=== PATIENT | male | born 1955 | race Caucasian/White ===

== ENCOUNTER → 2020-03-17 16:27 | Outpatient (BNVA) | payer SELFPAY | PROVIDERS: PCP Internal Medicine; Visit Provider Internal Medicine | DX: Z86.73 Personal history of transient ischemic attack (TIA), and cerebral infarction without residual deficits (principal); Z51.81 Encounter for therapeutic drug level monitoring; Z79.01 Long term (current) use of anticoagulants | CPT/HCPCS: 85610; 99211 ==

== ENCOUNTER 2020-03-20 06:11 | Outpatient (REF) | payer BC, SELFPAY | END 2020-03-20 06:12 | disposition home or self-care (01) | LOC: HO.LAB 06:11 | PROVIDERS: PCP Internal Medicine; Visit Provider Internal Medicine | DX: Z20.828 Contact with and (suspected) exposure to other viral communicable diseases (principal) | CPT/HCPCS: 87635 ==

== ENCOUNTER → 2020-03-27 15:52 | Outpatient (BNVA) | payer SELFPAY | PROVIDERS: PCP Internal Medicine; Visit Provider Internal Medicine | DX: Z86.73 Personal history of transient ischemic attack (TIA), and cerebral infarction without residual deficits (principal); Z79.01 Long term (current) use of anticoagulants; Z51.81 Encounter for therapeutic drug level monitoring | CPT/HCPCS: 85610; 99211 ==

== ENCOUNTER → 2020-03-31 15:53 | Outpatient (BNVA) | payer SELFPAY | PROVIDERS: PCP Internal Medicine; Visit Provider Internal Medicine | DX: Z86.73 Personal history of transient ischemic attack (TIA), and cerebral infarction without residual deficits (principal); Z51.81 Encounter for therapeutic drug level monitoring; Z79.01 Long term (current) use of anticoagulants | CPT/HCPCS: 85610; 99211 ==

== ENCOUNTER → 2020-04-06 15:36 | Outpatient (BNVA) | payer BC, SELFPAY | PROVIDERS: PCP Internal Medicine; Visit Provider Urology | DX: C61 Malignant neoplasm of prostate (principal) | CPT/HCPCS: 96372; J9217 ==

== ENCOUNTER → 2020-04-07 16:11 | Outpatient (BNVA) | payer BC, SELFPAY | PROVIDERS: PCP Internal Medicine; Visit Provider Internal Medicine | DX: Z86.73 Personal history of transient ischemic attack (TIA), and cerebral infarction without residual deficits (principal); Z51.81 Encounter for therapeutic drug level monitoring; Z79.01 Long term (current) use of anticoagulants | CPT/HCPCS: 85610; 99211 ==

== ENCOUNTER → 2020-04-25 15:48 | Outpatient (BNVA) | payer BC, SELFPAY | PROVIDERS: PCP Internal Medicine; Visit Provider Internal Medicine | DX: Z86.73 Personal history of transient ischemic attack (TIA), and cerebral infarction without residual deficits (principal); Z51.81 Encounter for therapeutic drug level monitoring; Z79.01 Long term (current) use of anticoagulants | CPT/HCPCS: 85610; 99211 ==

== ENCOUNTER → 2020-05-30 15:59 | Outpatient (BNVA) | payer BC, SELFPAY | PROVIDERS: PCP Internal Medicine; Visit Provider Internal Medicine | DX: Z86.73 Personal history of transient ischemic attack (TIA), and cerebral infarction without residual deficits (principal); Z51.81 Encounter for therapeutic drug level monitoring; Z79.01 Long term (current) use of anticoagulants | CPT/HCPCS: 85610; 99211 ==

== ENCOUNTER → 2020-06-06 16:13 | Outpatient (BNVA) | payer BC, SELFPAY | PROVIDERS: PCP Internal Medicine; Visit Provider Internal Medicine | DX: Z86.73 Personal history of transient ischemic attack (TIA), and cerebral infarction without residual deficits (principal); Z51.81 Encounter for therapeutic drug level monitoring; Z79.01 Long term (current) use of anticoagulants | CPT/HCPCS: 85610; 99211 ==

== ENCOUNTER → 2020-07-26 15:29 | Outpatient (BNVA) | payer BC, SELFPAY | PROVIDERS: PCP Internal Medicine; Visit Provider Internal Medicine | DX: Z86.73 Personal history of transient ischemic attack (TIA), and cerebral infarction without residual deficits (principal); Z51.81 Encounter for therapeutic drug level monitoring; Z79.01 Long term (current) use of anticoagulants | CPT/HCPCS: 99211 ==

== ENCOUNTER → 2020-08-16 16:02 | Outpatient (BNVA) | payer BC, SELFPAY | PROVIDERS: PCP Internal Medicine; Visit Provider Internal Medicine | DX: Z86.73 Personal history of transient ischemic attack (TIA), and cerebral infarction without residual deficits (principal); Z51.81 Encounter for therapeutic drug level monitoring; Z79.01 Long term (current) use of anticoagulants | CPT/HCPCS: 85610; 99211 ==

== ENCOUNTER 2020-09-05 15:34 | Outpatient (REF) | payer BC, SELFPAY ==
[2020-09-05 17:06] LABS: PSA,Total (Free>4and<10) 0.05 ng/mL (0.00-4.00)
== END 2020-09-05 15:35 | disposition home or self-care (01) ==
LOC: HO.LAB 15:34
PROVIDERS: PCP Internal Medicine; Visit Provider Urology
DX: N40.1 Benign prostatic hyperplasia with lower urinary tract symptoms (principal); N13.8 Other obstructive and reflux uropathy; Z12.5 Encounter for screening for malignant neoplasm of prostate
CPT/HCPCS: 36415; 84153

== ENCOUNTER → 2020-09-13 15:32 | Outpatient (BNVA) | payer BC, SELFPAY | PROVIDERS: PCP Internal Medicine; Visit Provider Urology ==

== ENCOUNTER → 2020-09-14 15:44 | Outpatient (BNVA) | payer BC, SELFPAY | PROVIDERS: PCP Internal Medicine; Visit Provider Internal Medicine | DX: Z86.73 Personal history of transient ischemic attack (TIA), and cerebral infarction without residual deficits (principal); Z79.01 Long term (current) use of anticoagulants; Z51.81 Encounter for therapeutic drug level monitoring | CPT/HCPCS: 85610; 99211 ==

== ENCOUNTER → 2020-10-12 15:53 | Outpatient (BNVA) | payer BC, SELFPAY | PROVIDERS: PCP Internal Medicine; Visit Provider Internal Medicine | DX: Z86.73 Personal history of transient ischemic attack (TIA), and cerebral infarction without residual deficits (principal); Z51.81 Encounter for therapeutic drug level monitoring; Z79.01 Long term (current) use of anticoagulants | CPT/HCPCS: 85610; 99211 ==

== ENCOUNTER → 2020-10-19 16:06 | Outpatient (BNVA) | payer BC, SELFPAY | PROVIDERS: PCP Internal Medicine; Visit Provider Urology | DX: C61 Malignant neoplasm of prostate (principal); Z79.818 Long term (current) use of other agents affecting estrogen receptors and estrogen levels | CPT/HCPCS: 96402; J9217 ==

== ENCOUNTER 2020-11-15 15:09 | Outpatient (REF) | payer BC, SELFPAY ==
[2020-11-15 15:29] LABS: MANUAL DIFF FLAG NO
[2020-11-15 15:31] LABS: Eosinophils Absolute Auto 0.1 X10*3/uL (0.0-0.4); Eosinophils Percent Auto 1.3 % (0-4); Hemoglobin 13.5 g/dl (14.0-18.0); Imm Gran Abs Auto 0.01 X10*3/uL (0.00-0.03); Imm Gran Pct Auto 0.2 % (0.0-0.4); Lymphocytes Absolute Auto 0.7 X10*3/uL (1.2-4.9); Lymphocytes Percent Auto 14.9 % (20-40); Mean Corpuscular HGB Conc 33.8 g/dl (31.0-36.0); Mean Corpuscular Hemoglobin 29.2 pg (27.0-33.0); Mean Corpuscular Volume 86.6 fL (80-98); Mean Platelet Volume 8.9 fL (9.4-12.4); Monocytes Absolute Auto 0.5 X10*3/uL (0.1-1.2); Monocytes Percent Auto 10.5 % (2-11); Neutrophils Absolute Auto 3.5 X10*3/uL (2.0-8.3); Neutrophils Percent Auto 73.1 % (45-73); Platelet Count 232 X10*3/uL (160-400); Red Blood Count 4.62 X10*6/uL (4.60-5.80); Red Cell Distribution Width 13.5 % (11.0-16.0); White Blood Count 4.8 X10*3/uL (4.8-10.8)
[2020-11-15 15:39] LABS: INTERNATIONAL NORM RATIO 2.8 (0.9-1.1); Prothrombin Time 33.2 SEC (10.8-13.0)
[2020-11-15 16:24] LABS: Alanine Aminotransferase 18 U/L (0-40); Alkaline Phosphatase 57 U/L (39-117); Anion Gap 12 (12-20); Aspartate Amino Transferase 22 U/L (5-37); Bilirubin Total 0.6 mg/dL (0.0-1.0); Blood Urea Nitrogen 15 mg/dL (9-16); Calcium 9.2 mg/dL (8.4-10.2); Carbon Dioxide 25 mmol/L (22-29); Chloride 107 mmol/L (96-108); Cholesterol 231 mg/dL; Estimated Glomerular Filt Rate > 60; Glucose Random 90 mg/dL (60-115); HDL Cholesterol 54 mg/dL; LDL Cholesterol Calculated 152 mg/dl; Potassium 3.9 mmol/L (3.3-5.1); Sodium 140 mmol/L (135-145); Total Protein 6.6 g/dL (6.5-8.0); Triglycerides 127 mg/dL
[2020-11-15 16:44] LABS: Free T4 (Free Thyroxine) 0.95 ng/dL (0.71-1.85); Thyroid Stimulating Hormone 1.37 uIU/mL (0.32-4.0)
[2020-11-15 16:55] LABS: Folate 12.3 ng/mL (> or = 4.0); Vitamin B12 291 pg/mL (200-900)
== END 2020-11-15 15:10 | disposition home or self-care (01) ==
LOC: HO.LAB 15:09
PROVIDERS: PCP Internal Medicine; Visit Provider Internal Medicine
DX: I82.409 Acute embolism and thrombosis of unspecified deep veins of unspecified lower extremity (principal); E78.00 Pure hypercholesterolemia, unspecified; Z86.73 Personal history of transient ischemic attack (TIA), and cerebral infarction without residual deficits; Z51.81 Encounter for therapeutic drug level monitoring; Z79.01 Long term (current) use of anticoagulants
CPT/HCPCS: 36415; 80053; 80061; 82607; 82746; 84439; 84443; 85025; 85610; 99211

== ENCOUNTER → 2020-12-13 15:56 | Outpatient (BNVA) | payer BC, SELFPAY | PROVIDERS: PCP Internal Medicine; Visit Provider Internal Medicine | DX: Z86.73 Personal history of transient ischemic attack (TIA), and cerebral infarction without residual deficits (principal); Z51.81 Encounter for therapeutic drug level monitoring; Z79.01 Long term (current) use of anticoagulants | CPT/HCPCS: 85610; 99211 ==

== ENCOUNTER → 2020-12-19 13:49 | Outpatient (REF) | payer BC, SELFPAY ==
--- NOTE | 2020-12-19 13:53 | CA_ITS ---
Transthoracic Echocardiogram Patient (Last, First, Middle): Carter Pantoja A Gender: Male Date of : 1955 Age: 65 Procedure Date: 12/19/2020 Procedure Type: Transthoracic Echocardiogram Location: OP Height: 177.8 cm Weight: 106.6 kg BSA: 2.24 m2 Heart Rate: bpm BP: 120 / 80 mmHg Cheese Supervisor: Referring MD: Cecil David MD Symptoms: I34.0 - Nonrheumatic mitral (valve) insufficiency Study Quality: Good ECG Rhythm: Sinus Conclusions: - The left ventricular systolic function is normal. The visually estimated ejection fraction is between 60-65%. - By prior report, h/o mitral valve repair. Posterior leaflet immobile. Trace to mild regurgitation. - There is moderate dilatation of the sinuses of Valsalva measuring 4.60 cm and mild dilatation of the ascending aorta measuring 3.70 cm. Findings Left Ventricle Normal left ventricular cavity size. The left ventricular systolic function is normal. The visually estimated ejection fraction is between 60-65%. There is no evidence of regional wall motion abnormalities. E/E prime ratio is between 8 and 15 consistent with indeterminate filling pressures. Evidence suggests grade I (mild) diastolic dysfunction. Mild focal hypertrophy of the basal septum. Right Ventricle Normal right ventricular cavity size and systolic function. Atria Both atria are normal in size. Aortic Valve There is a normal trileaflet aortic valve. There is no aortic valve stenosis. There is trace (trivial) aortic valve regurgitation. Mitral Valve There is no mitral valve stenosis. By prior report, h/o mitral valve repair. Posterior leaflet immobile. Trace to mild regurgitation. Pulmonic Valve The pulmonic valve was not well visualized. There is trace pulmonic valve regurgitation. Tricuspid Valve Normal tricuspid valve structure. There is trace tricuspid valve regurgitation. The pulmonary artery systolic pressure is normal. Great Vessels There is moderate dilatation of the sinuses of Valsalva measuring 4.60 cm and mild dilatation of the ascending aorta measuring 3.70 cm. Venous The inferior vena cava is normal in size and collapses greater than 50% with inspiration. Pericardium/Pleural There is no evidence of pericardial effusion. Prior Study Comparison No significant change compared to prior study dated: 08/21/2019. Measurements 2D Linear Measurements RVIDd: 3.18 RVIDd Index: 1.42 IVSd: 0.91 0.6-0.9/0.6-1.0 cm LVIDd: 5.42 3.9-5.3/4.2-5.9 cm LVIDd Index: 2.42 2.4-3.2/2.2-3.1 cm/m2 LVIDs: 3.32 2.0-3.6 cm LVPWd: 1.10 0.7-1.1 cm Ao Root: 4.60 2.1-3.5 cm LA Diam: 4.60 2.7-3.8/3.0-4.0 cm LAIDs Index: 2.05 1.5-2.3 cm/m2 LV Mass: 261.33 67-162/88-224 g LV Mass Index: 116.67 43-95/49-115 g/m2 LVOT Diam: 2.40 3.0+(-)1.3 cm 2D Systolic Function EF 4C: 63.80 >55% EF 2C: 43.10 >55% Mitral Valve MV VTI: 0.39 MV Pk [place]: 1.29 MV Mn [place]: 0.83 MV Pk Grad: 7.00 MV Mn Grad: 3.00 MV Pk E: 1.02 MV PK A: 1.23 MV Decel Time: 385.00 E/A: 0.80 E'Lateral: 8.05 E'Medial: 5.98 E/E' Med: 17.10 E/E' Lat: 12.70 PHT: 124.00 MVA PHT: 1.77 MVA Continuity: 1.98 Decel [place]: 2.99 Aortic Valve AoV Pk [place]: 1.08 AoV Mn [place]: 0.79 AoV VTI: 0.25 AoV Pk Grad: 5.00 Aov Mn Grad: 3.00 GWENDOLYN Cont.VTI: 3.15 LVOT LVOT Pk [place]: 0.88 LVOT Mn [place]: 0.52 LVOT VTI: 0.17 LVOT Pk Grad: 3.00 LVOT Mn Grad: 1.00 LVOT Diam: 2.40 LVOT Area: 4.52 Diastolic Function MV Pk E: 1.02 MV Pk A: 1.23 E/A: 0.80 E'Medial: 5.98 E/E' Med: 17.10 E' Laterial: 8.05 E/E' Lat: 12.70 Right Ventricle TAPSE (mm): 2.25 Tricuspid Valve RA Press: 3.00 Great Vessels Aorta Ao Root-2D: 4.60 2.0-3.7 cm Sinus of Valsalva: 4.60 2.0-3.5 cm Ao Asc: 3.70 2.1-3.4 cm Ao Arch: 3.20 Updated in Other Vendor System with Status of Final Zain Fuentes MD electronically signed on 12/22/2020 1:16:51 PM with status of Final
== END ==
LOC: HO.CARD 13:49
PROVIDERS: Visit Provider Internal Medicine Cardiovascular Disease
DX: I34.0 Nonrheumatic mitral (valve) insufficiency (principal)
CPT/HCPCS: 93306

== ENCOUNTER 2021-01-12 15:10 | Outpatient (REF) | payer BC, SELFPAY ==
[2021-01-12 17:25] LABS: Prostate Specific Antigen < 0.05 ng/mL (<0.05-4.0)
[2021-01-17 14:50] LABS: Testosterone, Total 17 ng/dL (250-1100)
== END 2021-01-12 15:11 | disposition home or self-care (01) ==
LOC: HO.LAB 15:10
PROVIDERS: PCP Internal Medicine; Visit Provider Urology
DX: Z12.5 Encounter for screening for malignant neoplasm of prostate (principal); C61 Malignant neoplasm of prostate; Z86.73 Personal history of transient ischemic attack (TIA), and cerebral infarction without residual deficits; Z51.81 Encounter for therapeutic drug level monitoring; Z79.01 Long term (current) use of anticoagulants
CPT/HCPCS: 36415; 84153; 84403; 85610; 99211

== ENCOUNTER → 2021-01-18 15:48 | Outpatient (BNVA) | payer BC, SELFPAY | PROVIDERS: PCP Internal Medicine; Visit Provider Urology ==

== ENCOUNTER → 2021-02-16 15:55 | Outpatient (BNVA) | payer BC, SELFPAY | PROVIDERS: PCP Internal Medicine; Visit Provider Internal Medicine | DX: Z86.73 Personal history of transient ischemic attack (TIA), and cerebral infarction without residual deficits (principal); Z51.81 Encounter for therapeutic drug level monitoring; Z79.01 Long term (current) use of anticoagulants | CPT/HCPCS: 85610; 99211 ==

== ENCOUNTER 2021-02-21 16:42 | Outpatient (REF) | payer BC, SELFPAY ==
[2021-02-21 16:55] LABS: MANUAL DIFF FLAG NO
[2021-02-21 17:52] LABS: Basophils Percent Auto 0.2 % (0-2); Eosinophils Absolute Auto 0.1 X10*3/uL (0.0-0.4); Eosinophils Percent Auto 1.7 % (0-4); Hematocrit 41.4 % (42-52); Hemoglobin 13.8 g/dl (14.0-18.0); Imm Gran Abs Auto 0.02 X10*3/uL (0.00-0.03); Imm Gran Pct Auto 0.4 % (0.0-0.4); Immature Retic Fraction 8.9 % (2.3-13.4); Mean Corpuscular HGB Conc 33.3 g/dl (31.0-36.0); Mean Corpuscular Hemoglobin 28.9 pg (27.0-33.0); Mean Corpuscular Volume 86.6 fL (80-98); Mean Platelet Volume 9.5 fL (9.4-12.4); Monocytes Absolute Auto 0.5 X10*3/uL (0.1-1.2); Neutrophils Absolute Auto 3.5 X10*3/uL (2.0-8.3); Neutrophils Percent Auto 67.7 % (45-73); Platelet Count 246 X10*3/uL (160-400); Red Blood Count 4.78 X10*6/uL (4.60-5.80); Red Cell Distribution Width 13.2 % (11.0-16.0); Retic HGB Equivalent 35.2 pg (30.0-35.0); Reticulocyte Percent 1.6 % (0.5-1.8); Reticulocytes Absolute 0.077 X10*6/uL (0.026-0.095); White Blood Count 5.2 X10*3/uL (4.8-10.8)
[2021-02-21 18:10] LABS: Alanine Aminotransferase 90 U/L (0-40); Albumin Level 4.3 g/dL (3.5-5.0); Alkaline Phosphatase 67 U/L (39-117); Anion Gap 13 (12-20); Aspartate Amino Transferase 44 U/L (5-37); Bilirubin Total 0.6 mg/dL (0.0-1.0); Blood Urea Nitrogen 16 mg/dL (9-16); Calcium 9.3 mg/dL (8.4-10.2); Carbon Dioxide 28 mmol/L (22-29); Chloride 102 mmol/L (96-108); Cholesterol 269 mg/dL; Estimated Glomerular Filt Rate > 60; Glucose Random 84 mg/dL (60-115); HDL Cholesterol 52 mg/dL; Iron 47 mcg/dL (45-160); LDL Cholesterol Calculated 186 mg/dl; Percent Iron Saturation 15 % (15-50); Potassium 4.3 mmol/L (3.3-5.1); Sodium 139 mmol/L (135-145); Total Iron Binding Capacity 318 mcg/dL (228-428); Total Protein 7.4 g/dL (6.5-8.0); Triglycerides 156 mg/dL; Unsaturated Iron Binding 271 ug/dL
[2021-02-21 18:29] LABS: Ferritin 355 ng/mL (20-250)
== END 2021-02-21 16:43 | disposition home or self-care (01) ==
LOC: HO.LAB 16:42
PROVIDERS: PCP Internal Medicine; Visit Provider Internal Medicine
DX: D64.9 Anemia, unspecified (principal); E78.00 Pure hypercholesterolemia, unspecified
CPT/HCPCS: 36415; 80053; 80061; 82728; 83540; 85025; 85045

== ENCOUNTER → 2021-03-06 15:15 | Outpatient (BNVA) | payer BC, SELFPAY | PROVIDERS: PCP Internal Medicine; Visit Provider Internal Medicine | DX: Z86.73 Personal history of transient ischemic attack (TIA), and cerebral infarction without residual deficits (principal); Z51.81 Encounter for therapeutic drug level monitoring; Z79.01 Long term (current) use of anticoagulants | CPT/HCPCS: 85610; 99211 ==

== ENCOUNTER 2021-03-15 09:50 | Outpatient (REF) | payer BC, SELFPAY ==
--- NOTE | ~2021-03-15 | US_ITS ---
EXAMINATION: US ABDOMEN COMPLETE CLINICAL INFORMATION: Elevated LFTs. COMPARISON: CTA chest 08/15/2017 and 08/09/2015 TECHNIQUE: Real-time imaging of the abdominal viscera. FINDINGS: PANCREAS: Not well visualized due to bowel gas ABDOMINAL AORTA: The proximal, mid, and distal segments are normal in caliber. INFERIOR VENA CAVA: Visualized portions are normal. LIVER: The liver is normal in size. The liver contour is normal. Parenchymal echogenicity is normal. There are 2 cysts in the right lobe of the liver measuring 2.5 cm and 2.4 x 1.7 x 1.7 cm. No other focal liver lesion is seen. There is no intrahepatic biliary duct dilatation seen. GALLBLADDER: Normal. The gallbladder is physiologically distended without evidence of stones, sludge, polyps, wall thickening or pericholecystic fluid. COMMON BILE DUCT: Normal in caliber measuring 0.42 cm in diameter. RIGHT KIDNEY: There is a 2.8 x 2.5 x 2.5 cm cyst in the midpole. No hydronephrosis or renal calculi. The kidney measures 13.5 cm in maximum dimension. LEFT KIDNEY: Normal. No hydronephrosis. No renal calculi or focal parenchymal lesions. The kidney measures 13.0 cm in maximum dimension. SPLEEN: Normal. The spleen measures 12.2 cm in maximum dimension. FREE FLUID: None. US/US abdomen complete IMPRESSION: Liver and right renal cysts. Limited visualization of the pancreas.
[2021-03-15 11:15] LABS: MANUAL DIFF FLAG NO
[2021-03-15 11:26] LABS: Basophils Percent Auto 0.3 % (0-2); Eosinophils Absolute Auto 0.1 X10*3/uL (0.0-0.4); Eosinophils Percent Auto 1.7 % (0-4); Hematocrit 39.3 % (42-52); Hemoglobin 13.1 g/dl (14.0-18.0); Imm Gran Abs Auto 0.01 X10*3/uL (0.00-0.03); Imm Gran Pct Auto 0.3 % (0.0-0.4); Lymphocytes Absolute Auto 0.9 X10*3/uL (1.2-4.9); Lymphocytes Percent Auto 24.7 % (20-40); Mean Corpuscular HGB Conc 33.3 g/dl (31.0-36.0); Mean Corpuscular Hemoglobin 28.9 pg (27.0-33.0); Mean Corpuscular Volume 86.8 fL (80-98); Mean Platelet Volume 9.7 fL (9.4-12.4); Monocytes Absolute Auto 0.4 X10*3/uL (0.1-1.2); Monocytes Percent Auto 12.8 % (2-11); Neutrophils Absolute Auto 2.1 X10*3/uL (2.0-8.3); Neutrophils Percent Auto 60.2 % (45-73); Platelet Count 219 X10*3/uL (160-400); Red Blood Count 4.53 X10*6/uL (4.60-5.80); Red Cell Distribution Width 13.5 % (11.0-16.0); Retic HGB Equivalent 33.2 pg (30.0-35.0); Reticulocyte Percent 1.4 % (0.5-1.8); Reticulocytes Absolute 0.063 X10*6/uL (0.026-0.095); White Blood Count 3.4 X10*3/uL (4.8-10.8)
[2021-03-15 11:34] LABS: Appearance Urine HAZY; Color Urine YELLOW; Glucose Urine UA NEG (NEG); Leukocyte Esterase Urine NEG (NEG); Nitrite Urine NEG (NEG); PH 5.5 (5.0-8.0); Specific Gravity - Urine >= 1.030 (1.005-1.025); Urine Blood NEG (NEG); Urine Ketones NEG (NEG); Urine Protein NEG (NEG-TRACE)
[2021-03-15 11:47] LABS: Amorphous Sediment Urine 1+ /LPF; Mucus Urine 3+ /LPF; RBC Urine 0 /HPF (0); Squamous Epithelial Cell Urine 1+ /LPF; WBC Urine 0 /HPF (0-4)
[2021-03-15 11:54] LABS: Alanine Aminotransferase 24 U/L (0-40); Albumin Level 3.8 g/dL (3.5-5.0); Alkaline Phosphatase 54 U/L (39-117); Aspartate Amino Transferase 22 U/L (5-37); Bilirubin Direct 0.3 mg/dL (0.0-0.5); Bilirubin Total 0.7 mg/dL (0.0-1.0); Iron 83 mcg/dL (45-160); Percent Iron Saturation 30 % (15-50); Total Iron Binding Capacity 278 mcg/dL (228-428); Total Protein 6.6 g/dL (6.5-8.0); Unsaturated Iron Binding 195 ug/dL
[2021-03-15 12:05] LABS: Ferritin 247 ng/mL (20-250)
[2021-03-15 12:09] LABS: HBc Num1 0.06 S/CO (0.00-0.79); HBsAGNum1 0.17 S/CO (0.00-0.99); Hepatitis B Core Antibody Nonreactive (Nonreactive); Hepatitis B Surface Antigen Negative (Negative); ~Hepatitis B Surface Antibody NONREACTIVE (Nonreactive)
[2021-03-15 12:12] LABS: ~Hepatitis C Antibody Nonreactive (Nonreactive)
== END 2021-03-15 09:51 | disposition home or self-care (01) ==
LOC: HO.HMGCX 09:50
PROVIDERS: PCP Internal Medicine; Visit Provider Internal Medicine
DX: R79.89 Other specified abnormal findings of blood chemistry (principal); R94.5 Abnormal results of liver function studies; C61 Malignant neoplasm of prostate
CPT/HCPCS: 36415; 76700; 80076; 81001; 82728; 83540; 85025; 85045; 86704; 86706; 86803; 87340

== ENCOUNTER → 2021-03-20 14:38 | Outpatient (BNVA) | payer BC, SELFPAY | PROVIDERS: PCP Internal Medicine; Referring Provider Internal Medicine; Visit Provider Internal Medicine Cardiovascular Disease | DX: I63.9 Cerebral infarction, unspecified (principal); I71.2 Thoracic aortic aneurysm, without rupture; Z98.890 Other specified postprocedural states | CPT/HCPCS: 93005 ==

== ENCOUNTER → 2021-04-03 15:48 | Outpatient (BNVA) | payer BC, SELFPAY | PROVIDERS: PCP Internal Medicine; Visit Provider Internal Medicine | DX: Z86.73 Personal history of transient ischemic attack (TIA), and cerebral infarction without residual deficits (principal); Z51.81 Encounter for therapeutic drug level monitoring; Z79.01 Long term (current) use of anticoagulants | CPT/HCPCS: 85610; 99211 ==

== ENCOUNTER 2021-04-25 07:29 | Outpatient (REF) | payer BC, SELFPAY ==
[2021-04-25 09:11] LABS: Prostate Specific Antigen < 0.05 ng/mL (<0.05-4.0)
[2021-04-30 11:52] LABS: Testosterone, Total 25 ng/dL (250-1100)
== END 2021-04-25 07:30 | disposition home or self-care (01) ==
LOC: HO.LAB 07:29
PROVIDERS: PCP Internal Medicine; Visit Provider Urology
DX: Z12.5 Encounter for screening for malignant neoplasm of prostate (principal); C61 Malignant neoplasm of prostate
CPT/HCPCS: 36415; 84153; 84403

== ENCOUNTER → 2021-05-01 11:15 | Outpatient (BNVA) | payer BC, SELFPAY | PROVIDERS: PCP Internal Medicine; Visit Provider Internal Medicine | DX: C61 Malignant neoplasm of prostate (principal); Z86.73 Personal history of transient ischemic attack (TIA), and cerebral infarction without residual deficits; Z51.81 Encounter for therapeutic drug level monitoring; Z79.01 Long term (current) use of anticoagulants; Z79.818 Long term (current) use of other agents affecting estrogen receptors and estrogen levels | CPT/HCPCS: 85610; 96402; 99211; J9217 ==

== ENCOUNTER → 2021-05-24 15:42 | Outpatient (BNVA) | payer BC, SELFPAY | PROVIDERS: PCP Internal Medicine; Visit Provider Internal Medicine | DX: Z86.73 Personal history of transient ischemic attack (TIA), and cerebral infarction without residual deficits (principal); Z51.81 Encounter for therapeutic drug level monitoring; Z79.01 Long term (current) use of anticoagulants | CPT/HCPCS: 85610; 99211 ==

== ENCOUNTER → 2021-06-21 15:51 | Outpatient (BNVA) | payer BC, SELFPAY | PROVIDERS: PCP Internal Medicine; Visit Provider Internal Medicine | DX: Z86.73 Personal history of transient ischemic attack (TIA), and cerebral infarction without residual deficits (principal); Z51.81 Encounter for therapeutic drug level monitoring; Z79.01 Long term (current) use of anticoagulants | CPT/HCPCS: 85610; 99211 ==

== ENCOUNTER → 2021-07-19 15:40 | Outpatient (BNVA) | payer BC, SELFPAY | PROVIDERS: PCP Internal Medicine; Visit Provider Internal Medicine | DX: Z86.73 Personal history of transient ischemic attack (TIA), and cerebral infarction without residual deficits (principal); Z51.81 Encounter for therapeutic drug level monitoring; Z79.01 Long term (current) use of anticoagulants | CPT/HCPCS: 85610; 99211 ==

== ENCOUNTER 2021-08-10 08:24 | Outpatient (REF) | payer BC, SELFPAY ==
[2021-08-10 08:48] LABS: MANUAL DIFF FLAG NO
[2021-08-10 09:13] LABS: Basophils Percent Auto 0.3 % (0-2); Eosinophils Absolute Auto 0.1 X10*3/uL (0.0-0.4); Eosinophils Percent Auto 1.8 % (0-4); Hematocrit 41.2 % (42.0-52.0); Hemoglobin 13.2 g/dl (14.0-18.0); Imm Gran Abs Auto 0.01 X10*3/uL (0.00-0.03); Imm Gran Pct Auto 0.3 % (0.0-0.4); Immature Retic Fraction 9.6 % (2.3-13.4); Lymphocytes Absolute Auto 0.8 X10*3/uL (1.2-4.9); Lymphocytes Percent Auto 22.5 % (20-40); Mean Corpuscular Hemoglobin 28.2 pg (27.0-33.0); Mean Platelet Volume 9.9 fL (9.4-12.4); Monocytes Absolute Auto 0.4 X10*3/uL (0.1-1.2); Monocytes Percent Auto 11.7 % (2-11); Neutrophils Absolute Auto 2.1 x10*3/uL (2.0-8.3); Neutrophils Percent Auto 63.4 % (45-73); Platelet Count 216 X10*3/uL (160-400); Red Blood Count 4.68 X10*6/uL (4.60-5.80); Red Cell Distribution Width 13.9 % (11.0-16.0); Retic HGB Equivalent 32.5 pg (30.0-35.0); Reticulocyte Percent 1.2 % (0.5-1.8); Reticulocytes Absolute 0.055 X10*6/uL (0.026-0.095); White Blood Count 3.3 X10*3/uL (4.8-10.8)
[2021-08-10 09:50] LABS: Alanine Aminotransferase 16 U/L (0-40); Albumin Level 3.9 g/dL (3.5-5.0); Alkaline Phosphatase 48 U/L (39-117); Anion Gap 13 (12-20); Aspartate Amino Transferase 20 U/L (5-37); Bilirubin Total 0.6 mg/dL (0.0-1.0); Blood Urea Nitrogen 19 mg/dL (9-16); Calcium 9.5 mg/dL (8.4-10.2); Carbon Dioxide 26 mmol/L (22-29); Chloride 106 mmol/L (96-108); Cholesterol 224 mg/dL; Estimated Glomerular Filt Rate > 60; Glucose Random 90 mg/dL (60-115); HDL Cholesterol 48 mg/dL; Iron 84 mcg/dL (45-160); LDL Cholesterol Calculated 158 mg/dl; Percent Iron Saturation 30 % (15-50); Potassium 4.1 mmol/L (3.3-5.1); Sodium 141 mmol/L (135-145); Total Iron Binding Capacity 280 mcg/dL (228-428); Total Protein 6.7 g/dL (6.5-8.0); Triglycerides 94 mg/dL; Unsaturated Iron Binding 196 ug/dL
[2021-08-10 10:09] LABS: Ferritin 184 ng/mL (20-250); Free T4 (Free Thyroxine) 1.12 ng/dL (0.71-1.85)
[2021-08-10 10:13] LABS: Prostate Specific Antigen < 0.05 ng/mL (<0.05-4.0); Thyroid Stimulating Hormone 2.25 uIU/mL (0.32-4.0)
[2021-08-10 10:30] LABS: Folate 10.2 ng/mL (> or = 4.0); Vitamin B12 262 pg/mL (200-900)
[2021-08-15 21:07] LABS: Testosterone, Total 17 ng/dL (250-1100)
== END 2021-08-10 08:25 | disposition home or self-care (01) ==
LOC: HO.LAB 08:24
PROVIDERS: Absent Provider Internal Medicine; PCP Internal Medicine; Visit Provider Urology
DX: E78.00 Pure hypercholesterolemia, unspecified (principal); C61 Malignant neoplasm of prostate; Z12.5 Encounter for screening for malignant neoplasm of prostate
CPT/HCPCS: 36415; 80053; 80061; 82607; 82728; 82746; 83540; 84153; 84403; 84439; 84443; 85025; 85045

== ENCOUNTER → 2021-08-17 11:18 | Outpatient (BNVA) | payer BC, SELFPAY | PROVIDERS: PCP Internal Medicine; Visit Provider Urology | DX: C61 Malignant neoplasm of prostate (principal); E78.00 Pure hypercholesterolemia, unspecified | CPT/HCPCS: Q3014 ==

== ENCOUNTER → 2021-08-23 08:02 | Outpatient (BNVA) | payer BC, SELFPAY | PROVIDERS: PCP Internal Medicine; Visit Provider Internal Medicine | DX: Z86.73 Personal history of transient ischemic attack (TIA), and cerebral infarction without residual deficits (principal); Z51.81 Encounter for therapeutic drug level monitoring; Z79.01 Long term (current) use of anticoagulants | CPT/HCPCS: 85610; 99211 ==

== ENCOUNTER → 2021-09-20 15:51 | Outpatient (BNVA) | payer BC, SELFPAY | PROVIDERS: PCP Internal Medicine; Visit Provider Internal Medicine | DX: Z86.73 Personal history of transient ischemic attack (TIA), and cerebral infarction without residual deficits (principal); Z79.01 Long term (current) use of anticoagulants; Z51.81 Encounter for therapeutic drug level monitoring | CPT/HCPCS: 85610; 99211 ==

== ENCOUNTER → 2021-10-18 15:48 | Outpatient (BNVA) | payer BC, SELFPAY | PROVIDERS: PCP Internal Medicine; Visit Provider Internal Medicine | DX: Z86.73 Personal history of transient ischemic attack (TIA), and cerebral infarction without residual deficits (principal); Z79.01 Long term (current) use of anticoagulants; Z51.81 Encounter for therapeutic drug level monitoring | CPT/HCPCS: 85610; 99211 ==

== ENCOUNTER → 2021-11-15 16:04 | Outpatient (BNVA) | payer BC, SELFPAY | PROVIDERS: PCP Internal Medicine; Visit Provider Internal Medicine | DX: Z86.73 Personal history of transient ischemic attack (TIA), and cerebral infarction without residual deficits (principal); Z51.81 Encounter for therapeutic drug level monitoring; Z79.01 Long term (current) use of anticoagulants | CPT/HCPCS: Q3014 ==

== ENCOUNTER → 2021-11-16 08:34 | Outpatient (BNVA) | payer BC, SELFPAY | PROVIDERS: PCP Internal Medicine; Visit Provider Internal Medicine | DX: Z86.73 Personal history of transient ischemic attack (TIA), and cerebral infarction without residual deficits (principal); Z51.81 Encounter for therapeutic drug level monitoring; Z79.01 Long term (current) use of anticoagulants | CPT/HCPCS: 85610; 99212 ==

== ENCOUNTER → 2021-11-19 08:48 | Outpatient (BNVA) | payer BC, SELFPAY | PROVIDERS: PCP Internal Medicine; Visit Provider Internal Medicine | DX: Z86.73 Personal history of transient ischemic attack (TIA), and cerebral infarction without residual deficits (principal); Z51.81 Encounter for therapeutic drug level monitoring; Z79.01 Long term (current) use of anticoagulants | CPT/HCPCS: 85610; 99211 ==

== ENCOUNTER → 2021-11-29 08:30 | Outpatient (BNVA) | payer BC, SELFPAY | PROVIDERS: PCP Internal Medicine; Visit Provider Internal Medicine | DX: Z86.73 Personal history of transient ischemic attack (TIA), and cerebral infarction without residual deficits (principal); Z51.81 Encounter for therapeutic drug level monitoring; Z79.01 Long term (current) use of anticoagulants | CPT/HCPCS: 85610; 99211 ==

== ENCOUNTER 2021-12-12 07:11 | Outpatient (REF) | payer BC, SELFPAY ==
[2021-12-12 09:39] LABS: Prostate Specific Antigen < 0.05 ng/mL (<0.05-4.0)
== END 2021-12-12 07:12 | disposition home or self-care (01) ==
LOC: HO.LAB 07:11
PROVIDERS: PCP Internal Medicine; Visit Provider Urology
DX: Z12.5 Encounter for screening for malignant neoplasm of prostate (principal); C61 Malignant neoplasm of prostate
CPT/HCPCS: 36415; 84153

== ENCOUNTER → 2021-12-31 15:54 | Outpatient (BNVA) | payer MEDICARE, SELFPAY | PROVIDERS: PCP Internal Medicine; Visit Provider Internal Medicine | DX: Z86.73 Personal history of transient ischemic attack (TIA), and cerebral infarction without residual deficits (principal); Z51.81 Encounter for therapeutic drug level monitoring; Z79.01 Long term (current) use of anticoagulants | CPT/HCPCS: 85610; 99211 ==

== ENCOUNTER 2022-02-07 06:50 | Outpatient (REF) | payer MEDICARE, SELFPAY ==
[2022-02-07 06:56] LABS: MANUAL DIFF FLAG NO
[2022-02-07 07:24] LABS: Basophils Percent Auto 0.3 % (0-2); Eosinophils Absolute Auto 0.1 X10*3/uL (0.0-0.4); Eosinophils Percent Auto 3.3 % (0-4); Hematocrit 41.6 % (42.0-52.0); Hemoglobin 13.4 g/dl (14.0-18.0); Imm Gran Abs Auto 0.01 X10*3/uL (0.00-0.03); Imm Gran Pct Auto 0.3 % (0.0-0.4); Lymphocytes Absolute Auto 1.1 X10*3/uL (1.2-4.9); Lymphocytes Percent Auto 29.5 % (20-40); Mean Corpuscular HGB Conc 32.2 g/dl (31.0-36.0); Mean Corpuscular Hemoglobin 27.9 pg (27.0-33.0); Mean Corpuscular Volume 86.7 fL (80.0-98.0); Mean Platelet Volume 9.6 fL (9.4-12.4); Monocytes Absolute Auto 0.5 X10*3/uL (0.1-1.2); Monocytes Percent Auto 13.4 % (2-11); Neutrophils Percent Auto 53.2 % (45-73); Platelet Count 232 X10*3/uL (160-400); Red Cell Distribution Width 13.1 % (11.0-16.0); White Blood Count 3.7 X10*3/uL (4.8-10.8)
[2022-02-07 07:47] LABS: Alanine Aminotransferase 19 U/L (0-40); Alkaline Phosphatase 57 U/L (39-117); Anion Gap 12 (12-20); Aspartate Amino Transferase 22 U/L (5-37); Bilirubin Total 0.6 mg/dL (0.0-1.0); Blood Urea Nitrogen 15 mg/dL (9-16); Calcium 9.3 mg/dL (8.4-10.2); Carbon Dioxide 28 mmol/L (22-29); Chloride 102 mmol/L (96-108); Cholesterol 242 mg/dL; Estimated Glomerular Filt Rate > 60; Glucose Random 88 mg/dL (60-115); HDL Cholesterol 49 mg/dL; LDL Cholesterol Calculated 173 mg/dl; Potassium 4.4 mmol/L (3.3-5.1); Sodium 138 mmol/L (135-145); Total Protein 7.1 g/dL (6.5-8.0); Triglycerides 102 mg/dL
[2022-02-07 08:25] LABS: Folate 11.9 ng/mL (> or = 4.0); Vitamin B12 650 pg/mL (200-900)
== END 2022-02-07 06:51 | disposition home or self-care (01) ==
LOC: HO.LAB 06:50
PROVIDERS: PCP Internal Medicine; Visit Provider Internal Medicine
DX: E78.00 Pure hypercholesterolemia, unspecified (principal); D64.9 Anemia, unspecified
CPT/HCPCS: 36415; 80053; 80061; 82607; 82746; 84403; 85025

== ENCOUNTER → 2022-02-08 07:59 | Outpatient (BNVA) | payer MEDICARE, SELFPAY | PROVIDERS: PCP Internal Medicine; Visit Provider Internal Medicine | DX: Z86.73 Personal history of transient ischemic attack (TIA), and cerebral infarction without residual deficits (principal); Z79.01 Long term (current) use of anticoagulants; Z51.81 Encounter for therapeutic drug level monitoring | CPT/HCPCS: 85610; 99211 ==

== ENCOUNTER → 2022-02-27 08:25 | Outpatient (REF) | payer MEDICARE, SELFPAY ==
--- NOTE | 2022-02-27 08:27 | CA_ITS ---
Transthoracic Echocardiogram Patient (Last, First, Middle): Carter Pantoja A Gender: Male Date of : 1955 Age: 67 Procedure Date: 02/27/2022 Procedure Type: Transthoracic Echocardiogram Location: OP Height: 177.8 cm Weight: 106.6 kg BSA: 2.24 m2 Heart Rate: bpm BP: 120 / 80 mmHg Cerner Analyst: TO/VH Referring MD: Cecil David MD Floor Inspector: Cecil David MD Symptoms: Z98.890 - Other specified postprocedural states Study Quality: Fair ECG Rhythm: Sinus Conclusions: - 1. Normal LV systolic function with impaired relaxation filling pattern 2. Adequate mitral valve repair With mild mitral regurgitation 3. Moderately dilated aortic root and mildly dilated ascending aorta at 4.1 cm 4. Normal RV systolic pressure 5. No pericardial effusion Findings Left Ventricle Normal left ventricular size, thickness, and systolic function. The visually estimated ejection fraction is between 60-65%. Spectral Doppler is indicative of an impaired relaxation filling pattern. Right Ventricle Normal right ventricular cavity size and systolic function. Atria The left atrium is likely dilated. There is no evidence of interatrial shunt. The right atrium is normal in size. Aortic Valve Normal aortic valve structure and function. There is no aortic valve stenosis. There is no aortic valve regurgitation. Mitral Valve The mitral valve appears myxomatous. There is mild anterior and severe posterior mitral leaflet thickening. The posterior mitral leaflet is immobile. There is mild mitral valve regurgitation. There is no mitral valve stenosis. Pulmonic Valve The pulmonic valve was not well visualized. Tricuspid Valve Likely normal tricuspid valve structure and function. There is trace tricuspid valve regurgitation. The right ventricular systolic pressure is normal. The right ventricular systolic pressure is 18 mmHg. Normal right atrial pressure. There is no evidence of pulmonary hypertension. Great Vessels The pulmonary artery was not well visualized. There is moderate dilatation of the sinuses of Valsalva and mild dilatation of the ascending aorta. Venous The inferior vena cava is normal in size and collapses greater than 50% with inspiration. Pericardium/Pleural There is no evidence of pericardial effusion. Prior Study Comparison No significant change compared to prior study dated: 12/19/2020. Measurements 2D Linear Measurements IVSd: 1.03 0.6-0.9/0.6-1.0 cm LVIDd: 4.90 3.9-5.3/4.2-5.9 cm LVIDd Index: 2.19 2.4-3.2/2.2-3.1 cm/m2 LVIDs: 3.41 2.0-3.6 cm LVPWd: 1.03 0.7-1.1 cm LA Diam: 3.60 2.7-3.8/3.0-4.0 cm LAIDs Index: 1.61 1.5-2.3 cm/m2 LV Mass: 228.28 67-162/88-224 g LV Mass Index: 101.91 43-95/49-115 g/m2 LVOT Diam: 2.50 3.0+(-)1.3 cm 2D Systolic Function EF 4C: 65.90 >55% EF 2C: 55.60 >55% EF BiP: 61.00 >55% Mitral Valve MV VTI: 0.45 MV Pk [place]: 1.19 MV Mn [place]: 0.83 MV Pk Grad: 6.00 MV Mn Grad: 3.00 MV Pk E: 1.08 MV PK A: 1.08 MV Decel Time: 322.00 E/A: 1.00 E'Lateral: 8.27 E'Medial: 4.90 E/E' Med: 22.00 E/E' Lat: 13.10 PHT: 94.00 MVA PHT: 2.34 MVA Continuity: 1.[address] [place]: 3.35 Aortic Valve AoV Pk [place]: 1.15 AoV Mn [place]: 0.78 AoV VTI: 0.22 AoV Pk Grad: 5.00 Aov Mn Grad: 3.00 GWENDOLYN Cont.VTI: 3.24 LVOT LVOT Pk [place]: 0.64 LVOT Mn [place]: 0.42 LVOT VTI: 0.15 LVOT Pk Grad: 2.00 LVOT Mn Grad: 1.00 LVOT Diam: 2.50 LVOT Area: 4.91 Diastolic Function MV Pk E: 1.08 MV Pk A: 1.08 E/A: 1.00 E'Medial: 4.90 E/E' Med: 22.00 E' Laterial: 8.27 E/E' Lat: 13.10 Right Ventricle TAPSE (mm): 18.90 TVS' [place]: 10.70 Tricuspid Valve TR Pk [place]: 1.94 TR Pk Grad: 15.00 RA Press: 3.00 RVSP: 18.00 Great Vessels Aorta Sinus of Valsalva: 4.79 2.0-3.5 cm Ao Asc: 4.10 2.1-3.4 cm Updated in Other Vendor System with Status of Final Cecil David MD electronically signed on 02/27/2022 5:43:10 PM with status of Final
== END ==
LOC: HO.CARD 08:25
PROVIDERS: Visit Provider Internal Medicine Cardiovascular Disease
DX: Z98.890 Other specified postprocedural states (principal)
CPT/HCPCS: 93306

== ENCOUNTER → 2022-03-07 15:37 | Outpatient (BNVA) | payer MEDICARE, SELFPAY | PROVIDERS: PCP Internal Medicine; Visit Provider Internal Medicine | DX: Z86.73 Personal history of transient ischemic attack (TIA), and cerebral infarction without residual deficits (principal); Z79.01 Long term (current) use of anticoagulants; Z51.81 Encounter for therapeutic drug level monitoring | CPT/HCPCS: 85610; 99211 ==

== ENCOUNTER → 2022-03-21 14:04 | Outpatient (BNVA) | payer MEDICARE, SELFPAY | PROVIDERS: PCP Internal Medicine; Referring Provider Internal Medicine; Visit Provider Internal Medicine Cardiovascular Disease | DX: I71.20 Thoracic aortic aneurysm, without rupture, unspecified (principal); I34.0 Nonrheumatic mitral (valve) insufficiency; I34.1 Nonrheumatic mitral (valve) prolapse; Z86.73 Personal history of transient ischemic attack (TIA), and cerebral infarction without residual deficits; Z79.01 Long term (current) use of anticoagulants; Z98.890 Other specified postprocedural states | CPT/HCPCS: 93005; 99212 ==

== ENCOUNTER → 2022-04-11 15:42 | Outpatient (BNVA) | payer MEDICARE, SELFPAY | PROVIDERS: PCP Internal Medicine; Visit Provider Internal Medicine | DX: Z86.73 Personal history of transient ischemic attack (TIA), and cerebral infarction without residual deficits (principal); Z51.81 Encounter for therapeutic drug level monitoring; Z79.01 Long term (current) use of anticoagulants | CPT/HCPCS: 85610; 99211 ==

== ENCOUNTER → 2022-04-12 14:50 | Outpatient (BNVA) | payer MEDICARE, SELFPAY | PROVIDERS: PCP Internal Medicine; Visit Provider Internal Medicine | DX: Z86.73 Personal history of transient ischemic attack (TIA), and cerebral infarction without residual deficits (principal); Z79.01 Long term (current) use of anticoagulants; Z51.81 Encounter for therapeutic drug level monitoring | CPT/HCPCS: 85610; 99211 ==

== ENCOUNTER → 2022-04-17 14:26 | Outpatient (BNVA) | payer MEDICARE, SELFPAY | PROVIDERS: PCP Internal Medicine; Visit Provider Internal Medicine | DX: Z86.73 Personal history of transient ischemic attack (TIA), and cerebral infarction without residual deficits (principal); Z79.01 Long term (current) use of anticoagulants; Z51.81 Encounter for therapeutic drug level monitoring | CPT/HCPCS: 85610; 99211 ==

== ENCOUNTER → 2022-05-15 15:54 | Outpatient (BNVA) | payer MEDICARE, SELFPAY | PROVIDERS: PCP Internal Medicine; Visit Provider Internal Medicine | DX: Z86.73 Personal history of transient ischemic attack (TIA), and cerebral infarction without residual deficits (principal); Z79.01 Long term (current) use of anticoagulants; Z51.81 Encounter for therapeutic drug level monitoring | CPT/HCPCS: 85610; 99211 ==

== ENCOUNTER → 2022-06-12 15:36 | Outpatient (BNVA) | payer MEDICARE, SELFPAY | PROVIDERS: PCP Internal Medicine; Visit Provider Internal Medicine | DX: Z86.73 Personal history of transient ischemic attack (TIA), and cerebral infarction without residual deficits (principal); Z79.01 Long term (current) use of anticoagulants; Z51.81 Encounter for therapeutic drug level monitoring | CPT/HCPCS: 85610; 99211 ==

== ENCOUNTER 2022-06-13 07:07 | Outpatient (REF) | payer MEDICARE, SELFPAY ==
[2022-06-13 08:48] LABS: Prostate Specific Antigen < 0.10 ng/mL (<0.05-4.0)
[2022-06-21 18:23] LABS: Testosterone, Total 169 ng/dL (250-1100)
== END 2022-06-13 07:08 | disposition home or self-care (01) ==
LOC: HO.LAB 07:07
PROVIDERS: PCP Internal Medicine; Visit Provider Urology
DX: C61 Malignant neoplasm of prostate (principal); E29.1 Testicular hypofunction
CPT/HCPCS: 36415; 84153; 84403

== ENCOUNTER → 2022-06-21 11:41 | Outpatient (BNVA) | payer MEDICARE, SELFPAY | PROVIDERS: PCP Internal Medicine; Visit Provider Urology | DX: C61 Malignant neoplasm of prostate (principal); N52.35 Erectile dysfunction following radiation therapy; E78.00 Pure hypercholesterolemia, unspecified; Z79.01 Long term (current) use of anticoagulants; Z79.899 Other long term (current) drug therapy | CPT/HCPCS: 99212 ==

== ENCOUNTER → 2022-07-08 15:39 | Outpatient (BNVA) | payer MEDICARE, SELFPAY | PROVIDERS: PCP Internal Medicine; Visit Provider Internal Medicine | DX: Z86.73 Personal history of transient ischemic attack (TIA), and cerebral infarction without residual deficits (principal); Z79.01 Long term (current) use of anticoagulants; Z51.81 Encounter for therapeutic drug level monitoring | CPT/HCPCS: 85610; 99211 ==

== ENCOUNTER → 2022-08-02 15:50 | Outpatient (BNVA) | payer MEDICARE, SELFPAY | PROVIDERS: PCP Internal Medicine; Visit Provider Internal Medicine | DX: Z86.73 Personal history of transient ischemic attack (TIA), and cerebral infarction without residual deficits (principal); Z79.01 Long term (current) use of anticoagulants; Z51.81 Encounter for therapeutic drug level monitoring | CPT/HCPCS: 85610; 99211 ==

== ENCOUNTER → 2022-08-16 15:40 | Outpatient (BNVA) | payer MEDICARE, SELFPAY | PROVIDERS: PCP Internal Medicine; Visit Provider Internal Medicine | DX: Z86.73 Personal history of transient ischemic attack (TIA), and cerebral infarction without residual deficits (principal); Z79.01 Long term (current) use of anticoagulants; Z51.81 Encounter for therapeutic drug level monitoring | CPT/HCPCS: 85610; 99211 ==

== ENCOUNTER → 2022-09-13 15:48 | Outpatient (BNVA) | payer MEDICARE, SELFPAY | PROVIDERS: PCP Internal Medicine; Visit Provider Internal Medicine | DX: Z86.73 Personal history of transient ischemic attack (TIA), and cerebral infarction without residual deficits (principal); Z79.01 Long term (current) use of anticoagulants; Z51.81 Encounter for therapeutic drug level monitoring | CPT/HCPCS: 85610; 99211 ==

== ENCOUNTER → 2022-10-11 15:54 | Outpatient (BNVA) | payer MEDICARE, SELFPAY | PROVIDERS: PCP Internal Medicine; Visit Provider Internal Medicine | DX: Z86.73 Personal history of transient ischemic attack (TIA), and cerebral infarction without residual deficits (principal); Z79.01 Long term (current) use of anticoagulants; Z51.81 Encounter for therapeutic drug level monitoring | CPT/HCPCS: 85610; 99211 ==

== ENCOUNTER → 2022-11-15 15:32 | Outpatient (BNVA) | payer MEDICARE, SELFPAY | PROVIDERS: PCP Internal Medicine; Visit Provider Internal Medicine | DX: Z86.73 Personal history of transient ischemic attack (TIA), and cerebral infarction without residual deficits (principal); Z51.81 Encounter for therapeutic drug level monitoring; Z79.01 Long term (current) use of anticoagulants | CPT/HCPCS: 85610; 99211 ==

== ENCOUNTER 2022-11-25 06:56 | Outpatient (REF) | payer MEDICARE, SELFPAY | END 2022-11-25 06:57 | disposition home or self-care (01) | LOC: HO.LAB 06:56 | PROVIDERS: PCP Internal Medicine; Visit Provider Internal Medicine | DX: E78.00 Pure hypercholesterolemia, unspecified (principal); D64.9 Anemia, unspecified | CPT/HCPCS: 36415; 80053; 80061; 82607; 82728; 82746; 83540; 85025; 85045 ==

== ENCOUNTER 2022-12-02 14:46 | Outpatient (AMB) | payer MEDICARE, SELFPAY ==
[2022-12-02 14:47] VITALS: BP 148/92; PULSE 68; O2SAT 98; BMI 32.2
--- NOTE | 2022-12-02 14:47 | MHC.PC.OV ---
Vital Signs 12/02/22 14:47 12/02/22 14:57 Height 5 ft 11 in Weight 231 lb BMI 32.2 BP 148/92 H 132/80 Blood Pressure Location Lt brachial Lt brachial Position Sitting Sitting Pulse 68 Pulse Source Pulse Oximeter Pulse Oximetry (%) 98 Oxygen Delivery Method Room Air Intake Visit Reasons: Hypercholesterolemia Allergies No Known Allergies Allergy (Verified 12/02/22 14:47) Medication List - Last Reconciled 12/02/22 by Freya Zarco MD cyanocobalamin (vitamin B-12) 1,000 mcg PO DAILY metoprolol succinate ER 50 mg PO DAILY rosuvastatin 5 mg PO DAILY tadalafil 10 mg PO DAILY 90 days warfarin See Protocol 7.5MG X3DAYS/ 5MG X4DAYS; Tobacco use date assessed: 12/02/22 Fall risk assessment: No Falls in past year Last assessed Fall Risk: 12/02/22 Dental Screening Dental Screen Date: 12/02/22 Did you have a dental visit in the last 12 months?: Yes Did you have a dental problem in the last 6 months where you did not have access to dental care?: No Was dental information given to patient?: Patient has dentist HPI Hypercholesterolemia HPI Details 67-year-old male with a history of prostate cancer(August 2019) DVT on anticoagulation CVA hypercholesterolemia anemia ascending aorta dilatation mitral regurg last seen in January 2022 for physical exam. Patient is here for follow-up. Urology notes May 2022 on surveillance PSA and testosterone. Patient has also seen Cardiology history of mitral valve repair for severe mitral regurg secondary to mitral valve prolapse ascending aorta aneurysm November 2020 4.6 and ascending aorta 3.7 continuing with metoprolol therapy echocardiogram February 2022Normal LV systolic function with impaired relaxation filling pattern 2. Adequate mitral valve repair With mild mitral regurgitation 3. Moderately dilated aortic root and mildly dilated ascending aorta at 4.1 cm 4. Normal RV systolic pressure [facility] Medical History Ascending aortic aneurysm CVA (cerebral vascular accident) Hypercholesterolemia Mitral valve regurgitation Surgical History H/O mitral valve repair History of umbilical hernia repair Hx of appendectomy Family History (Updated 12/02/22 @ 14:48 by Rocio Morrow CMA) Father Liver cancer Mother Lung cancer Social History Housing: House Alcohol intake: current Alcohol intake frequency: a few times a month Patient Tobacco Use Status: Never used Tobacco e-Cigarette/Vaping Use: Never Used Second Hand Smoke Exposure: No service: No Current occupational status: employed Cognitive needs: No Hearing needs: No Vision needs: No Questionnaire PHQ-9 Over the last 2 weeks, how often have you been bothered by any of the following problems? 1. Little interest or pleasure in doing things: more than half the days 2. Feeling down, depressed, or hopeless: more than half the days 3. Trouble falling or staying asleep, or sleeping too much: more than half the days 4. Feeling tired or having little energy: more than half the days 5. Poor appetite or overeating: not at all 6. Feeling bad about yourself - or that you are a failure or have let yourself or your family down: not at all 7. Trouble concentrating on things, such as reading the newspaper or watching television: not at all 8. Moving or speaking so slowly that other people could have noticed. Or the opposite - being so fidgety or restless that you have been moving around a lot more than usual: not at all 9. Thoughts that you would be better off or of hurting yourself in some way: not at all Total score: 8 Depression Screening Interpretation: Positive Source: Developed by Drs. Jorge Ribera, Otilia Davidson, Juan A Barboza and colleagues, with an educational lisha from [employer]. Thrive Questionnaire Date Thrive assessed: 12/02/22 I am a: Patient What is your living situation today?: I have a steady place to live Within the past 12 months, did the food you bought not last and you didn't have the money to get more?: Never true Within the past 12 months, did you worry whether your food would run out before you got money to buy more?: Never true Do you have trouble paying for medicines?: No Do you have trouble getting transportation to medical appointments?: No Do you have trouble paying your heating and electricity bill?: No Do you have trouble taking care of your child, family member or friend?: No Do you have trouble with day-to-day activities such as bathing, preparing meals, shopping, managing finances, etc.?: No Are you currently unemployed and looking for a job?: No Are you interested in more education?: No Currently or been in a relationship where the following occur: no concerns reported AUDIT C Alcohol Use Questionnaire (AUDIT-C) 1. How often do you have a drink containing alcohol?: 4 or more times a week 2. How many drinks containing alcohol do you have on a typical day when you are drinking?: 1 or 2 3. How often do you have six or more drinks on one occasion?: Never Total Score: 4 YEHUDA-7 AMB Questionnaire YEHUDA-7 Date YEHUDA - 7 assessed: 12/02/22 Feeling nervous, anxious, or on edge: 0 = Not at all Not being able to stop or control worryin = Not at all Worrying too much about different things: 0 = Not at all Trouble relaxin = Not at all Being so restless that it is hard to sit still: 0 = Not at all Becoming easily annoyed or irritable: 0 = Not at all Feeling afraid as if something awful might happen: 0 = Not at all Total YEHUDA-7 score (0-4 normal; 5-9 mild; 10-14 moderate; 15-21 severe): 0 Source: Developed by Drs. Jorge Ribera, Otilia Davidson, Juan A Barboza and colleagues, with an educational lisha from [employer]. Physical exam (Primary Care) Vital Signs: Last Vital Signs Pulse 68 12/02/22 14:47 BP 132/80 12/02/22 14:57 Pulse Ox 98 12/02/22 14:47 Oxygen Delivery Method Room Air 12/02/22 14:47 BMI result Body Mass Index 32.2 Tobacco/Smoking Status: Tobacco use Status Tobacco use date assessed 12/02/22 12/02/22 14:52 Patient Tobacco Use Status Never used Tobacco 12/02/22 14:52 e-Cigarette/Vaping Use Never Used 12/02/22 14:52 PHQ-9: PHQ-9 Score PHQ-9: Total score 8 12/02/22 19:34 Depression Screening Interpretation: Positive Thrive Assessment: Date of Thrive Assessment Date Thrive assessed 12/02/22 12/02/22 14:52 Currently or been in a relationship where the following occur: no concerns reported Const General: alert; No acute distress Eyes Conjunctivae: conjunctivae normal Resp Auscultation: clear to auscultation bilaterally Cardio Rate: regular rate Rhythm: regular rhythm GI Inspection: Yes normal to inspection Extrem General: Yes normal to inspection and No edema Assessment and Plan Assessment & Plan (1) Ascending aortic aneurysm: Comment: November 2020 sinus of Valsalva 4.6 cm, ascending aorta 3.7 cm, May 2022 Code(s): I71.2 - Thoracic aortic aneurysm, without rupture Plan: Continue to monitor by echocardiogram May 2019 (2) CVA (cerebral vascular accident): Comment: 2015, drooping of face, no weaness of arms Code(s): I63.9 - Cerebral infarction, unspecified Plan: Control the cholesterol, weight, blood pressure (3) Hypercholesterolemia: Code(s): E78.00 - Pure hypercholesterolemia, unspecified Plan: Avoid fried foods, chicken skin, eggs, butter margarine, pastries and meat. Be it pork or beef they have a lot of cholesterol LDL goal of less than 70 and triglyceride of less than 150 (4) DVT (deep venous thrombosis): Comment: R leg 2015 R distal popliteal Code(s): I82.409 - Acute embolism and thrombosis of unspecified deep veins of unspecified lower extremity Qualifiers: Affected thrombotic vein of extremity: popliteal Chronicity: chronic DVT location: lower extremity Laterality: right Qualified Code(s): I82.531 - Chronic embolism and thrombosis of right popliteal vein Plan: Continue with anticoagulation (5) Prostate cancer: Comment: 08/2019 diagnosis - high-grade prostate cancer localized with brachytherapy and GnRH Code(s): C61 - Malignant neoplasm of prostate Plan: Patient follows up with urology Orders: Orders Comprehensive Met. Panel 3 Months E78.00 - Pure hypercholesterolemia, unspecified Lipid Panel 3 Months E78.00 - Pure hypercholesterolemia, unspecified Medications: New rosuvastatin 5 mg PO DAILY 30 tabs 3RF E78.00 - Pure hypercholesterolemia, unspecified Coding Level of Care Code Est Pt Level 4 (42419) Diagnoses Ascending aortic aneurysm I71.2 CVA (cerebral vascular accident) I63.9 Hypercholesterolemia E78.00 DVT (deep venous thrombosis) I82.531 Affected thrombotic vein of extremity: popliteal Chronicity: chronic DVT location: lower extremity Laterality: right Prostate cancer C61
[2022-12-02 14:57] VITALS: BP 132/80
== END 2022-12-02 15:17 | disposition home or self-care (01) ==
PROVIDERS: Visit Provider Internal Medicine
DX: I71.21 Aneurysm of the ascending aorta, without rupture (principal); I63.9 Cerebral infarction, unspecified; I82.531 Chronic embolism and thrombosis of right popliteal vein; C61 Malignant neoplasm of prostate; E78.00 Pure hypercholesterolemia, unspecified
CPT/HCPCS: 99214

== ENCOUNTER 2022-12-06 07:52 | Outpatient (REF) | payer MEDICARE, SELFPAY ==
[2022-12-06 09:16] LABS: Prostate Specific Antigen < 0.10 ng/mL (<0.05-4.0)
[2022-12-12 03:53] LABS: Testosterone, Total 322 ng/dL (250-1100)
== END 2022-12-06 07:53 | disposition home or self-care (01) ==
LOC: HO.LAB 07:52
PROVIDERS: PCP Internal Medicine; Visit Provider Urology
DX: Z12.5 Encounter for screening for malignant neoplasm of prostate (principal); N52.35 Erectile dysfunction following radiation therapy
CPT/HCPCS: 36415; 84153; 84403

== ENCOUNTER 2022-12-20 10:40 | Outpatient (AMB) | payer MEDICARE, SELFPAY ==
[2022-12-20 10:48] LABS: Prothrombin Time Whole Bld POC 52.2 sec (11.1-13.5); ~PT, ~INR - Anti Coag Clinic 4.4 (0.9-1.1)
--- NOTE | 2022-12-20 10:54 | MHC.OFFVISCO ---
Intake Intake Visit Reasons: Anticoagulation Allergies No Known Allergies Allergy (Verified 12/20/22 11:42) Medication List - Last Reconciled 12/20/22 by Michelle Mock, RN cyanocobalamin (vitamin B-12) 1,000 mcg PO DAILY metoprolol succinate ER 50 mg PO DAILY rosuvastatin 5 mg PO DAILY tadalafil 10 mg PO DAILY 90 days warfarin See Protocol 7.5MG X3DAYS/ 5MG X4DAYS; Nursing Note Amb to [facility] feeling ok, has urology appt [address] Medications and supplements reviewed, noted start of rosuvastatin (raises INR, major, delayed per micromedex) on December 02, pt never called to let us know No other changes in health, diet, medications, or supplements Denies any unusual signs and symptoms of bruising, bleeding Denies any new Chest pain, SOB, or clotting INR: 4.4 above therapeutic range, discussed rosuvastatin raising effect and need for more freq monitoring and dosing adjustment pt to hold warfarin today and decrease dose tomorrow to 2.5mg, weekly dose adjusted to 7.5mg on only (vs x 2 days) and 5mg now x 6 days (vs 5 days) Nutritional guidance given: moderate greens today then balance greens and reds in diet F/U INR: 2 weeks as pt initially refusing anything other than 4 weeks, lengthy discussion regarding need for monitoring and pt has upcoming trip to [place] by plane 01/06, want to make sure dosing adjustment is not decreasing INR below range especially with planned air travel, clot risk if too low, bleeding risk if elevated Patient verbalizes understanding of instructions given with accurate read back/ teach back of dosing Anti-Coag Initial Assessment Social Hx Patient Tobacco Use Status: Never used Tobacco alcohol intake: current Alcohol intake frequency: a few times a month Coding Level of Care Code Est Patient Level 1 Diagnoses Current use of anticoagulant therapy Z79.01 Time Spent (min) 20 Assessment & Plan Assessment & Plan (1) Current use of anticoagulant therapy: Code(s): Z79.01 - joint terminal attack controller (current) use of anticoagulants Category: Medical
== END 2022-12-20 12:04 | disposition home or self-care (01) ==
LOC: HO.ACS 10:40
PROVIDERS: PCP Internal Medicine; Visit Provider Internal Medicine
DX: Z79.01 Long term (current) use of anticoagulants (principal)

== ENCOUNTER → 2022-12-20 10:40 | Outpatient (BNVA) | payer MEDICARE, SELFPAY | PROVIDERS: PCP Internal Medicine; Visit Provider Internal Medicine | DX: C61 Malignant neoplasm of prostate (principal); R53.83 Other fatigue; R06.83 Snoring; N52.35 Erectile dysfunction following radiation therapy; Z86.73 Personal history of transient ischemic attack (TIA), and cerebral infarction without residual deficits; Z79.01 Long term (current) use of anticoagulants; Z51.81 Encounter for therapeutic drug level monitoring | CPT/HCPCS: 85610; 99211; 99212 ==

== ENCOUNTER 2022-12-20 11:05 | Outpatient (AMB) | payer MEDICARE, SELFPAY ==
--- NOTE | 2022-12-20 11:36 | A.OFFVIS_ITS ---
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 Zarco. He has a past medical history of ascending aortic aneurysm, CVA, hypercholesteremia, mitral valve regurgitation, erectile dysfunction, and prostate cancer. He presents to the office today for follow-up of his prostate cancer and erectile dysfunction. Recent PSA and testosterone results reviewed with the patient today. Last labs PSA & Testosterone: 08/14 PSA <0.1, T 17, 12/14 <0.1, 06/17 <0.1, T 169, 12/15 <0.10, T 322 When asked patient reports to be doing and feeling well. He offers no issues or concerns at this time. He reports be happy with his current voiding parameters. He discusses compliance with 10 mg of tadalafil daily. He reports at times to have adequate erections for penetration. He would like to continue with this medication. When asked he denies urinary urgency, urinary frequency, incontinence, nocturia, hematuria, dysuria, foul smelling urine, changes to urinary stream, flank pain, fever, and or chills. Patient enquiring sleep study due to fatigue and snoring discussed referral for further assessment and evaluation. Prostate cancer: Grade group 4. XRT with hormones and brachy boost November 2019 Prostate cancer follow-up Prostate cancer was diagnosed 09/13/19 Dr Solano Diagnosis was reached by 09/13/19 needle biopsy, for elevated PSA, PSA at diagnosis 30, size at TRUS 30. The Inez grade is 8 4 cores from 12 5% 3+4 = 7,10% 3+4 = 7,5% 3+4 = 7, 20% , 4+4 = 8 Total 45%/1200% TNM Classification of Malignant Tumours (TNM) T1c. The D'Ajay (NCCN) risk category is High Risk (PSA > 20, Gl 8+, T3) Initial therapy - 12/12 XRT with boost brachy Imaging - bone scan negative, MRI organ contained Labs - 01/13 PSA < 0.1, T 17 Last GnRH 04/15 Therapeutic plan - laboratory surveillance PFSH Medical History Ascending aortic aneurysm CVA (cerebral vascular accident) Hypercholesterolemia Mitral valve regurgitation Surgical History H/O mitral valve repair History of umbilical hernia repair Hx of appendectomy Family History (Updated 12/02/22 @ 14:48 by Rocio [facility]) Father Liver cancer Mother Lung cancer Social History Housing: House Alcohol intake: current Alcohol intake frequency: a few times a month Patient Tobacco Use Status: Never used Tobacco e-Cigarette/Vaping Use: Never Used Second Hand Smoke Exposure: No service: No Current occupational status: employed Cognitive needs: No Hearing needs: No Vision needs: No Review of Systems Const Reports as per HPI Eyes Reports no additional complaints ENT Reports no additional complaints Card Reports as per HPI Resp Reports no additional complaints GI Reports no additional complaints Reports as per HPI Musc Reports no additional complaints Neuro Reports no additional complaints Psych Reports no additional complaints Endo Reports no additional complaints Alexis/Lymph Reports no additional complaints Aller/Immun Reports no additional complaints Physical Exam Const General: cooperative, healthy appearing, comfortable, no acute distress, well developed, alert and awake Orientation/consciousness: patient oriented x3 HEENT Head: Yes normal to inspection, Yes normocephalic and Yes atraumatic Ears: hearing grossly normal bilaterally Eyes General: appearance normal, both eyes and all related structures Neck Neck: Yes normal visual inspection and Yes trachea midline Chest Chest palpation & inspection: normal inspection of the chest Resp Effort & Inspection: normal respiratory effort and able to speak in complete sentences Cardio Rate: regular rate GI Inspection: Yes normal to inspection General: Yes no CVA tenderness Back/Spine/Pelvis Back: no CVA tenderness Skin General skin exam: no rashes or lesions noted Neuro General: patient oriented x3 Extrem General: Yes normal to inspection Psych Appearance: grossly normal and well kempt Mental Status: mental status grossly normal Speech and movement: Normal speech and movement present and Clear speech present Affect: normal affect Attitude: cooperative Thought process: Normal thought process present Thought content: Normal thought content present Insight: Good insight present (Psych) Judgement: Good judgement present (Psych) Assessment & Plan Assessment & Plan (1) Prostate cancer: Comment: 08/2019 diagnosis - high-grade prostate cancer localized with brachytherapy and GnRH Code(s): C61 - Malignant neoplasm of prostate (2) Fatigue: Code(s): R53.83 - Other fatigue (3) Snoring: Code(s): R06.83 - Snoring (4) Erectile dysfunction after prostate brachytherapy: Code(s): N52.35 - Erectile dysfunction following radiation therapy Plan Unable to obtain urine for urinalysis. Discussed recent PSA and testosterone levels with the patient today; as noted above. Continue Cialis 10 mg daily; refill or provided Patient reporting fatigue with snoring; will refer to sleep medicine for further assessment evaluation Patient is happy with current voiding parameters PSA and testosterone in 6 months Follow-up in 6 months with labs to be completed prior; or sooner with any issues, concerns, and or questions. Orders: Orders Prostate Specific Antigen 6 Months C61 - Malignant neoplasm of prostate Testosterone, Free/Total 6 Months C61 - Malignant neoplasm of prostate Referrals Sleep Medicine Referral R06.83 - Snoring, R53.83 - Other fatigue Medications: Refilled tadalafil 10 mg PO DAILY 90 tabs 1RF sexual activity 90 days N52.35 - Erectile dysfunction following radiation therapy Patient Instructions: The patient had an opportunity to ask questions regarding the treatment plan. All questions were answered. Physical exam, labs, and imaging were discussed and reviewed in detail. As well as risks, benefits, and discussion of treatment choices. No major barriers to understanding were identified. The patient expressed understanding and agreement with the above treatment plan. The patient was made aware they should contact our office by phone for worsening of their current condition, the appearance of new symptoms, or with any questions or concerns. Compliance is encouraged with any medications and follow up testing that is ordered. It is a privilege to be allowed the opportunity to participate in? your urological care.? Again, if you have any questions or concerns If you have any questions or concerns please do not hesitate to contact me. The office is [phone]. This note is constructed using voice recognition software. While every effort has been made to ensure accuracy division order analyst errors may have been included. Yours sincerely, TOÑA Krishnamurthy Coding Level of Care Code Est Pt Level 3 (45293) Diagnoses Prostate cancer C61 Fatigue R53.83 Snoring R06.83 Erectile dysfunction after prostate brachytherapy N52.35
== END 2022-12-20 12:11 | disposition home or self-care (01) ==
PROVIDERS: PCP Internal Medicine; Visit Provider Nurse Practitioner Family
DX: C61 Malignant neoplasm of prostate (principal); R53.83 Other fatigue; R06.83 Snoring; N52.35 Erectile dysfunction following radiation therapy
CPT/HCPCS: 99213

== ENCOUNTER 2023-01-03 14:23 | Outpatient (AMB) | payer MEDICARE, SELFPAY ==
[2023-01-03 14:33] LABS: Prothrombin Time Whole Bld POC 33.2 sec (11.1-13.5); ~PT, ~INR - Anti Coag Clinic 2.8 (0.9-1.1)
--- NOTE | 2023-01-03 14:40 | MHC.OFFVISCO ---
Intake Intake Visit Reasons: Anticoagulation Allergies No Known Allergies Allergy (Verified 01/03/23 14:27) Medication List - Last Reconciled 01/03/23 by Le Hay, RN cyanocobalamin (vitamin B-12) 1,000 mcg PO DAILY metoprolol succinate ER 50 mg PO DAILY rosuvastatin 5 mg PO DAILY tadalafil 10 mg PO DAILY 90 days warfarin See Protocol 7.5MG X3DAYS/ 5MG X4DAYS; Nursing Note INR: 2.8 in therapeutic range Medications and supplements reviewed NEW ON X 1 MONTH CAN RAISE THE INR, LEAVING FOR [place] Friday - ENC TO SEEK MED ATTENTION IF ANY UNUSUAL BLEEDING OR BRUISING - PT AGREEED Denies any signs and symptoms of bleeding or bruising or clotting. Bleeding, bruising, clotting discussed Nutritional guidance given - KEEP UP WEEKLY [place] Dose: 7.5MG X 1 DAY/ 5MG X 6 DAYS F/U INR: 01/24/23 AFTER RETURN FROM [place] Patient verbalizes understanding of instructions given Anti-Coag Initial Assessment Social Hx Patient Tobacco Use Status: Never used Tobacco alcohol intake: current Alcohol intake frequency: a few times a month Coding Level of Care Code Est Patient Level 1 Diagnoses Current use of anticoagulant therapy Z79.01 Assessment & Plan Assessment & Plan (1) Current use of anticoagulant therapy: Code(s): Z79.01 - FDC (current) use of anticoagulants Category: Medical
== END 2023-01-03 14:43 | disposition home or self-care (01) ==
LOC: HO.ACS 14:23
PROVIDERS: PCP Internal Medicine; Visit Provider Internal Medicine
DX: Z79.01 Long term (current) use of anticoagulants (principal)

== ENCOUNTER → 2023-01-03 14:23 | Outpatient (BNVA) | payer MEDICARE, SELFPAY | PROVIDERS: PCP Internal Medicine; Visit Provider Internal Medicine | DX: Z86.73 Personal history of transient ischemic attack (TIA), and cerebral infarction without residual deficits (principal); Z79.01 Long term (current) use of anticoagulants; Z51.81 Encounter for therapeutic drug level monitoring | CPT/HCPCS: 85610; 99211 ==

== ENCOUNTER 2023-01-24 14:45 | Outpatient (AMB) | payer MEDICARE, SELFPAY ==
[2023-01-24 14:53] LABS: ~PT, ~INR - Anti Coag Clinic 2.4 (0.9-1.1)
--- NOTE | 2023-01-24 15:00 | MHC.OFFVISCO ---
Intake Intake Visit Reasons: Anticoagulation Allergies No Known Allergies Allergy (Verified 01/24/23 14:45) Medication List - Last Reconciled 01/24/23 by Le Hay RN cyanocobalamin (vitamin B-12) 1,000 mcg PO DAILY metoprolol succinate ER 50 mg PO DAILY rosuvastatin 5 mg PO DAILY tadalafil 10 mg PO DAILY 90 days warfarin See Protocol 7.5MG X3DAYS/ 5MG X4DAYS; Nursing Note INR: 2.4 in therapeutic range Medications and supplements reviewed No changes in health, diet, medications, or supplements, PT RETRUN FROM [place] - STATED HE ATE WELL AND THE TRIP WAS AMAZING Denies any signs and symptoms of bleeding or bruising or clotting. Bleeding, bruising, clotting discussed Nutritional guidance given Dose: KEEP SAME DOSE 7.5MG X 1 DAY/ 5MG X 6 DAYS F/U INR: 1 MONTH PER PT REQUEST Patient verbalizes understanding of instructions given Anti-Coag Initial Assessment Social Hx Patient Tobacco Use Status: Never used Tobacco alcohol intake: current Alcohol intake frequency: a few times a month Coding Level of Care Code Est Patient Level 1 Diagnoses Current use of anticoagulant therapy Z79.01 Assessment & Plan Assessment & Plan (1) Current use of anticoagulant therapy: Code(s): Z79.01 - intermediate (current) use of anticoagulants Category: Medical
== END 2023-01-24 15:03 | disposition home or self-care (01) ==
LOC: HO.ACS 14:45
PROVIDERS: PCP Internal Medicine; Visit Provider Internal Medicine
DX: Z79.01 Long term (current) use of anticoagulants (principal)

== ENCOUNTER → 2023-01-24 14:45 | Outpatient (BNVA) | payer MEDICARE, SELFPAY | PROVIDERS: PCP Internal Medicine; Visit Provider Internal Medicine | DX: Z86.73 Personal history of transient ischemic attack (TIA), and cerebral infarction without residual deficits (principal); Z79.01 Long term (current) use of anticoagulants; Z51.81 Encounter for therapeutic drug level monitoring | CPT/HCPCS: 85610; 99211 ==

== ENCOUNTER 2023-02-20 16:05 | Outpatient (AMB) | payer MEDICARE, SELFPAY ==
[2023-02-20 16:22] VITALS: BP 104/76; PULSE 87; RESP 12; O2SAT 98; BMI 30.6
--- NOTE | 2023-02-20 16:22 | MHC.PC.OV ---
Vital Signs 02/20/23 16:22 Height 5 ft 11 in Weight 219 lb 6 oz BMI 30.6 BP 104/76 Blood Pressure Location Lt brachial Position Sitting Respiration 12 Pulse 87 Pulse Source Pulse Oximeter Pulse Oximetry (%) 98 Oxygen Delivery Method Room Air Intake Visit Reasons: Annual Exam Amortization Schedule Clerk Required: No Accompanied by: Self / Same As Patient Allergies No Known Allergies Allergy (Verified 02/20/23 16:29) Medication List - Last Reconciled 02/20/23 by Freya Zarco MD cyanocobalamin (vitamin B-12) 1,000 mcg PO DAILY metoprolol succinate ER 50 mg PO DAILY rosuvastatin 5 mg PO DAILY tadalafil 10 mg PO DAILY 90 days warfarin See Protocol 7.5MG X3DAYS/ 5MG X4DAYS; Tobacco use date assessed: 12/02/22 Fall risk assessment: No Falls in past year Last assessed Fall Risk: 02/20/23 Dental Screening Dental Screen Date: 02/20/23 Did you have a dental visit in the last 12 months?: Yes Did you have a dental problem in the last 6 months where you did not have access to dental care?: No Was dental information given to patient?: Patient has dentist HPI Annual Exam HPI Details 68-year-old obese male with a history of DVT on anticoagulation hypercholesterolemia, CVA ascending aortic aneurysm last seen in November 2022. Patient's last echocardiogram was done in February 2022 and a concern on dilated aortic root at 4.1. Patient is here for physical exam patient follows up with urology due to the history of prostate cancer August 2019 brachytherapy and GnRH therapy continue to be monitored [facility] Medical History Ascending aortic aneurysm CVA (cerebral vascular accident) Hypercholesterolemia Mitral valve regurgitation Surgical History H/O mitral valve repair History of umbilical hernia repair Hx of appendectomy Family History Father Liver cancer Mother Lung cancer Social History (Updated 02/20/23 @ 17:03 by Freya Zarco MD) Housing: House Alcohol intake: current Alcohol intake frequency: a few times a month Patient Tobacco Use Status: Never used Tobacco e-Cigarette/Vaping Use: Never Used Second Hand Smoke Exposure: No service: No Current occupational status: retired Cognitive needs: No Hearing needs: No Vision needs: Yes Questionnaire Thrive Questionnaire Date Thrive assessed: 12/02/22 YEHUDA-7 AMB Questionnaire YEHUDA-7 Date YEHUDA - 7 assessed: 12/02/22 Source: Developed by Drs. Jorge Ribera, Otilia Davidson, Juan A Barboza and colleagues, with an educational lisha from [employer]. Review of Systems Const Denies poor appetite and Denies weakness Eyes Denies no additional complaints ENT Reports Normal hearing present, Denies dizziness, Denies nasal congestion, Denies tinnitus and Denies sore throat Card Denies chest pain, Denies syncope, Denies rapid heart rate and Denies dyspnea Resp Denies cough and Denies dyspnea GI Denies change in stool character, Reports constipation, Denies diarrhea, Denies nausea and Denies vomiting Denies dysuria and Denies urinary frequency Neuro Reports Normal hearing present, Denies confusion, Denies dizziness, Denies syncope and Denies weakness Psych Denies confusion Physical exam (Primary Care) Vital Signs: Last Vital Signs Pulse 87 02/20/23 16:22 Resp 12 02/20/23 16:22 BP 104/76 02/20/23 16:22 Pulse Ox 98 02/20/23 16:22 Oxygen Delivery Method Room Air 02/20/23 16:22 BMI result Body Mass Index 30.6 Tobacco/Smoking Status: Tobacco use Status Tobacco use date assessed 12/02/22 02/20/23 16:25 Patient Tobacco Use Status Never used Tobacco 02/20/23 16:25 e-Cigarette/Vaping Use Never Used 02/20/23 16:25 Thrive Assessment: Date of Thrive Assessment Date Thrive assessed 12/02/22 02/20/23 16:25 Const General: alert and awake; No confusion Orientation/consciousness: No confusion HENMT Head: Yes normocephalic Ears: external ears normal and TM's normal bilaterally Face and sinus: Yes normal facial exam Mouth: moist mucous membranes Throat: Yes tonsils normal Eyes Conjunctivae: conjunctivae normal Pupils: Equal, round and reactive pupils present and Pupil accommodation reflex normal Direct Ophthalmoscopy: normal light reflex Neck Neck: No lymphadenopathy Thyroid: Thyroid normal Chest Chest palpation & inspection: normal inspection of the chest Resp Effort & Inspection: normal respiratory effort and no audible wheezes Auscultation: clear to auscultation bilaterally, no crackles, no wheezes and lung sounds not diminished Cardio Rate: regular rate Rhythm: regular rhythm Peripheral pulses: radial pulses present and dorsalis pedis present GI Other: guaiac negative prostate flat area Palpation (GI): no masses Auscultation: normal bowel sounds and normoactive bowel sounds Male General Exam: Yes normal external exam Skin General skin exam: no rashes or lesions noted Rashes: no rashes Neuro General: deep tendon reflexes 2+ bilaterally and No confusion Cranial nerves: Yes Equal, round and reactive pupils present, Yes Midline tongue present, Yes Normal hearing present and Yes Ability to bilaterally elevate shoulders present Cognition (Neuro): normal cognition Gait exam (Neuro): Normal gait present Motor exam (neuro): 5/5 motor strength present throughout Deep tendon reflexes (DTR's): Right brachioradialis reflex intensity grade: 2+, Left brachioradialis reflex intensity grade: 2+, Right patellar reflex intensity grade: 2+ and Left patellar reflex intensity grade: 2+ Extrem General: No edema Assessment and Plan Assessment & Plan (1) Annual physical exam: Code(s): Z00.00 - Encounter for general adult medical examination without abnormal findings (2) Hypersomnia: Code(s): G47.10 - Hypersomnia, unspecified Plan: Patient has been referred for sleep study scheduled to see sleep medicine physicians. (3) Ascending aortic aneurysm: Comment: November 2020 sinus of Valsalva 4.6 cm, ascending aorta 3.7 cm, 02/2022 4.1 cm, May 2022 Code(s): I71.2 - Thoracic aortic aneurysm, without rupture Plan: Continue to be monitored patient has a scheduled echocardiogram. (4) Hypercholesterolemia: Code(s): E78.00 - Pure hypercholesterolemia, unspecified Plan: Avoid fried foods, chicken skin, eggs, butter margarine, pastries and meat. Be it pork or beef they have a lot of cholesterol LDL goal of less than 100 preferably 70. November 2022 last blood work has been placed on rosuvastatin and so will follow-up on the results next week. (5) DVT (deep venous thrombosis): Comment: R leg 2016 R distal popliteal Code(s): I82.409 - Acute embolism and thrombosis of unspecified deep veins of unspecified lower extremity Qualifiers: DVT location: lower extremity Affected thrombotic vein of extremity: popliteal Chronicity: chronic Laterality: right Qualified Code(s): I82.531 - Chronic embolism and thrombosis of right popliteal vein Plan: Continue with anticoagulation with Coumadin (6) Prostate cancer: Comment: 08/2019 diagnosis - high-grade prostate cancer localized with brachytherapy and GnRH Code(s): C61 - Malignant neoplasm of prostate Plan: Patient continued to be followed up by Urology (7) CVA (cerebral vascular accident): Comment: 2015, drooping of face, no weaness of arms Code(s): I63.9 - Cerebral infarction, unspecified Plan: Patient is on blood thinners Orders: Orders RT home sleep study Today G47.10 - Hypersomnia, unspecified Complete Blood Count Auto Diff 364 Days E78.00 - Pure hypercholesterolemia, unspecified Comprehensive Met. Panel 364 Days E78.00 - Pure hypercholesterolemia, unspecified Free T4 (Free Thyroxine) 364 Days E78.00 - Pure hypercholesterolemia, unspecified Vitamin B12 and Folate 364 Days E78.00 - Pure hypercholesterolemia, unspecified Lipid Panel 364 Days E78.00 - Pure hypercholesterolemia, unspecified Magnesium 364 Days C61 - Malignant neoplasm of prostate Thyroid Stimulating Hormone 364 Days E78.00 - Pure hypercholesterolemia, unspecified PSA,Total (Free>4and<10) 364 Days C61 - Malignant neoplasm of prostate Coding Level of Care Code Est Pt Prev Care >65y(49939) Diagnoses Annual physical exam Z00.00 Hypersomnia G47.10 Ascending aortic aneurysm I71.2 Hypercholesterolemia E78.00 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
== END 2023-02-20 17:26 | disposition home or self-care (01) ==
PROVIDERS: Visit Provider Internal Medicine
DX: Z00.00 Encounter for general adult medical examination without abnormal findings (principal); I71.20 Thoracic aortic aneurysm, without rupture, unspecified; I82.531 Chronic embolism and thrombosis of right popliteal vein; C61 Malignant neoplasm of prostate
CPT/HCPCS: 99397

== ENCOUNTER 2023-02-21 15:26 | Outpatient (AMB) | payer MEDICARE, SELFPAY ==
[2023-02-21 15:31] LABS: Prothrombin Time Whole Bld POC 35.9 sec (11.1-13.5)
--- NOTE | 2023-02-21 15:37 | MHC.OFFVISCO ---
Intake Intake Visit Reasons: Anticoagulation Allergies No Known Allergies Allergy (Verified 02/21/23 15:26) Medication List - Last Reconciled 02/21/23 by Gissel Kaur RN cyanocobalamin (vitamin B-12) 1,000 mcg PO DAILY metoprolol succinate ER 50 mg PO DAILY rosuvastatin 5 mg PO DAILY tadalafil 10 mg PO DAILY 90 days warfarin See Protocol 7.5MG X3DAYS/ 5MG X4DAYS; Nursing Note NO CP,SOB,DIET/MED CHANGES,FALLS OR SX OF BLEEDING. CONTINUE PRESENT DOSE AND FOLLOW-UP IN 4 WEEKS. GOOD UNDERSTANDING OF DOSING INSTR. Anti-Coag Initial Assessment Social Hx Patient Tobacco Use Status: Never used Tobacco alcohol intake: current Alcohol intake frequency: a few times a month Coding Level of Care Code Est Patient Level 1 Diagnoses Current use of anticoagulant therapy Z79.01 Assessment & Plan Assessment & Plan (1) Current use of anticoagulant therapy: Code(s): Z79.01 - halfway (current) use of anticoagulants Category: Medical
== END 2023-02-21 15:39 | disposition home or self-care (01) ==
LOC: HO.ACS 15:26
PROVIDERS: PCP Internal Medicine; Visit Provider Internal Medicine
DX: Z79.01 Long term (current) use of anticoagulants (principal)

== ENCOUNTER → 2023-02-21 15:26 | Outpatient (BNVA) | payer MEDICARE, SELFPAY | PROVIDERS: PCP Internal Medicine; Visit Provider Internal Medicine | DX: Z86.73 Personal history of transient ischemic attack (TIA), and cerebral infarction without residual deficits (principal); Z79.01 Long term (current) use of anticoagulants; Z51.81 Encounter for therapeutic drug level monitoring | CPT/HCPCS: 85610; 99211 ==

== ENCOUNTER → 2023-02-25 08:24 | Outpatient (REF) | payer MEDICARE, SELFPAY ==
[2023-02-25 09:49] LABS: Alanine Aminotransferase 8 U/L (0-40); Albumin Level 4.1 g/dL (3.5-5.0); Alkaline Phosphatase 49 U/L (39-117); Anion Gap 9 (12-20); Aspartate Amino Transferase 18 U/L (5-37); Bilirubin Total 0.7 mg/dL (0.0-1.0); Blood Urea Nitrogen 21 mg/dL (9-16); Calcium 9.3 mg/dL (8.4-10.2); Carbon Dioxide 29 mmol/L (22-29); Chloride 106 mmol/L (96-108); Cholesterol 147 mg/dL (<200); Estimated Glomerular Filt Rate > 60; Glucose Random 91 mg/dL (60-115); HDL Cholesterol 47 mg/dL (>40); LDL Cholesterol Calculated 89 mg/dL (<100); Potassium 4.4 mmol/L (3.3-5.1); Sodium 140 mmol/L (135-145); Total Protein 7.3 g/dL (6.5-8.0); Triglycerides 56 mg/dL (<150)
--- NOTE | 2023-02-25 10:56 | CA_ITS ---
Transthoracic Echocardiogram Patient (Last, First, Middle): Carter Pantoja A Gender: Male Date of : 1955 Age: 68 Procedure Date: 02/25/2023 Procedure Type: Transthoracic Echocardiogram Location: OP Height: 177.8 cm Weight: 102.06 kg BSA: 2.19 m2 Heart Rate: 62 bpm BP: 112 / 78 mmHg Jump Iron Machine Presser: SB Referring MD: Cecil David MD Symptoms: I71.2 - Thoracic aortic aneurysm, without rupture Study Quality: Adequate ECG Rhythm: Sinus Conclusions: - Moderately increased left ventricular cavity size. - The left ventricular systolic function is normal. The calculated ejection fraction is 60% by biplane method. - s/p Mitral valve repair. Mean gradient 5mmHg at 61/min. MVA by VTi 1.6 sq cm. Overall, possible mild stenosis. - There is moderate dilatation of the sinuses of Valsalva measuring 4.50 cm. Findings Left Ventricle Moderately increased left ventricular cavity size. There is normal left ventricular wall thickness. The left ventricular systolic function is normal. The calculated ejection fraction is 60% by biplane method. There is no evidence of regional wall motion abnormalities. Diastolic function is indeterminate on the basis of available data. LV peak GLS -17.7%. Right Ventricle Mildly increased right ventricular cavity size. There is normal right ventricular systolic function. Atria Both atria are normal in size. Aortic Valve There is a normal trileaflet aortic valve. There is no aortic valve stenosis. There is no aortic valve regurgitation. Mitral Valve There is mild mitral valve regurgitation. s/p Mitral valve repair. Mean gradient 5mmHg at 61/min. MVA by VTi 1.6 sq cm. Overall, possible mild stenosis. Pulmonic Valve The pulmonic valve is likely normal. Tricuspid Valve There is trace tricuspid valve regurgitation. There is no evidence of pulmonary hypertension. Great Vessels The asc aorta is normal in size. There is moderate dilatation of the sinuses of Valsalva measuring 4.50 cm. Venous The inferior vena cava is normal in size and collapses greater than 50% with inspiration. Pericardium/Pleural There is no evidence of pericardial effusion. Prior Study Comparison Changes noted compared to prior study dated: 02/27/2022. Increase in LVEDD (6.3cm). Increase in gradients across the mitral valve with smaller area. Measurements 2D Linear Measurements IVSd: 0.68 0.6-0.9/0.6-1.0 cm LVIDd: 6.37 3.9-5.3/4.2-5.9 cm LVIDd Index: 2.91 2.4-3.2/2.2-3.1 cm/m2 LVIDs: 4.26 2.0-3.6 cm LVPWd: 0.81 0.7-1.1 cm Ao Root: 0.00 2.1-3.5 cm LA Diam: 4.30 2.7-3.8/3.0-4.0 cm LAIDs Index: 1.96 1.5-2.3 cm/m2 LV Mass: 236.00 67-162/88-224 g LV Mass Index: 107.76 43-95/49-115 g/m2 LVOT Diam: 2.50 3.0+(-)1.3 cm 2D Systolic Function EF 4C: 64.40 >55% EF 2C: 59.10 >55% EF BiP: 59.70 >55% Mitral Valve MV VTI: 0.53 MV Pk [place]: 1.64 MV Mn [place]: 1.09 MV Pk Grad: 11.00 MV Mn Grad: 5.00 MV Pk E: 1.56 MV PK A: 1.18 MV Decel Time: 411.00 E/A: 1.30 E'Lateral: 5.00 E'Medial: 3.81 E/E' Med: 40.90 E/E' Lat: 31.20 PHT: 120.00 MVA PHT: 1.83 MVA Continuity: 1.62 Decel [place]: 3.80 Aortic Valve AoV Pk [place]: 1.05 AoV Pk Grad: 4.00 GWENDOLYN: 4.90 LVOT LVOT Pk [place]: 0.87 LVOT Mn [place]: 0.52 LVOT VTI: 0.17 LVOT Pk Grad: 3.00 LVOT Mn Grad: 1.00 LVOT Diam: 2.50 LVOT Area: 4.91 Diastolic Function MV Pk E: 1.56 MV Pk A: 1.18 E/A: 1.30 E'Medial: 3.81 E/E' Med: 40.90 E' Laterial: 5.00 E/E' Lat: 31.20 Right Ventricle TAPSE (mm): 21.90 TVS' [place]: 12.20 Tricuspid Valve RA Press: 3.00 Great Vessels Aorta Ao Root-2D: 0.00 2.0-3.7 cm Sinus of Valsalva: 4.50 2.0-3.5 cm Ao Asc: 4.00 2.1-3.4 cm Pulmonary Valve PV Pk [place]: 0.86 Peak PV Grad: 3.00 Updated in Other Vendor System with Status of Final Zain Fuentes MD electronically signed on 02/25/2023 4:12:19 PM with status of Final
== END ==
LOC: HO.CARD 08:24
PROVIDERS: Absent Provider Internal Medicine; PCP Internal Medicine; Visit Provider Internal Medicine Cardiovascular Disease
DX: I71.20 Thoracic aortic aneurysm, without rupture, unspecified (principal); E78.00 Pure hypercholesterolemia, unspecified
CPT/HCPCS: 36415; 80053; 80061; 93306; 93356

== ENCOUNTER → 2023-02-25 10:56 | Outpatient (BNV) | payer MEDICARE, SELFPAY | PROVIDERS: Absent Provider Internal Medicine; PCP Internal Medicine; Visit Provider Internal Medicine | DX: I34.0 Nonrheumatic mitral (valve) insufficiency (principal) | CPT/HCPCS: 93306 ==

== ENCOUNTER 2023-03-18 13:40 | Outpatient (AMB) | payer MEDICARE, SELFPAY ==
[2023-03-18 13:44] VITALS: BP 138/76; PULSE 55; RESP 17; O2SAT 98; BMI 32.1
--- NOTE | 2023-03-18 13:44 | A.OFFPC_ITS ---
Vital Signs 03/18/23 13:44 Height 5 ft 11 in Weight 230 lb 4 oz BMI 32.1 BP 138/76 Blood Pressure Location Lt brachial Position Sitting Respiration 17 Pulse 55 Pulse Source Pulse Oximeter Pulse Oximetry (%) 98 Oxygen Delivery Method Room Air Intake Visit Reasons: Mouth Pain Intake Note: The patient is here due to persistent mouth discomfort over the past week. It appears that the patient has been grappling with a dental problem, and the previously prescribed antibiotic does not appear to have alleviated the issue. [place] Required: No Accompanied by: Self / Same As Patient Allergies No Known Allergies Allergy (Verified 03/18/23 14:40) Tobacco use date assessed: 12/02/22 Fall risk assessment: No Falls in past year Last assessed Fall Risk: 03/18/23 Dental Screening Dental Screen Date: 03/18/23 Did you have a dental visit in the last 12 months?: Yes Did you have a dental problem in the last 6 months where you did not have access to dental care?: No Was dental information given to patient?: Patient has dentist HPI HPI Comments History of Present Illness Details 68-year-old obese male with a history of DVT on anticoagulation hypercholesterolemia, CVA ascending aortic aneurysm Patient of Dr. Zarco presents today with mouth pain. Patient reports with 1 week of right upper mouth, over right maxillary sinus region. Patient reports that he went to the dentist this morning for further evaluation and they were unable to find anything wrong with his teeth. Patient reports was previously treated with amoxicillin last week with no improvement of pain. Patient denies any nasal congestion, fevers, chills. Patient taking Tylenol for the pain with minimal relief. Patient requesting repeat antibiotic treatment for sinusitis. Will obtain urgent sinus x-ray for further evaluation and repeat antibiotic treatment if warranted. [facility] Medical History Ascending aortic aneurysm CVA (cerebral vascular accident) Hypercholesterolemia Mitral valve regurgitation Surgical History H/O mitral valve repair History of umbilical hernia repair Hx of appendectomy Family History Father Liver cancer Mother Lung cancer Social History Housing: House Alcohol intake: current Alcohol intake frequency: a few times a month Patient Tobacco Use Status: Never used Tobacco e-Cigarette/Vaping Use: Never Used Second Hand Smoke Exposure: No service: No Current occupational status: retired Cognitive needs: No Hearing needs: No Vision needs: Yes Questionnaire Thrive Questionnaire Date Thrive assessed: 12/02/22 YEHUDA-7 AMB Questionnaire YEHUDA-7 Date YEHUDA - 7 assessed: 12/02/22 Source: Developed by Drs. Jorge Ribera, Otilia Davidson, Juan A Barboza and colleagues, with an educational lisha from [employer]. Physical exam (Primary Care) Vital Signs: Last Vital Signs Pulse 55 03/18/23 13:44 Resp 17 03/18/23 13:44 BP 138/76 03/18/23 13:44 Pulse Ox 98 03/18/23 13:44 Oxygen Delivery Method Room Air 03/18/23 13:44 BMI result Body Mass Index 32.1 Tobacco/Smoking Status: Tobacco use Status Tobacco use date assessed 12/02/22 03/18/23 13:45 Patient Tobacco Use Status Never used Tobacco 03/18/23 13:45 e-Cigarette/Vaping Use Never Used 03/18/23 13:45 Thrive Assessment: Date of Thrive Assessment Date Thrive assessed 12/02/22 03/18/23 13:45 Const General: cooperative and no acute distress Orientation/consciousness: patient oriented x3 HENMT Head: Yes normocephalic and Yes atraumatic General nose exam: No nasal discharge present Face and sinus: Yes sinus tenderness (right maxillary sinus tenderness) Mouth: Normal oral and palatal mucosa present Eyes Conjunctivae: conjunctivae normal Chest Chest palpation & inspection: normal inspection of the chest Resp Effort & Inspection: normal respiratory effort Auscultation: clear to auscultation bilaterally, no crackles, no rhonchi and no wheezes Cardio Rate: regular rate Rhythm: regular rhythm Heart sounds: S1 normal heart sound present and S2 normal heart sound present Peripheral pulses: dorsalis pedis present GI Inspection: Yes normal to inspection General: Yes no CVA tenderness Back/Spine/Pelvis Back: no CVA tenderness Neuro General: patient oriented x3 Extrem General: No edema Results AMB INR Fingerstick AMB INR Fingerstick 2.2 Last Edit by Le Hay RN on 03/18/23 14:46 MANUAL ENTRY NO INTERFACING Assessment and Plan Assessment & Plan (1) Pain of maxillary sinus: Code(s): J34.89 - Other specified disorders of nose and nasal sinuses Plan: Sinus x-ray revealed Complete opacification of right maxillary sinus from inflammatory changes. Patient prescribed Augmentin b.i.d. x7 days. Signs and symptoms reviewed with patient when to seek medical attention and follow-up with PCP. Plan Keep scheduled follow-up with PCP or follow-up sooner if needed. Orders: Orders XR sinus <3V 03/18/23 J34.89 - Other specified disorders of nose and nasal sinuses Coding Level of Care Code Est Pt Level 3 (15189) Diagnoses Pain of maxillary sinus J34.89
== END 2023-03-18 14:04 | disposition home or self-care (01) ==
PROVIDERS: PCP Internal Medicine; Visit Provider Nurse Practitioner Family
DX: J34.89 Other specified disorders of nose and nasal sinuses (principal)
CPT/HCPCS: 99213

== ENCOUNTER 2023-03-18 14:08 | Outpatient (REF) | payer MEDICARE, SELFPAY ==
--- NOTE | ~2023-03-18 | XR_ITS ---
EXAMINATION: XR SINUSES CLINICAL INFORMATION: 6 disorders of nose and nasal sinuses. COMPARISON: None available. TECHNIQUE: 3 views of the sinuses were obtained. FINDINGS: There is complete opacification of right maxillary sinus. The left maxillary, ethmoid and sphenoid sinuses are clear. The mastoid air cells are well-aerated and clear. Visualized maxillofacial bones are unremarkable. XR/XR sinus <3V IMPRESSION: Complete opacification of right maxillary sinus from inflammatory changes.
== END 2023-03-18 14:09 | disposition home or self-care (01) ==
LOC: HO.XRAY 14:08
PROVIDERS: PCP Internal Medicine; Visit Provider Nurse Practitioner Family
DX: J34.89 Other specified disorders of nose and nasal sinuses (principal); Z86.73 Personal history of transient ischemic attack (TIA), and cerebral infarction without residual deficits; Z51.81 Encounter for therapeutic drug level monitoring; Z79.01 Long term (current) use of anticoagulants
CPT/HCPCS: 70210; 85610; 99211

== ENCOUNTER 2023-03-18 14:36 | Outpatient (AMB) | payer MEDICARE, SELFPAY ==
[2023-03-18 14:47] LABS: Prothrombin Time Whole Bld POC 25.9 sec (11.1-13.5); ~PT, ~INR - Anti Coag Clinic 2.2 (0.9-1.1)
--- NOTE | 2023-03-18 15:30 | MHC.OFFVISCO ---
Intake Intake Visit Reasons: Anticoagulation Allergies No Known Allergies Allergy (Verified 03/18/23 14:40) Medication List - Last Reconciled 03/18/23 by Le Hay RN amoxicillin 1,000 mg PO BID chlorhexidine gluconate 0.12% PO cyanocobalamin (vitamin B-12) 1,000 mcg PO DAILY metoprolol succinate ER 50 mg PO DAILY rosuvastatin 10 mg PO DAILY tadalafil 10 mg PO DAILY 90 days warfarin See Protocol 7.5MG X3DAYS/ 5MG X4DAYS; Nursing Note INR: 2.2 in therapeutic range Medications and supplements reviewed HR 60 REGULAR POSSIBLE RARE PVC B/P 130/80 COMPLETED ANTBX WEEK AGO FOR DENTAL PAIN , STILL HAS HEADACHE ONE SIDE AND DENTAL PAIN, JUST HAD XRAYS DONE, MD AND HIS DENTIST ARE AWARE - MAY START ANOTHER ANTIBIOTIC X RAY PENDING STATES HE HAS NOT HAD MUCH FLUIDS TO DRINL WHEN ASKED- BOTTLE WATER PROVIDED AND ENC FLUIDS Denies any signs and symptoms of bleeding or bruising or clotting. Bleeding, bruising, clotting discussed Nutritional guidance given- AVOID GREENS X 3 DAYS THEN RESUME USUAL DIET Dose: KEEP SAME 7.5MG X 1 DAY/ 5MG X 6 DAYS F/U INR: 2 WEEKS TO CALL IF START ANOTHER ANTBX GO TO ER WITH ANY STROKE SYMPTOMS OR IF SYMPTOMS DO NOT IMPROVE Patient verbalizes understanding of instructions given Anti-Coag Initial Assessment Social Hx Patient Tobacco Use Status: Never used Tobacco alcohol intake: current Alcohol intake frequency: a few times a month Coding Level of Care Code Est Patient Level 1 Diagnoses Current use of anticoagulant therapy Z79.01 Results AMB INR Fingerstick AMB INR Fingerstick 2.2 Last Edit by Le Hay RN on 03/18/23 14:46 MANUAL ENTRY NO INTERFACING Assessment & Plan Assessment & Plan (1) Current use of anticoagulant therapy: Code(s): Z79.01 - emt intermediate (current) use of anticoagulants Category: Medical
== END 2023-03-18 15:35 | disposition home or self-care (01) ==
LOC: HO.ACS 14:36
PROVIDERS: PCP Internal Medicine; Visit Provider Internal Medicine
DX: Z79.01 Long term (current) use of anticoagulants (principal)

== ENCOUNTER 2023-03-20 13:25 | Outpatient (AMB) | payer MEDICARE, SELFPAY ==
--- NOTE | 2023-03-20 13:33 | A.OFFVIS_ITS ---
Intake Vital Signs 03/20/23 13:35 Height 5 ft 11 in Weight 224 lb 13.944 oz BMI 31.4 BP 136/82 Blood Pressure Location Lt brachial Position Sitting Pulse 77 Intake Visit Reasons: 1 year follow up after echo Intake Note: 1 year follow-up after echo with ekg hearts doing well Allergies No Known Allergies Allergy (Verified 03/18/23 14:40) Medication List - Last Reconciled 03/20/23 by Cecil David MD amoxicillin-pot clavulanate 875-125 mg 1 tab PO BID chlorhexidine gluconate 0.12% PO cyanocobalamin (vitamin B-12) 1,000 mcg PO DAILY metoprolol succinate ER 50 mg PO DAILY rosuvastatin 10 mg PO DAILY tadalafil 10 mg PO DAILY 90 days warfarin See Protocol 7.5MG X3DAYS/ 5MG X4DAYS; HPI HPI Comments History of Present Illness Details Carter comes for follow-up. Patient says that he has been suffering from sinusitis. Otherwise he is doing well from cardiac perspective. His recent echocardiogram shows good mitral valve repair with early mild stenosis which is expected after posterior resection. His LV ejection fraction is normal with dilated LV cavity. He also has moderately dilated sinus of Valsalva which has remained stable. He denies any shortness of breath, orthopnea, PND. No recurrent CVA like symptoms. Tolerating warfarin therapy which is being followed by [facility]. [facility] Medical History Ascending aortic aneurysm CVA (cerebral vascular accident) Hypercholesterolemia Mitral valve regurgitation Surgical History H/O mitral valve repair History of umbilical hernia repair Hx of appendectomy Family History Father Liver cancer Mother Lung cancer Social History Housing: House Alcohol intake: current Alcohol intake frequency: a few times a month Patient Tobacco Use Status: Never used Tobacco e-Cigarette/Vaping Use: Never Used Second Hand Smoke Exposure: No service: No Current occupational status: retired Cognitive needs: No Hearing needs: No Vision needs: Yes Review of Systems Const Denies chills, Denies fatigue, Denies fever(s), Denies frequent falls, Denies weakness, Denies weight gain and Denies weight loss ENT Denies dizziness Card Denies chest pain, Denies leg edema, Denies lightheadedness, Denies palpitations, Denies dyspnea, Denies dyspnea on exertion, Denies orthopnea and Denies other (loss of consciousness) Resp Denies cough, Denies dyspnea and Denies dyspnea on exertion GI Denies hematochezia and Denies change in stool character Musc Denies abnormal gait, Denies muscle weakness, Denies numbness, Denies radiating pain into limb and Denies tingling Neuro Denies abnormal gait, Denies dizziness, Denies frequent falls, Denies numbness, Denies tingling and Denies weakness Endo Denies fatigue and Denies palpitations Physical Exam Vital Signs: Last Vital Signs Pulse 77 03/20/23 13:35 BP 136/82 03/20/23 13:35 BMI result Body Mass Index 31.4 Const General: cooperative, comfortable, no acute distress, alert and awake Nutritional Appearance: obese Orientation/consciousness: patient oriented x3 Limitations: no limitations Neck Neck: Yes trachea midline, Yes supple and Yes no JVD Resp Effort & Inspection: normal respiratory effort Auscultation: clear to auscultation bilaterally Cardio Jugular venous distension: no JVD Palpation: normal PMI Rate: regular rate Rhythm: regular rhythm Heart sounds: S1 normal heart sound present, S2 normal heart sound present, no click, no gallops, no murmurs and no rubs GI Auscultation: normal bowel sounds Skin General skin exam: no rashes or lesions noted Neuro General: patient oriented x3 and no focal motor deficits Extrem General: Yes no clubbing, cyanosis or edema Psych Appearance: grossly normal Office Procedures EKG Details: EKG shows normal sinus rhythm first-degree AV block otherwise normal EKG [id number], Complete Assessment & Plan Assessment & Plan (1) H/O mitral valve repair: Code(s): Z98.890 - Other specified postprocedural states Plan: Patient with prior mitral valve prolapse with significant mitral regurgitation status post repair which has worked well. Continue SBE prophylaxis as per ACC/[facility] guidelines. Continue monitor by echocardiogram on annual basis. No interventions required. He does have iatrogenic mild mitral stenosis which is expected after mitral valve repair and posterior leaflet restriction. (2) CVA (cerebral vascular accident): Comment: 2015, drooping of face, no weaness of arms Code(s): I63.9 - Cerebral infarction, unspecified Plan: CV of unclear etiology suspected to be embolic. No clinical evidence of atrial fibrillation. Continue warfarin therapy. Target INR between 2 and 3 being followed by [facility]. (3) Ascending aortic aneurysm: Comment: November 2020 sinus of Valsalva 4.6 cm, ascending aorta 3.7 cm, 02/2022 4.1 cm, May 2022 Code(s): I71.2 - Thoracic aortic aneurysm, without rupture Plan: Patient with moderate aortic root enlargement without any change in the size. Continue aggressive risk factor modification. Continue aggressive blood pressure control which is currently well optimized. Advised to avoid sudden strenuous isometric exercise. Will continue monitor by echocardiogram on a yearly basis. Will follow up in the clinic in 1 year's time, sooner p.r.n.. Thank you for allowing me to partake in his care Coding Level of Care Code Est Pt Level 4 (44230) Diagnoses H/O mitral valve repair Z98.890 CVA (cerebral vascular accident) I63.9 Ascending aortic aneurysm I71.2 CPT Codes EKG - CPT: 60021-[id number], Complete ([id number])
[2023-03-20 13:35] VITALS: BP 136/82; PULSE 77; BMI 31.4
== END 2023-03-20 13:53 | disposition home or self-care (01) ==
PROVIDERS: Visit Provider Internal Medicine Cardiovascular Disease
DX: Z98.890 Other specified postprocedural states (principal); I63.9 Cerebral infarction, unspecified; I71.20 Thoracic aortic aneurysm, without rupture, unspecified
CPT/HCPCS: 93010; 99214

== ENCOUNTER → 2023-03-20 13:25 | Outpatient (BNVA) | payer MEDICARE, SELFPAY | PROVIDERS: Visit Provider Internal Medicine Cardiovascular Disease | DX: I44.0 Atrioventricular block, first degree (principal); I71.20 Thoracic aortic aneurysm, without rupture, unspecified; I63.9 Cerebral infarction, unspecified; Z98.890 Other specified postprocedural states; Z79.01 Long term (current) use of anticoagulants | CPT/HCPCS: 93005; 99212 ==

== ENCOUNTER 2023-04-11 15:36 | Outpatient (AMB) | payer MEDICARE, SELFPAY ==
[2023-04-11 15:45] LABS: Prothrombin Time Whole Bld POC 24.8 sec (11.1-13.5); ~PT, ~INR - Anti Coag Clinic 2.1 (0.9-1.1)
--- NOTE | 2023-04-11 15:48 | MHC.OFFVISCO ---
Intake Intake Visit Reasons: Anticoagulation Allergies No Known Allergies Allergy (Verified 04/11/23 15:37) Medication List - Last Reconciled 04/11/23 by Michelle Mock RN amoxicillin-pot clavulanate 875-125 mg 1 tab PO BID chlorhexidine gluconate 0.12% PO cyanocobalamin (vitamin B-12) 1,000 mcg PO DAILY metoprolol succinate ER 50 mg PO DAILY rosuvastatin 10 mg PO DAILY tadalafil 10 mg PO DAILY 90 days warfarin See Protocol 7.5MG X3DAYS/ 5MG X4DAYS; Nursing Note Amb to [facility] feeling ok,sts he R/S from 04/01 as he was going on a hunting trip Medications and supplements reviewed, pt was on augmentin for right sided facial pain, wasn't sure if tooth or sinus, never called, gentle reminder to call with med changes especially antibiotics sts he also only took 1 a day vs twice a day, discussed need when on antibiotic to take as ordered for effectiveness and less chance of creating a super infection No other changes in health, diet, medications, or supplements Denies any unusual signs and symptoms of bruising, bleeding Denies any new Chest pain, SOB, or clotting INR: 2.1 in therapeutic range Nutritional guidance given: balance greens and reds in diet Dose: continue usual dosing; 7.5mg x 1 day and 5mg x 6 days F/U INR: 4 weeks as per pt request Patient verbalizes understanding of instructions given with accurate read back/ teach back of dosing Anti-Coag Initial Assessment Social Hx Patient Tobacco Use Status: Never used Tobacco alcohol intake: current Alcohol intake frequency: a few times a month Coding Level of Care Code Est Patient Level 1 Diagnoses Current use of anticoagulant therapy Z79.01 Time Spent (min) 15 Assessment & Plan Assessment & Plan (1) Current use of anticoagulant therapy: Code(s): Z79.01 - tint layer (current) use of anticoagulants Category: Medical
== END 2023-04-11 16:14 | disposition home or self-care (01) ==
LOC: HO.ACS 15:36
PROVIDERS: PCP Internal Medicine; Visit Provider Internal Medicine
DX: Z79.01 Long term (current) use of anticoagulants (principal)

== ENCOUNTER → 2023-04-11 15:36 | Outpatient (BNVA) | payer MEDICARE, SELFPAY | PROVIDERS: PCP Internal Medicine; Visit Provider Internal Medicine | DX: Z86.73 Personal history of transient ischemic attack (TIA), and cerebral infarction without residual deficits (principal); Z79.01 Long term (current) use of anticoagulants; Z51.81 Encounter for therapeutic drug level monitoring | CPT/HCPCS: 85610; 99211 ==

== ENCOUNTER → 2023-04-16 12:51 | Outpatient (REF) | payer MEDICARE, SELFPAY | LOC: HO.SL 12:51 | PROVIDERS: PCP Internal Medicine; Visit Provider Internal Medicine | DX: G47.10 Hypersomnia, unspecified (principal); R06.83 Snoring | CPT/HCPCS: 95806 ==

== ENCOUNTER → 2023-04-16 13:04 | Outpatient (BNV) | payer MEDICARE, SELFPAY | PROVIDERS: PCP Internal Medicine; Visit Provider Internal Medicine | DX: R06.83 Snoring (principal); G47.10 Hypersomnia, unspecified | CPT/HCPCS: 95806 ==

== ENCOUNTER 2023-04-22 08:09 | Outpatient (AMB) | payer MEDICARE, SELFPAY ==
[2023-04-22 08:12] VITALS: BP 128/70; PULSE 70; O2SAT 95; BMI 31.2
--- NOTE | 2023-04-22 08:12 | MHC.OFFVIS ---
Intake Vital Signs 04/22/23 08:12 Height 5 ft 11 in Weight 224 lb BMI 31.2 BP 128/70 Blood Pressure Location Lt brachial Position Sitting Pulse 70 Pulse Source Pulse Oximeter Pulse Oximetry (%) 95 Oxygen Delivery Method Room Air Intake Visit Reasons: L-WX-Hufwmdt/Fatigue/lvm Intake Note: Pt presents to the office today for a new patient visit for snoring/fatigue. Allergies No Known Allergies Allergy (Verified 04/22/23 08:14) HPI HPI Comments History of Present Illness Details 68 y/o male patient with prostate cancer and hx of CVA presents for new in-person visit for sleep consultation. Pt reports he can't get full night sleep, wakes up frequently, and having trouble go back to sleep. He only can sleep 3-4 hrs, wake up and then go back to sleep 5 -7 am. He snores, sleeps on his side due to gasping. Pt had a home sleep study, and it was inconculsive. Have you ever been diagnosed with a sleep disorder? No. Have you ever had a sleep study in the past? Yes, had home sleep study last week. Have you ever been treated for a sleep disorder? No. Do you take medications for a sleep disorder? No. Do you snore? Yes. Do you wake up gasping at night? No. Do you have episodes of apneas? No. If yes, are they witnessed? No. Do you have episodes of nocturnal chest pain or dyspnea? No. Do you have difficulty initiating sleep? No. Do you have difficulty maintaining sleep? Yes. Do you wake up tired? Yes. Do you have headaches upon awakening? No. Do you wake up with dry mouth or throat? Yes. Do you have GERD? Yes. Do you have nocturia? Yes. Do you have nocturnal leg cramps? Yes. Do you have symptoms of restless legs? Yes. Do you act out your dreams? No. Sleep hygiene questionnaire: What is your usual sleep routine? Usual bedtime is at 10 pm; Usual wake up time is at 3-5 am. Do you take naps? Yes, but not all the time. Is your sleep environment cool, dark, and quiet? Yes. Do you exercise? Walking daily. Do you take caffeine or other stimulants? Yes. Do you use electronics in bed? Yes, watches TV. What is your work schedule? N/A. Hypersomnolence questionnaire: Do you have daytime tiredness or fatigue? Yes. Do you easily fall asleep when inactive? No. Have you ever had episodes of sudden weakness? No. Have you ever had episodes of sudden weakness associated with strong emotions? No. PFSH Medical History Ascending aortic aneurysm CVA (cerebral vascular accident) Hypercholesterolemia Mitral valve regurgitation Surgical History H/O mitral valve repair History of umbilical hernia repair Hx of appendectomy Family History Father Liver cancer Mother Lung cancer Social History Housing: House Alcohol intake: current Alcohol intake frequency: a few times a month Patient Tobacco Use Status: Never used Tobacco e-Cigarette/Vaping Use: Never Used Second Hand Smoke Exposure: No service: No Current occupational status: retired Cognitive needs: No Hearing needs: No Vision needs: Yes Review of Systems Const All systems reviewed & are unremarkable except as noted in HPI and below ENT Reports Normal hearing present Neuro Reports Normal hearing present Physical Exam Vital Signs: Last Vital Signs Pulse 70 04/22/23 08:12 BP 128/70 04/22/23 08:12 Pulse Ox 95 04/22/23 08:12 Oxygen Delivery Method Room Air 04/22/23 08:12 BMI result Body Mass Index 31.2 Const General: cooperative and tired appearing Nutritional Appearance: obese Orientation/consciousness: patient oriented x3 Resp Effort & Inspection: normal respiratory effort and able to speak in complete sentences Neuro General: patient oriented x3, gait normal and moves all extremities Cranial nerves: Yes Bilaterally intact EOM present, Yes Normal facial strength present, Yes Midline tongue present, Yes Symmetric palate elevation present, Yes Normal hearing present and Yes Ability to bilaterally rotate head present Cognition (Neuro): normal cognition Gait exam (Neuro): Normal gait present Motor exam (neuro): 5/5 motor strength present throughout, Pronator motor function not present and no tremor noted Psych Appearance: grossly normal Mental Status: mental status grossly normal Speech and movement: Normal speech and movement present Affect: normal affect Attitude: cooperative Assessment & Plan Assessment & Plan (1) Hypersomnia: Code(s): G47.10 - Hypersomnia, unspecified (2) Fatigue: Code(s): R53.83 - Other fatigue (3) Snoring: Code(s): R06.83 - Snoring (4) H/O mitral valve repair: Code(s): Z98.890 - Other specified postprocedural states Plan Pt is advised to undergo in lab sleep study to assess for sleep apnea. Will f/u with pt after study to discuss results and appropriate treatment options. Sleep hygiene education provided. Advised patient to try Calm Sleep supplement. Pt to call with any worsening concerns or questions. Orders: Orders RT PSG in-lab sleep study Today G47.10 - Hypersomnia, unspecified, I63.9 - Cerebral infarction, unspecified, R06.83 - Snoring, R53.83 - Other fatigue, Z98.890 - Other specified postprocedural states Coding Level of Care Code New Pt Level 3 (50643) Diagnoses Hypersomnia G47.10 Fatigue R53.83 Snoring R06.83 H/O mitral valve repair Z98.890
== END 2023-04-22 08:43 | disposition home or self-care (01) ==
PROVIDERS: PCP Internal Medicine; Visit Provider Nurse Practitioner Family
DX: G47.10 Hypersomnia, unspecified (principal); R53.83 Other fatigue; R06.83 Snoring; Z98.890 Other specified postprocedural states
CPT/HCPCS: 99203; 99213

== ENCOUNTER → 2023-04-22 08:09 | Outpatient (BNVA) | payer MEDICARE, SELFPAY | PROVIDERS: PCP Internal Medicine; Visit Provider Nurse Practitioner Family | DX: G47.10 Hypersomnia, unspecified (principal); R06.83 Snoring; R53.83 Other fatigue; Z98.890 Other specified postprocedural states | CPT/HCPCS: 99202 ==

== ENCOUNTER 2023-05-09 12:23 | Outpatient (AMB) | payer MEDICARE, SELFPAY ==
[2023-05-09 12:29] LABS: Prothrombin Time Whole Bld POC 30.6 sec (11.1-13.5); ~PT, ~INR - Anti Coag Clinic 2.6 (0.9-1.1)
--- NOTE | 2023-05-09 12:33 | MHC.OFFVISCO ---
Intake Intake Visit Reasons: Anticoagulation Allergies No Known Allergies Allergy (Verified 05/09/23 12:23) Medication List - Last Reconciled 05/09/23 by eL Hay RN amoxicillin-pot clavulanate 875-125 mg 1 tab PO BID chlorhexidine gluconate 0.12% PO cyanocobalamin (vitamin B-12) 1,000 mcg PO DAILY metoprolol succinate ER 50 mg PO DAILY rosuvastatin 10 mg PO DAILY tadalafil 10 mg PO DAILY 90 days warfarin See Protocol 7.5MG X3DAYS/ 5MG X4DAYS; Nursing Note INR: 2.6 in therapeutic range Medications and supplements reviewed No changes in health, diet, medications, or supplements, Denies any signs and symptoms of bleeding or bruising or clotting. Bleeding, bruising, clotting discussed Nutritional guidance given Dose: 7.5mg x 1 day/ 5mg x 6 days F/U INR: 1 month Patient verbalizes understanding of instructions given Anti-Coag Initial Assessment Social Hx Patient Tobacco Use Status: Never used Tobacco alcohol intake: current Alcohol intake frequency: a few times a month Coding Level of Care Code Est Patient Level 1 Diagnoses Current use of anticoagulant therapy Z79.01 Assessment & Plan Assessment & Plan (1) Current use of anticoagulant therapy: Code(s): Z79.01 - terminal worker (current) use of anticoagulants Category: Medical
== END 2023-05-09 12:34 | disposition home or self-care (01) ==
LOC: HO.ACS 12:23
PROVIDERS: PCP Internal Medicine; Visit Provider Internal Medicine
DX: Z79.01 Long term (current) use of anticoagulants (principal)

== ENCOUNTER → 2023-05-09 12:23 | Outpatient (BNVA) | payer MEDICARE, SELFPAY | PROVIDERS: PCP Internal Medicine; Visit Provider Internal Medicine | DX: Z86.73 Personal history of transient ischemic attack (TIA), and cerebral infarction without residual deficits (principal); Z79.01 Long term (current) use of anticoagulants; Z51.81 Encounter for therapeutic drug level monitoring | CPT/HCPCS: 85610; 99211 ==

== ENCOUNTER → 2023-05-15 20:30 | Outpatient (REF) | payer MEDICARE, SELFPAY | LOC: HO.SL 20:30 | PROVIDERS: PCP Internal Medicine; Visit Provider Nurse Practitioner Family | DX: G47.10 Hypersomnia, unspecified (principal); R53.83 Other fatigue; R06.83 Snoring; Z98.890 Other specified postprocedural states; Z86.73 Personal history of transient ischemic attack (TIA), and cerebral infarction without residual deficits | CPT/HCPCS: 95810 ==

== ENCOUNTER → 2023-05-15 22:46 | Outpatient (BNV) | payer MEDICARE, SELFPAY | PROVIDERS: PCP Internal Medicine; Visit Provider Psychiatry & Neurology Neurology | DX: G47.10 Hypersomnia, unspecified (principal) | CPT/HCPCS: 95810 ==

== ENCOUNTER 2023-06-04 08:43 | Outpatient (REF) | payer MEDICARE, SELFPAY ==
[2023-06-04 10:50] LABS: Alanine Aminotransferase 15 U/L (0-40); Albumin Level 3.9 g/dL (3.5-5.0); Alkaline Phosphatase 51 U/L (39-117); Anion Gap 12 (12-20); Aspartate Amino Transferase 22 U/L (5-37); Bilirubin Total 0.6 mg/dL (0.0-1.0); Blood Urea Nitrogen 20 mg/dL (9-16); Calcium 9.1 mg/dL (8.4-10.2); Carbon Dioxide 26 mmol/L (22-29); Chloride 108 mmol/L (96-108); Cholesterol 156 mg/dL (<200); Estimated Glomerular Filt Rate > 60; Glucose Random 88 mg/dL (60-115); HDL Cholesterol 55 mg/dL (>40); LDL Cholesterol Calculated 88 mg/dL (<100); Potassium 4.8 mmol/L (3.3-5.1); Sodium 141 mmol/L (135-145); Total Protein 7.2 g/dL (6.5-8.0); Triglycerides 68 mg/dL (<150)
[2023-06-04 11:08] LABS: Prostate Specific Antigen < 0.10 ng/mL (<0.05-4.0)
[2023-06-10 14:05] LABS: Testosterone, Free 43.3 pg/mL (35.0-155.0); Testosterone, Total 274 ng/dL (250-1100)
== END 2023-06-04 08:44 | disposition home or self-care (01) ==
LOC: HO.LAB 08:43
PROVIDERS: Nurse Practitioner Family; PCP Internal Medicine; Visit Provider Internal Medicine
DX: E78.00 Pure hypercholesterolemia, unspecified (principal); C61 Malignant neoplasm of prostate; Z12.5 Encounter for screening for malignant neoplasm of prostate
CPT/HCPCS: 36415; 80053; 80061; 84153; 84402; 84403

== ENCOUNTER 2023-06-06 15:32 | Outpatient (AMB) | payer MEDICARE, SELFPAY ==
[2023-06-06 15:37] LABS: Prothrombin Time Whole Bld POC 19.8 sec (11.1-13.5); ~PT, ~INR - Anti Coag Clinic 1.7 (0.9-1.1)
--- NOTE | 2023-06-06 15:56 | MHC.OFFVISCO ---
Intake Intake Visit Reasons: Anticoagulation Allergies No Known Allergies Allergy (Verified 06/06/23 15:32) Medication List - Last Reconciled 06/06/23 by Le Hay RN chlorhexidine gluconate 0.12% PO cyanocobalamin (vitamin B-12) 1,000 mcg PO DAILY metoprolol succinate ER 50 mg PO DAILY rosuvastatin 10 mg PO DAILY tadalafil 10 mg PO DAILY 90 days warfarin See Protocol 7.5MG X3DAYS/ 5MG X4DAYS; Nursing Note INR 1.7?? out of therapeutic range Medications and supplements reviewed Patient status: walking more and had more greens than usual Medications or supplements: no changes Diet: good Denies any signs and symptoms of bleeding or clotting or unusual bruising Bleeding, bruising, clotting discussed Nutritional guidance given: avoid greens x 3 days, eat orange and reds to help raise the INR -review food list weekly Dose: 7.5mg tonight(2 days this week) then resume usual dose 7.5mg x 1 day/ 5g x 6 days F/U INR Date: 2 weeks to have f/u with PCP regarding dental pain and eye watering ?? Patient verbalizing understanding of instructions given. Anti-Coag Initial Assessment Social Hx Patient Tobacco Use Status: Never used Tobacco alcohol intake: current Alcohol intake frequency: a few times a month Coding Level of Care Code Est Patient Level 1 Diagnoses Current use of anticoagulant therapy Z79.01 Results AMB INR Fingerstick AMB INR Fingerstick 1.7 Last Edit by Le Hay RN on 06/06/23 15:37 manual entry Assessment & Plan Assessment & Plan (1) Current use of anticoagulant therapy: Code(s): Z79.01 - group home (current) use of anticoagulants Category: Medical
== END 2023-06-06 16:00 | disposition home or self-care (01) ==
LOC: HO.ACS 15:32
PROVIDERS: PCP Internal Medicine; Visit Provider Internal Medicine
DX: Z79.01 Long term (current) use of anticoagulants (principal)

== ENCOUNTER → 2023-06-06 15:32 | Outpatient (BNVA) | payer MEDICARE, SELFPAY | PROVIDERS: PCP Internal Medicine; Visit Provider Internal Medicine | DX: Z86.73 Personal history of transient ischemic attack (TIA), and cerebral infarction without residual deficits (principal); Z51.81 Encounter for therapeutic drug level monitoring; Z79.01 Long term (current) use of anticoagulants | CPT/HCPCS: 85610; 99211 ==

== ENCOUNTER 2023-06-11 12:55 | Outpatient (AMB) | payer MEDICARE, SELFPAY ==
[2023-06-11 13:05] VITALS: BP 132/72; PULSE 65; O2SAT 98; BMI 32.8
--- NOTE | 2023-06-11 13:05 | MHC.PC.OV ---
Vital Signs 06/11/23 13:05 Height 5 ft 11 in Weight 235 lb BMI 32.8 BP 132/72 Blood Pressure Location Lt brachial Position Sitting Pulse 65 Pulse Source Pulse Oximeter Pulse Oximetry (%) 98 Oxygen Delivery Method Room Air Intake Visit Reasons: 4 motnh f/u Allergies No Known Allergies Allergy (Verified 06/11/23 13:05) Medication List - Last Reconciled 06/11/23 by Freya Zarco MD chlorhexidine gluconate 0.12% PO cyanocobalamin (vitamin B-12) 1,000 mcg PO DAILY metoprolol succinate ER 50 mg PO DAILY rosuvastatin 20 mg PO DAILY tadalafil 10 mg PO DAILY 90 days warfarin See Protocol 7.5MG X3DAYS/ 5MG X4DAYS; Tobacco use date assessed: 06/11/23 Fall risk assessment: No Falls in past year Last assessed Fall Risk: 06/11/23 Dental Screening Dental Screen Date: 06/11/23 Did you have a dental visit in the last 12 months?: Yes Did you have a dental problem in the last 6 months where you did not have access to dental care?: No Was dental information given to patient?: Patient has dentist HPI 4 motnh f/u HPI Details 68-year-old obese male with a history of prostate cancer DVT hypercholesterolemia history of mitral valve repair, CVA coming in for follow-up last seen in February for sinus problems. Review of the notes in April 2023 had a sleep study results showing no evidence of sleep apnea AHI of 3 per hour. Patient also has seen Cardiology for follow-up good mitral valve repair with early mild stenosis LV ejection fraction is normal dilated left ventricular cavity ascending aortic aneurysm May 2022 last tested. [facility] Medical History Ascending aortic aneurysm CVA (cerebral vascular accident) Hypercholesterolemia Mitral valve regurgitation Surgical History H/O mitral valve repair History of umbilical hernia repair Hx of appendectomy Family History Father Liver cancer Mother Lung cancer Social History Housing: House Alcohol intake: current Alcohol intake frequency: a few times a month Patient Tobacco Use Status: Never used Tobacco e-Cigarette/Vaping Use: Never Used Second Hand Smoke Exposure: No service: No Current occupational status: retired Cognitive needs: No Hearing needs: No Vision needs: Yes Questionnaire PHQ-9 Over the last 2 weeks, how often have you been bothered by any of the following problems? 1. Little interest or pleasure in doing things: more than half the days 2. Feeling down, depressed, or hopeless: more than half the days 3. Trouble falling or staying asleep, or sleeping too much: more than half the days 4. Feeling tired or having little energy: more than half the days 5. Poor appetite or overeating: not at all 6. Feeling bad about yourself - or that you are a failure or have let yourself or your family down: not at all 7. Trouble concentrating on things, such as reading the newspaper or watching television: not at all 8. Moving or speaking so slowly that other people could have noticed. Or the opposite - being so fidgety or restless that you have been moving around a lot more than usual: not at all 9. Thoughts that you would be better off or of hurting yourself in some way: not at all Total score: 8 Depression Screening Interpretation: Positive Depression Screening Done: Yes Source: Developed by Drs. Jorge Ribera, Otilia Davidson, Juan A Barboza and colleagues, with an educational lisha from [employer]. Thrive Questionnaire Date Thrive assessed: 06/11/23 I am a: Patient What is your living situation today?: I have a steady place to live Within the past 12 months, did the food you bought not last and you didn't have the money to get more?: Never true Within the past 12 months, did you worry whether your food would run out before you got money to buy more?: Never true Do you have trouble paying for medicines?: No Do you have trouble getting transportation to medical appointments?: No Do you have trouble paying your heating and electricity bill?: No Do you have trouble taking care of your child, family member or friend?: No Do you have trouble with day-to-day activities such as bathing, preparing meals, shopping, managing finances, etc.?: No Are you currently unemployed and looking for a job?: No Are you interested in more education?: No AUDIT C Alcohol Use Questionnaire (AUDIT-C) 1. How often do you have a drink containing alcohol?: 4 or more times a week 2. How many drinks containing alcohol do you have on a typical day when you are drinking?: 1 or 2 3. How often do you have six or more drinks on one occasion?: Never Total Score: 4 YEHUDA-7 AMB Questionnaire YEHUDA-7 Date YEHUDA - 7 assessed: 06/11/23 Feeling nervous, anxious, or on edge: 0 = Not at all Not being able to stop or control worryin = Not at all Worrying too much about different things: 0 = Not at all Trouble relaxin = Not at all Being so restless that it is hard to sit still: 0 = Not at all Becoming easily annoyed or irritable: 0 = Not at all Feeling afraid as if something awful might happen: 0 = Not at all Total YEHUDA-7 score (0-4 normal; 5-9 mild; 10-14 moderate; 15-21 severe): 0 Source: Developed by Drs. Jorge Ribera, Otilia Davidson, Juan A Barboza and colleagues, with an educational lisha from [employer]. Physical exam (Primary Care) Vital Signs: Last Vital Signs Pulse 65 06/11/23 13:05 BP 132/72 06/11/23 13:05 Pulse Ox 98 06/11/23 13:05 Oxygen Delivery Method Room Air 06/11/23 13:05 BMI result Body Mass Index 32.8 Tobacco/Smoking Status: Tobacco use Status Tobacco use date assessed 06/11/23 06/11/23 13:10 Patient Tobacco Use Status Never used Tobacco 06/11/23 13:10 e-Cigarette/Vaping Use Never Used 06/11/23 13:10 PHQ-9: PHQ-9 Score PHQ-9: Total score 8 06/11/23 13:10 Depression Screening Interpretation: Positive Thrive Assessment: Date of Thrive Assessment Date Thrive assessed 06/11/23 06/11/23 13:10 Const General: alert; No acute distress Eyes Conjunctivae: conjunctivae normal Resp Auscultation: clear to auscultation bilaterally Cardio Rate: regular rate Rhythm: regular rhythm GI Inspection: Yes normal to inspection Extrem General: Yes normal to inspection and No edema Assessment and Plan Assessment & Plan (1) Sinus congestion: Code(s): R09.81 - Nasal congestion Plan: Patient was treated with Augmentin. nasal rinse advised (2) Ascending aortic aneurysm: Comment: November 2020 sinus of Valsalva 4.6 cm, ascending aorta 3.7 cm, 02/2022 4.1 cm, May 2022 Code(s): I71.2 - Thoracic aortic aneurysm, without rupture Plan: Patient continues to be followed up by Cardiology (3) CVA (cerebral vascular accident): Comment: 2015, drooping of face, no weaness of arms Code(s): I63.9 - Cerebral infarction, unspecified Plan: Continue with anticoagulation (4) Hypercholesterolemia: Code(s): E78.00 - Pure hypercholesterolemia, unspecified Plan: Avoid fried foods, chicken skin, eggs, butter margarine, pastries and meat. Be it pork or beef they have a lot of cholesterol LDL goal of less than 70 and triglyceride of less than 150. Patient on rosuvastatin 10 mg once a day. adivsed increase to 20 mg and retest 3months (5) Prostate cancer: Comment: 08/2019 diagnosis - high-grade prostate cancer localized with brachytherapy and GnRH Code(s): C61 - Malignant neoplasm of prostate Plan: Continue to follow-up with urology (6) H/O mitral valve repair: Code(s): Z98.890 - Other specified postprocedural states Plan: Echocardiogram ordered by Cardiology Orders: Orders Lipid Panel 3 Months E78.00 - Pure hypercholesterolemia, unspecified, I63.9 - Cerebral infarction, unspecified Comprehensive Met. Panel 3 Months I63.9 - Cerebral infarction, unspecified Medications: Changed From rosuvastatin 10 mg PO DAILY 90 tabs 3RF E78.00 - Pure hypercholesterolemia, unspecified To rosuvastatin 20 mg PO DAILY 90 tabs 3RF E78.00 - Pure hypercholesterolemia, unspecified Coding Level of Care Code Est Pt Level 4 (49883) Diagnoses Sinus congestion R09.81 Ascending aortic aneurysm I71.2 CVA (cerebral vascular accident) I63.9 Hypercholesterolemia E78.00 Prostate cancer C61 H/O mitral valve repair Z98.890
== END 2023-06-11 13:56 | disposition home or self-care (01) ==
PROVIDERS: PCP Internal Medicine; Visit Provider Internal Medicine
DX: R09.81 Nasal congestion (principal); I71.20 Thoracic aortic aneurysm, without rupture, unspecified; C61 Malignant neoplasm of prostate; Z86.73 Personal history of transient ischemic attack (TIA), and cerebral infarction without residual deficits; E78.00 Pure hypercholesterolemia, unspecified; Z98.890 Other specified postprocedural states
CPT/HCPCS: 99214

== ENCOUNTER 2023-06-13 15:01 | Outpatient (REF) | payer MEDICARE, SELFPAY ==
[2023-06-17 13:19] LABS: Testosterone, Total 282 ng/dL (250-1100)
== END 2023-06-13 15:02 | disposition home or self-care (01) ==
LOC: HO.LAB 15:01
PROVIDERS: PCP Internal Medicine; Visit Provider Urology
DX: C61 Malignant neoplasm of prostate (principal); E29.1 Testicular hypofunction
CPT/HCPCS: 36415; 84403

== ENCOUNTER 2023-06-20 15:18 | Outpatient (AMB) | payer MEDICARE, SELFPAY ==
[2023-06-20 15:26] LABS: Prothrombin Time Whole Bld POC 27.9 sec (11.1-13.5); ~PT, ~INR - Anti Coag Clinic 2.3 (0.9-1.1)
--- NOTE | 2023-06-20 15:41 | MHC.OFFVISCO ---
Intake Intake Visit Reasons: Anticoagulation Allergies No Known Allergies Allergy (Verified 06/20/23 15:19) Medication List - Last Reconciled 06/20/23 by Le Hay, RN chlorhexidine gluconate 0.12% PO cyanocobalamin (vitamin B-12) 1,000 mcg PO DAILY metoprolol succinate ER 50 mg PO DAILY rosuvastatin 20 mg PO DAILY tadalafil 10 mg PO DAILY 90 days warfarin See Protocol 7.5MG X3DAYS/ 5MG X4DAYS; Nursing Note INR: 2.3 in therapeutic range Medications and supplements reviewed Rosuvastatin increased to 20mg daily from 10mg 1 week ago- It can raise the INR explained to pt - he wants to increase his greens, leaving for [place] and wants to have INR checked after he returns, again it was explained that if he has any bruising eat greens, to call [facility] or PCP may need to have lab drawn, he stated he will have INR done when he gets back Denies any signs and symptoms of bleeding or bruising or clotting. Bleeding, bruising, clotting discussed Nutritional guidance given - increase weekly greens -strong greens Dose: 7.5mg x 1 day/ 5mg x 6 days F/U INR: 07/08/23 -refused sooner appt Patient verbalizes understanding of instructions given Anti-Coag Initial Assessment Social Hx Patient Tobacco Use Status: Never used Tobacco alcohol intake: current Alcohol intake frequency: a few times a month Coding Level of Care Code Est Patient Level 1 Diagnoses Current use of anticoagulant therapy Z79.01 Assessment & Plan Assessment & Plan (1) Current use of anticoagulant therapy: Code(s): Z79.01 - USP (current) use of anticoagulants Category: Medical
== END 2023-06-20 15:50 | disposition home or self-care (01) ==
LOC: HO.ACS 15:18
PROVIDERS: PCP Internal Medicine; Visit Provider Internal Medicine
DX: Z79.01 Long term (current) use of anticoagulants (principal)

== ENCOUNTER → 2023-06-20 15:18 | Outpatient (BNVA) | payer MEDICARE, SELFPAY | PROVIDERS: PCP Internal Medicine; Visit Provider Internal Medicine | DX: Z86.73 Personal history of transient ischemic attack (TIA), and cerebral infarction without residual deficits (principal); Z79.01 Long term (current) use of anticoagulants; Z51.81 Encounter for therapeutic drug level monitoring | CPT/HCPCS: 85610; 99211 ==

== ENCOUNTER 2023-06-23 14:23 | Outpatient (AMB) | payer MEDICARE, SELFPAY ==
--- NOTE | 2023-06-23 14:29 | A.OFFVIS_ITS ---
Intake Intake Visit Reasons: 6m/labs Intake Note: Patient presents today for follow up prostate cancer, erectile dysfunction, and labs PSA: 0.10 Testosterone: 282 Urology medications: tadalafil Blood Thinner: warfarin Power Saw Operator Required: No Accompanied by: Self / Same As Patient Allergies No Known Allergies Allergy (Verified 06/23/23 20:17) Medication List - Last Reconciled 06/23/23 by TOÑA Krishnamurthy chlorhexidine gluconate 0.12% PO cyanocobalamin (vitamin B-12) 1,000 mcg PO DAILY metoprolol succinate ER 50 mg PO DAILY rosuvastatin 20 mg PO DAILY tadalafil 10 mg PO .PRN 90 days warfarin See Protocol 7.5MG X3DAYS/ 5MG X4DAYS; HPI HPI Comments History of Present Illness Details Carter is a very pleasant 68-year-old male patient of Dr. Zarco. He has a past medical history of ascending aortic aneurysm, CVA, hypercholesteremia, mitral valve regurgitation, erectile dysfunction, and prostate cancer. He presents to the office today for follow-up of his prostate cancer and erectile dysfunction. Recent PSA and testosterone results reviewed with the patient today. Last labs PSA & Testosterone: 08/14 PSA <0.1, T 17, 12/14 <0.1, 06/17 <0.1, T 169, 12/15 <0.10, T 322, 06/18 <0.10, T 282 When asked patient reports to be doing and feeling well. He offers no issues or concerns at this time. He reports be happy with his current voiding parameters. He discusses compliance with 10 mg of tadalafil daily and finds this affective for his erectile dysfunction. He reports running out of refills and is requesting a refill today. He reports feeling noting adequate erections for penetration with tadalafil 10 mg as needed. He reports at times to have adequat e erections for penetration. When asked he denies urinary urgency, urinary frequency, incontinence, nocturia, hematuria, dysuria, foul smelling urine, changes to urinary stream, flank pain, fever, and or chills. He reports having followed up with sleep medicine for further assessment evaluation of snoring and fatigue. In review of patient's chart it appears study was ordered and performed. Results reviewed it does not appear patient with sleep apnea. However he has follow-up with sleep medicine in July for full review of results. He otherwise offers no other issues or concerns at this time. Prostate cancer: Grade group 4. XRT with hormones and brachy boost November 2019 Prostate cancer follow-up Prostate cancer was diagnosed 09/13/19 Dr Solano Diagnosis was reached by 09/13/19 needle biopsy, for elevated PSA, PSA at diagnosis 30, size at TRUS 30. The Inez grade is 8 4 cores from 12 5% 3+4 = 7,10% 3+4 = 7,5% 3+4 = 7, 20% , 4+4 = 8 Total 45%/1200% TNM Classification of Malignant Tumours (TNM) T1c. The D'Ajay (NCCN) risk category is High Risk (PSA > 20, Gl 8+, T3) Initial therapy - 12/12 XRT with boost brachy Imaging - bone scan negative, MRI organ contained Labs - 01/13 PSA < 0.1, T 17 Last GnRH 04/15 Therapeutic plan - laboratory surveillance [facility] Medical History Ascending aortic aneurysm CVA (cerebral vascular accident) Hypercholesterolemia Mitral valve regurgitation Surgical History H/O mitral valve repair History of umbilical hernia repair Hx of appendectomy Family History Father Liver cancer Mother Lung cancer Social History Housing: House Alcohol intake: current Alcohol intake frequency: a few times a month Patient Tobacco Use Status: Never used Tobacco e-Cigarette/Vaping Use: Never Used Second Hand Smoke Exposure: No service: No Current occupational status: retired Cognitive needs: No Hearing needs: No Vision needs: Yes Review of Systems Const Reports as per HPI Eyes Reports no additional complaints ENT Reports no additional complaints Card Reports as per HPI Resp Reports no additional complaints GI Reports no additional complaints Reports as per HPI Musc Reports no additional complaints Neuro Reports no additional complaints Psych Reports no additional complaints Endo Reports no additional complaints Alexis/Lymph Reports no additional complaints Aller/Immun Reports no additional complaints Physical Exam Const General: cooperative, healthy appearing, comfortable, no acute distress, well developed, alert and awake Orientation/consciousness: patient oriented x3 HEENT Head: Yes normal to inspection, Yes normocephalic and Yes atraumatic Ears: hearing grossly normal bilaterally Eyes General: appearance normal, both eyes and all related structures Neck Neck: Yes normal visual inspection and Yes trachea midline Chest Chest palpation & inspection: normal inspection of the chest Resp Effort & Inspection: normal respiratory effort and able to speak in complete sentences Cardio Rate: regular rate GI Inspection: Yes normal to inspection General: Yes no CVA tenderness Back/Spine/Pelvis Back: no CVA tenderness Skin General skin exam: no rashes or lesions noted Neuro General: patient oriented x3 Extrem General: Yes normal to inspection Psych Appearance: grossly normal and well kempt Mental Status: mental status grossly normal Speech and movement: Normal speech and movement present and Clear speech present Affect: normal affect Attitude: cooperative Thought process: Normal thought process present Thought content: Normal thought content present Insight: Good insight present (Psych) Judgement: Good judgement present (Psych) Results AMB Urinalysis, Automated UA Leukoctes 0 Max/uL Last Edit by [employer] on 06/23/23 14:47 UA Nitrite Negative Last Edit by [employer] on 06/23/23 14:47 UA Urobilinogen 0.2 mg/dL Last Edit by [employer] on 06/23/23 14:47 UA Protein 0 mg/dL Last Edit by [employer] on 06/23/23 14:47 UA pH 5.5 Last Edit by [employer] on 06/23/23 14:47 UA Blood 0 Ryder/uL Last Edit by [employer] on 06/23/23 14:47 UA Specific Fulton 1.030 Last Edit by [employer] on 06/23/23 14:47 UA Ketone Negative Last Edit by [employer] on 06/23/23 14:47 UA Bilirubin 0 mg/dL Last Edit by [employer] on 06/23/23 14:47 UA Glucose 0 mg/dL Last Edit by [employer] on 06/23/23 14:47 Results Reviewed Results Reviewed: Laboratory Last Values Urine pH (Auto) 5.5 06/23/23 14:37 Specific Fulton (Auto) 1.030 06/23/23 14:37 Urine Protein (Auto) 0 mg/dL 06/23/23 14:37 Glucose (UA)(Auto) 0 mg/dL 06/23/23 14:37 Urine Ketones (Auto) Negative 06/23/23 14:37 Urine Blood (Auto) 0 Ryder/uL 06/23/23 14:37 Urine Nitrite (Auto) Negative 06/23/23 14:37 Urine Bilirubin (Auto) 0 mg/dL 06/23/23 14:37 Urine Urobilinogen (Auto) 0.2 mg/dL 06/23/23 14:37 Leukocyte Esterase (Auto) 0 Max/uL 06/23/23 14:37 Assessment & Plan Assessment & Plan (1) Prostate cancer: Comment: 08/2019 diagnosis - high-grade prostate cancer localized with brachytherapy and GnRH Code(s): C61 - Malignant neoplasm of prostate (2) Fatigue: Code(s): R53.83 - Other fatigue (3) Snoring: Code(s): R06.83 - Snoring (4) Erectile dysfunction after prostate brachytherapy: Code(s): N52.35 - Erectile dysfunction following radiation therapy Plan In office urinalysis results reviewed with the patient today. Recent PSA and testosterone results reviewed with the patient today; as noted above; stable Continue Cialis 10 mg PRN sexual activity; refill or provided Patient is happy with current voiding parameters Patient denies any urological issues or concerns at this time. Continue to follow-up with sleep medicine as planned PSA and testosterone in 6 months Follow-up in 6 months with labs to be completed prior; or sooner with any issues, concerns, and or questions. Orders: Orders AMB Urinalysis Automated Today Z13.9 - Encounter for screening, unspecified Testosterone, Total 6 Months C61 - Malignant neoplasm of prostate Prostate Specific Antigen 6 Months C61 - Malignant neoplasm of prostate Medications: Changed From tadalafil 10 mg PO DAILY 90 days 90 tabs 1RF sexual activity N52.35 - Erectile dysfunction following radiation therapy To tadalafil 10 mg PO .PRN 90 days 90 tabs 1RF sexual activity N52.35 - Erectile dysfunction following radiation therapy Refilled tadalafil 10 mg PO .PRN 90 tabs 1RF sexual activity 90 days N52.35 - Erectile dysfunction following radiation therapy Patient Instructions: The patient had an opportunity to ask questions regarding the treatment plan. All questions were answered. Physical exam, labs, and imaging were discussed and reviewed in detail. As well as risks, benefits, and discussion of treatment choices. No major barriers to understanding were identified. The patient expressed understanding and agreement with the above treatment plan. The patient was made aware they should contact our office by phone for worsening of their current condition, the appearance of new symptoms, or with any questions or concerns. Compliance is encouraged with any medications and follow up testing that is ordered. It is a privilege to be allowed the opportunity to participate in? your urological care.? Again, if you have any questions or concerns If you have any questions or concerns please do not hesitate to contact me. The office is [phone]. This note is constructed using voice recognition software. While every effort has been made to ensure accuracy kettle worker errors may have been included. Yours sincerely, TOÑA Krishnamurthy Coding Level of Care Code Est Pt Level 3 (46449) Diagnoses Prostate cancer C61 Fatigue R53.83 Snoring R06.83 Erectile dysfunction after prostate brachytherapy N52.35
== END 2023-06-23 15:18 | disposition home or self-care (01) ==
PROVIDERS: PCP Internal Medicine; Visit Provider Nurse Practitioner Family
DX: C61 Malignant neoplasm of prostate (principal); R53.83 Other fatigue; R06.83 Snoring; N52.35 Erectile dysfunction following radiation therapy
CPT/HCPCS: 99213

== ENCOUNTER → 2023-06-23 14:23 | Outpatient (BNVA) | payer MEDICARE, SELFPAY | PROVIDERS: PCP Internal Medicine; Visit Provider Nurse Practitioner Family | DX: C61 Malignant neoplasm of prostate (principal); R53.83 Other fatigue; R06.83 Snoring; N52.35 Erectile dysfunction following radiation therapy | CPT/HCPCS: 81003; 99212 ==

== ENCOUNTER 2023-07-08 15:19 | Outpatient (AMB) | payer MEDICARE, SELFPAY ==
--- NOTE | 2023-07-08 15:34 | MHC.OFFVISCO ---
Intake Intake Visit Reasons: Anticoagulation Allergies No Known Allergies Allergy (Verified 07/08/23 15:21) Medication List - Last Reconciled 07/08/23 by Michelle Haskins RN chlorhexidine gluconate 0.12% PO cyanocobalamin (vitamin B-12) 1,000 mcg PO DAILY metoprolol succinate ER 50 mg PO DAILY rosuvastatin 20 mg PO DAILY tadalafil 10 mg PO .PRN 90 days warfarin See Protocol 7.5MG X3DAYS/ 5MG X4DAYS; Nursing Note INR: 2.8 in therapeutic range Medications and supplements reviewed No changes in health, diet, medications, or supplements, Denies any signs and symptoms of bleeding or bruising or clotting. Bleeding, bruising, clotting discussed Nutritional guidance given Dose: continue usual dose of 7.5 mg X1 day () and 5 mg all other days F/U INR: 1 month Patient verbalizes understanding of instructions given Anti-Coag Initial Assessment Social Hx Patient Tobacco Use Status: Never used Tobacco alcohol intake: current Alcohol intake frequency: a few times a month Coding Level of Care Code Est Patient Level 1 Diagnoses Current use of anticoagulant therapy Z79.01 Results AMB INR Fingerstick AMB INR Fingerstick 2.8 Last Edit by Michelle Haskins RN on 07/08/23 15:32 interface delay Assessment & Plan Assessment & Plan (1) Current use of anticoagulant therapy: Code(s): Z79.01 - residential (current) use of anticoagulants Category: Medical
[2023-07-09 08:12] LABS: Prothrombin Time Whole Bld POC 33.4 sec (11.1-13.5); ~PT, ~INR - Anti Coag Clinic 2.8 (0.9-1.1)
== END 2023-07-08 15:38 | disposition home or self-care (01) ==
LOC: HO.ACS 15:19
PROVIDERS: PCP Internal Medicine; Visit Provider Internal Medicine
DX: Z79.01 Long term (current) use of anticoagulants (principal)

== ENCOUNTER → 2023-07-08 15:19 | Outpatient (BNVA) | payer MEDICARE, SELFPAY | PROVIDERS: PCP Internal Medicine; Visit Provider Internal Medicine | DX: Z86.73 Personal history of transient ischemic attack (TIA), and cerebral infarction without residual deficits (principal); Z79.01 Long term (current) use of anticoagulants; Z51.81 Encounter for therapeutic drug level monitoring | CPT/HCPCS: 85610; 99211 ==

== ENCOUNTER 2023-07-31 10:40 | Outpatient (AMB) | payer MEDICARE, SELFPAY ==
--- NOTE | 2023-07-31 10:52 | MHC.OFFVIS ---
Intake Vital Signs 07/31/23 10:56 Height 5 ft 11 in Weight 235 lb 4 oz BMI 32.8 BP 130/80 Blood Pressure Location Lt brachial Position Sitting Pulse 58 Pulse Oximetry (%) 98 Oxygen Delivery Method Room Air Intake Visit Reasons: 3 mo f/u- Snoring-LVM Intake Note: Patient presents for 3 months f/u. Allergies No Known Allergies Allergy (Verified 08/04/23 13:55) HPI HPI Comments History of Present Illness Details 68 y/o male patient presents for follow up of sleep study. The PSG sleep study result reviewed. There was no evidence of sleep apnea or sleep related movement disorder in this study. AHI was less than 3/hr and oxygen niecy was 87%. Frequent PVCs were noted. Pt reports he can sleep 5-6 hrs, he wakes up 4-5 am for 37 years and he can't sleep later than 5 am. He retired, wants to sleep longer but still wakes up same time to go bathroom. [facility] Medical History Ascending aortic aneurysm CVA (cerebral vascular accident) Hypercholesterolemia Mitral valve regurgitation Surgical History H/O mitral valve repair History of umbilical hernia repair Hx of appendectomy Family History Father Liver cancer Mother Lung cancer Social History Housing: House Alcohol intake: current Alcohol intake frequency: a few times a month Patient Tobacco Use Status: Never used Tobacco e-Cigarette/Vaping Use: Never Used Second Hand Smoke Exposure: No service: No Current occupational status: retired Cognitive needs: No Hearing needs: No Vision needs: Yes Review of Systems Const All systems reviewed & are unremarkable except as noted in HPI and below ENT Reports Normal hearing present Neuro Reports Normal hearing present Physical Exam Vital Signs: Last Vital Signs Pulse 58 07/31/23 10:56 BP 130/80 07/31/23 10:56 Pulse Ox 98 07/31/23 10:56 Oxygen Delivery Method Room Air 07/31/23 10:56 BMI result Body Mass Index 32.8 Const General: cooperative Nutritional Appearance: obese Orientation/consciousness: patient oriented x3 Resp Effort & Inspection: normal respiratory effort and able to speak in complete sentences Neuro General: patient oriented x3, gait normal and moves all extremities Cranial nerves: Yes Bilaterally intact EOM present, Yes Normal facial strength present, Yes Midline tongue present, Yes Symmetric palate elevation present, Yes Normal hearing present and Yes Ability to bilaterally rotate head present Cognition (Neuro): normal cognition Gait exam (Neuro): Normal gait present Motor exam (neuro): 5/5 motor strength present throughout, Pronator motor function not present and no tremor noted Psych Appearance: grossly normal Mental Status: mental status grossly normal Speech and movement: Normal speech and movement present Affect: normal affect Attitude: cooperative Assessment & Plan Assessment & Plan (1) Hypersomnia: Code(s): G47.10 - Hypersomnia, unspecified (2) Fatigue: Code(s): R53.83 - Other fatigue (3) Snoring: Code(s): R06.83 - Snoring Plan Continue to practice sleep hygiene. Advised patient to try Calm Sleep supplement. Encouraged patient to increase physical activities, daily exercise. Wt reduction advised. Pt to call with any worsening concerns or questions. Coding Level of Care Code Est Pt Level 3 (28165) Diagnoses Hypersomnia G47.10 Fatigue R53.83 Snoring R06.83
[2023-07-31 10:56] VITALS: BP 130/80; PULSE 58; O2SAT 98; BMI 32.8
== END 2023-07-31 11:14 | disposition home or self-care (01) ==
PROVIDERS: PCP Internal Medicine; Visit Provider Nurse Practitioner Family
DX: G47.10 Hypersomnia, unspecified (principal); R53.83 Other fatigue; R06.83 Snoring
CPT/HCPCS: 99213

== ENCOUNTER → 2023-07-31 10:43 | Outpatient (BNVA) | payer MEDICARE, SELFPAY | PROVIDERS: PCP Internal Medicine; Visit Provider Nurse Practitioner Family | DX: G47.10 Hypersomnia, unspecified (principal); R53.83 Other fatigue; R06.83 Snoring | CPT/HCPCS: 99212 ==

== ENCOUNTER 2023-08-04 13:54 | Outpatient (AMB) | payer MEDICARE, SELFPAY ==
[2023-08-04 14:02] LABS: Prothrombin Time Whole Bld POC 30.7 sec (11.1-13.5); ~PT, ~INR - Anti Coag Clinic 2.6 (0.9-1.1)
--- NOTE | 2023-08-04 14:05 | MHC.OFFVISCO ---
Intake Intake Visit Reasons: Anticoagulation Allergies No Known Allergies Allergy (Verified 08/04/23 13:55) Nursing Note INR: 2.6 in therapeutic range of 2-3 Medications and supplements reviewed, no changes No changes in health, diet, medications, or supplements, Denies any signs and symptoms of bleeding or bruising or clotting. Bleeding, bruising, clotting discussed Nutritional guidance given, cont to balance reds and greens Dose: cont usual dose of 5mg X6 days and 7.5mg X1 day F/U INR: 1 month Patient verbalizes understanding of instructions given Anti-Coag Initial Assessment Social Hx Patient Tobacco Use Status: Never used Tobacco alcohol intake: current Alcohol intake frequency: a few times a month Coding Level of Care Code Est Patient Level 1 Diagnoses Current use of anticoagulant therapy Z79.01 Assessment & Plan Assessment & Plan (1) Current use of anticoagulant therapy: Code(s): Z79.01 - care home (current) use of anticoagulants Category: Medical
== END 2023-08-04 14:08 | disposition home or self-care (01) ==
LOC: HO.ACS 13:54
PROVIDERS: PCP Internal Medicine; Visit Provider Internal Medicine
DX: Z79.01 Long term (current) use of anticoagulants (principal)

== ENCOUNTER → 2023-08-04 13:54 | Outpatient (BNVA) | payer MEDICARE, SELFPAY | PROVIDERS: PCP Internal Medicine; Visit Provider Internal Medicine | DX: Z86.73 Personal history of transient ischemic attack (TIA), and cerebral infarction without residual deficits (principal); Z79.01 Long term (current) use of anticoagulants; Z51.81 Encounter for therapeutic drug level monitoring | CPT/HCPCS: 85610; 99211 ==

== ENCOUNTER 2023-09-02 07:58 | Outpatient (REF) | payer MEDICARE, SELFPAY ==
[2023-09-02 09:48] LABS: Alanine Aminotransferase 16 U/L (0-40); Alkaline Phosphatase 49 U/L (39-117); Anion Gap 11 (12-20); Aspartate Amino Transferase 20 U/L (5-37); Bilirubin Total 0.5 mg/dL (0.0-1.0); Blood Urea Nitrogen 18 mg/dL (9-16); Carbon Dioxide 28 mmol/L (22-29); Chloride 106 mmol/L (96-108); Cholesterol 131 mg/dL (<200); Estimated Glomerular Filt Rate > 60; Glucose Random 94 mg/dL (60-115); HDL Cholesterol 45 mg/dL (>40); LDL Cholesterol Calculated 76 mg/dL (<100); Potassium 4.4 mmol/L (3.3-5.1); Sodium 141 mmol/L (135-145); Total Protein 7.1 g/dL (6.5-8.0); Triglycerides 53 mg/dL (<150)
== END 2023-09-02 07:59 | disposition home or self-care (01) ==
LOC: HO.LAB 07:58
PROVIDERS: PCP Internal Medicine; Visit Provider Internal Medicine
DX: E78.00 Pure hypercholesterolemia, unspecified (principal); Z51.81 Encounter for therapeutic drug level monitoring; Z79.01 Long term (current) use of anticoagulants; Z86.73 Personal history of transient ischemic attack (TIA), and cerebral infarction without residual deficits
CPT/HCPCS: 36415; 80053; 80061; 85610; 99211

== ENCOUNTER 2023-09-02 08:03 | Outpatient (AMB) | payer MEDICARE, SELFPAY ==
--- NOTE | 2023-09-02 08:27 | MHC.OFFVISCO ---
Intake Intake Visit Reasons: Anticoagulation Allergies No Known Allergies Allergy (Verified 09/02/23 08:22) Medication List - Last Reconciled 09/02/23 by Linda Caruso RN chlorhexidine gluconate 0.12% PO cyanocobalamin (vitamin B-12) 1,000 mcg PO DAILY metoprolol succinate ER 50 mg PO DAILY rosuvastatin 20 mg PO DAILY tadalafil 10 mg PO .PRN 90 days warfarin See Protocol 7.5MG X3DAYS/ 5MG X4DAYS; Nursing Note INR 3.5-? out of therapeutic range of 2-3 Medications and supplements reviewed Patient status: no c.o, had labs today Medications or supplements: no changes Diet: same, had dark albertina Denies any signs and symptoms of bleeding or clotting or unusual bruising Bleeding, bruising, clotting discussed Nutritional guidance given: eat greens for 2 days, no reds for 2 days Dose: 2.5mg today then cont 5mg x 6, 7.5mg x 1 F/U INR Date : 2 weeks? Patient verbalizing understanding of instructions given. Anti-Coag Initial Assessment Social Hx Patient Tobacco Use Status: Never used Tobacco alcohol intake: current Alcohol intake frequency: a few times a month Coding Level of Care Code Est Patient Level 1 Diagnoses Current use of anticoagulant therapy Z79.01 Assessment & Plan Assessment & Plan (1) Current use of anticoagulant therapy: Code(s): Z79.01 - FDC (current) use of anticoagulants Category: Medical
[2023-09-02 08:28] LABS: Prothrombin Time Whole Bld POC 41.8 sec (11.1-13.5); ~PT, ~INR - Anti Coag Clinic 3.5 (0.9-1.1)
== END 2023-09-02 08:32 | disposition home or self-care (01) ==
LOC: HO.ACS 08:03
PROVIDERS: PCP Internal Medicine; Visit Provider Internal Medicine
DX: Z79.01 Long term (current) use of anticoagulants (principal)

== ENCOUNTER 2023-09-11 15:19 | Outpatient (AMB) | payer MEDICARE, SELFPAY ==
[2023-09-11 15:27] VITALS: BP 136/72; PULSE 62; O2SAT 95; BMI 32.6
--- NOTE | 2023-09-11 15:27 | MHC.PC.OV ---
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 Last seen in May 2023. Patient is up-to-date with colonoscopy March 2019 last echocardiogram was done March 2022 with an aortic root of 4.1 cm but this is followed up by Cardiology. Patient has hypersomnia and was referred to Neurology advised sleep hygiene encourage physical activity weight reduction patient also has followed up with Urology seen in May 2023 continuing surveillance. Patient relates to me that he has been going I skating and has fallen more than twice and now complains of right flank pain but states that is getting better patient denies having any fractures and still has the pain. Discussed with the patient that with him on the anticoagulation that it is not advisable for him to go for skating or any contact sports as there is risk of bleeding. Patient is a little bit upset with this. PFSH Medical History Ascending aortic aneurysm CVA (cerebral vascular accident) Hypercholesterolemia Mitral valve regurgitation Surgical History H/O mitral valve repair History of umbilical hernia repair Hx of appendectomy Family History Father Liver cancer Mother Lung cancer Social History Housing: House Alcohol intake: current Alcohol intake frequency: a few times a month Patient Tobacco Use Status: Never used Tobacco e-Cigarette/Vaping Use: Never Used Second Hand Smoke Exposure: No service: No Current occupational status: retired Cognitive needs: No Hearing needs: No Vision needs: Yes Questionnaire Thrive Questionnaire Date Thrive assessed: 09/11/23 I am a: Patient What is your living situation today?: I have a steady place to live Within the past 12 months, did the food you bought not last and you didn't have the money to get more?: Never true Within the past 12 months, did you worry whether your food would run out before you got money to buy more?: Never true Do you have trouble paying for medicines?: No Do you have trouble getting transportation to medical appointments?: No Do you have trouble paying your heating and electricity bill?: No Do you have trouble taking care of your child, family member or friend?: No Do you have trouble with day-to-day activities such as bathing, preparing meals, shopping, managing finances, etc.?: No Are you currently unemployed and looking for a job?: No Are you interested in more education?: No Please select the resources that you would like help with: None Currently or been in a relationship where the following occur: no concerns reported THRIVE Score: 0 AUDIT C Alcohol Use Questionnaire (AUDIT-C) 1. How often do you have a drink containing alcohol?: 4 or more times a week 2. How many drinks containing alcohol do you have on a typical day when you are drinking?: 1 or 2 3. How often do you have six or more drinks on one occasion?: Never Total Score: 4 YEHUDA-7 AMB Questionnaire YEHUDA-7 Date YEUHDA - 7 assessed: 06/11/23 Source: Developed by Drs. Jorge Ribera, Otilia Davidson, Juan A Barboza and colleagues, with an educational lisha from [employer]. Physical exam (Primary Care) Vital Signs: Last Vital Signs Pulse 62 09/11/23 15:27 BP 136/72 09/11/23 15:27 Pulse Ox 95 09/11/23 15:27 Oxygen Delivery Method Room Air 09/11/23 15:27 BMI result Body Mass Index 32.6 Tobacco/Smoking Status: Tobacco use Status Tobacco use date assessed 09/11/23 09/11/23 15:28 Patient Tobacco Use Status Never used Tobacco 09/11/23 15:28 e-Cigarette/Vaping Use Never Used 09/11/23 15:28 Thrive Assessment: Date of Thrive Assessment Date Thrive assessed 09/11/23 09/11/23 15:28 Currently or been in a relationship where the following occur: no concerns reported Const General: alert; No acute distress Eyes Conjunctivae: conjunctivae normal Resp Auscultation: clear to auscultation bilaterally Cardio Rate: regular rate Rhythm: regular rhythm GI Inspection: Yes normal to inspection Extrem General: Yes normal to inspection and No edema Assessment and Plan Assessment & Plan (1) Prostate cancer: Comment: 08/2019 diagnosis - high-grade prostate cancer localized with brachytherapy and GnRH Code(s): C61 - Malignant neoplasm of prostate Plan: Continue to follow-up with urology on Cialis 10 mg once a day (2) Hypercholesterolemia: Code(s): E78.00 - Pure hypercholesterolemia, unspecified Plan: Avoid fried foods, chicken skin, eggs, butter margarine, pastries and meat. Be it pork or beef they have a lot of cholesterol LDL goal of less than 70 and triglyceride of less than 150. Patient on rosuvastatin 20 mg once a day August 2023 LDL down to 76 (3) CVA (cerebral vascular accident): Comment: 2015, drooping of face, no weaness of arms Code(s): I63.9 - Cerebral infarction, unspecified Plan: Control the cholesterol, weight, blood pressure, presently on anticoagulation (4) Ascending aortic aneurysm: Comment: November 2020 sinus of Valsalva 4.6 cm, ascending aorta 3.7 cm, 02/2022 4.1 cm, 02/2023 4.5 cm Code(s): I71.2 - Thoracic aortic aneurysm, without rupture Plan: 02/2023 last note that I have on testing, this is being followed up by Cardiovascular vascular Orders: Orders Complete Blood Count Auto Diff 5 Months C61 - Malignant neoplasm of prostate Prostate Specific Antigen Scr 5 Months C61 - Malignant neoplasm of prostate Comprehensive Met. Panel 5 Months C61 - Malignant neoplasm of prostate Free T4 (Free Thyroxine) 5 Months C61 - Malignant neoplasm of prostate Thyroid Stimulating Hormone 5 Months C61 - Malignant neoplasm of prostate Lipid Panel 5 Months C61 - Malignant neoplasm of prostate, E78.00 - Pure hypercholesterolemia, unspecified Vitamin B12 and Folate 5 Months C61 - Malignant neoplasm of prostate Coding Level of Care Code Est Pt Level 4 (64559) Diagnoses Prostate cancer C61 Hypercholesterolemia E78.00 CVA (cerebral vascular accident) I63.9 Ascending aortic aneurysm I71.2
== END 2023-09-11 15:54 | disposition home or self-care (01) ==
PROVIDERS: PCP Internal Medicine; Visit Provider Internal Medicine
DX: C61 Malignant neoplasm of prostate (principal); Z86.73 Personal history of transient ischemic attack (TIA), and cerebral infarction without residual deficits; I71.20 Thoracic aortic aneurysm, without rupture, unspecified; E78.00 Pure hypercholesterolemia, unspecified
CPT/HCPCS: 99214

== ENCOUNTER 2023-09-16 15:43 | Outpatient (AMB) | payer MEDICARE, SELFPAY ==
[2023-09-16 15:58] LABS: Prothrombin Time Whole Bld POC 33.5 sec (11.1-13.5); ~PT, ~INR - Anti Coag Clinic 2.8 (0.9-1.1)
--- NOTE | 2023-09-16 16:03 | MHC.OFFVISCO ---
Intake Intake Visit Reasons: Anticoagulation Allergies No Known Allergies Allergy (Verified 09/16/23 15:52) Medication List - Last Reconciled 09/16/23 by Le Hay RN chlorhexidine gluconate 0.12% PO cyanocobalamin (vitamin B-12) 1,000 mcg PO DAILY metoprolol succinate ER 50 mg PO DAILY rosuvastatin 20 mg PO DAILY tadalafil 10 mg PO .PRN 90 days warfarin See Protocol 7.5MG X3DAYS/ 5MG X4DAYS; Nursing Note INR: 2.8 in therapeutic range Medications and supplements reviewed No changes in health, diet, medications, or supplements, Denies any signs and symptoms of bleeding or bruising or clotting. Bleeding, bruising, clotting discussed Nutritional guidance given - review food list weekly, eat a mix of fruits and vegetables, cooked greens lower your INR more than raw Dose: keep same 7.5mg x 1 day/ 5mg x 6 days F/U INR: 4 weeks Patient verbalizes understanding of instructions given Anti-Coag Initial Assessment Social Hx Patient Tobacco Use Status: Never used Tobacco alcohol intake: current Alcohol intake frequency: a few times a month Coding Level of Care Code Est Patient Level 1 Diagnoses Current use of anticoagulant therapy Z79.01 Assessment & Plan Assessment & Plan (1) Current use of anticoagulant therapy: Code(s): Z79.01 - manager terminal (current) use of anticoagulants Category: Medical
== END 2023-09-16 16:05 | disposition home or self-care (01) ==
LOC: HO.ACS 15:43
PROVIDERS: PCP Internal Medicine; Visit Provider Internal Medicine
DX: Z79.01 Long term (current) use of anticoagulants (principal)

== ENCOUNTER → 2023-09-16 15:43 | Outpatient (BNVA) | payer MEDICARE, SELFPAY | PROVIDERS: PCP Internal Medicine; Visit Provider Internal Medicine | DX: Z86.73 Personal history of transient ischemic attack (TIA), and cerebral infarction without residual deficits (principal); Z51.81 Encounter for therapeutic drug level monitoring; Z79.01 Long term (current) use of anticoagulants | CPT/HCPCS: 85610; 99211 ==

== ENCOUNTER 2023-10-13 15:37 | Outpatient (AMB) | payer MEDICARE, SELFPAY ==
[2023-10-13 15:43] LABS: Prothrombin Time Whole Bld POC 30.4 sec (11.1-13.5); ~PT, ~INR - Anti Coag Clinic 2.5 (0.9-1.1)
--- NOTE | 2023-10-13 15:47 | MHC.OFFVISCO ---
Intake Intake Visit Reasons: Anticoagulation Allergies No Known Allergies Allergy (Verified 10/13/23 15:38) Medication List - Last Reconciled 10/13/23 by Michelle Mock, RN chlorhexidine gluconate 0.12% PO cyanocobalamin (vitamin B-12) 1,000 mcg PO DAILY metoprolol succinate ER 50 mg PO DAILY rosuvastatin 20 mg PO DAILY tadalafil 10 mg PO .PRN 90 days warfarin See Protocol 7.5MG X3DAYS/ 5MG X4DAYS; Nursing Note Amb to ACS feeling well Medications and supplements reviewed No changes in health, diet, medications, or supplements, Denies any unusual signs and symptoms of bleeding, bruising, or clotting. INR 2.5 in therapeutic range Dose: continue usual dosing 7.5mg on and 5mg all other days balance greens and reds in diet and be consistent F/U INR: 1 month Patient verbalizes understanding of instructions given Anti-Coag Initial Assessment Social Hx Patient Tobacco Use Status: Never used Tobacco alcohol intake: current Alcohol intake frequency: a few times a month Coding Level of Care Code Est Patient Level 1 Diagnoses Current use of anticoagulant therapy Z79.01 Time Spent (min) 15 Assessment & Plan Assessment & Plan (1) Current use of anticoagulant therapy: Code(s): Z79.01 - terminal computer operator (current) use of anticoagulants Category: Medical
== END 2023-10-13 15:53 | disposition home or self-care (01) ==
LOC: HO.ACS 15:37
PROVIDERS: PCP Internal Medicine; Visit Provider Internal Medicine
DX: Z79.01 Long term (current) use of anticoagulants (principal)

== ENCOUNTER → 2023-10-13 15:37 | Outpatient (BNVA) | payer MEDICARE, SELFPAY | PROVIDERS: PCP Internal Medicine; Visit Provider Internal Medicine | DX: Z86.73 Personal history of transient ischemic attack (TIA), and cerebral infarction without residual deficits (principal); Z79.01 Long term (current) use of anticoagulants; Z51.81 Encounter for therapeutic drug level monitoring | CPT/HCPCS: 85610; 99211 ==

== ENCOUNTER 2023-11-13 15:39 | Outpatient (AMB) | payer MEDICARE, SELFPAY ==
[2023-11-13 15:45] LABS: Prothrombin Time Whole Bld POC 26.2 sec (11.1-13.5); ~PT, ~INR - Anti Coag Clinic 2.2 (0.9-1.1)
--- NOTE | 2023-11-13 15:52 | MHC.OFFVISCO ---
Intake Intake Visit Reasons: Anticoagulation Allergies No Known Allergies Allergy (Verified 11/13/23 15:40) Medication List - Last Reconciled 11/13/23 by Gissel Kaur RN chlorhexidine gluconate 0.12% PO cyanocobalamin (vitamin B-12) 1,000 mcg PO DAILY metoprolol succinate ER 50 mg PO DAILY rosuvastatin 20 mg PO DAILY tadalafil 10 mg PO .PRN 90 days warfarin See Protocol 7.5MG X3DAYS/ 5MG X4DAYS; Nursing Note NO CP,SOB,DIET/MED CHANGES,FALLS OR SX OF BLEEDING. CONTINUE PRESENT DOSE AND FOLLOW-UP IN 5 WEEKS. GOOD UNDERSTANDING OF DOSING INSTR. Anti-Coag Initial Assessment Social Hx Patient Tobacco Use Status: Never used Tobacco alcohol intake: current Alcohol intake frequency: a few times a month Coding Level of Care Code Est Patient Level 1 Diagnoses Current use of anticoagulant therapy Z79.01 Assessment & Plan Assessment & Plan (1) Current use of anticoagulant therapy: Code(s): Z79.01 - correction (current) use of anticoagulants Category: Medical
== END 2023-11-13 15:53 | disposition home or self-care (01) ==
LOC: HO.ACS 15:39
PROVIDERS: PCP Internal Medicine; Visit Provider Internal Medicine
DX: Z79.01 Long term (current) use of anticoagulants (principal)

== ENCOUNTER → 2023-11-13 15:39 | Outpatient (BNVA) | payer MEDICARE, SELFPAY | PROVIDERS: PCP Internal Medicine; Visit Provider Internal Medicine | DX: Z86.73 Personal history of transient ischemic attack (TIA), and cerebral infarction without residual deficits (principal); Z79.01 Long term (current) use of anticoagulants; Z51.81 Encounter for therapeutic drug level monitoring | CPT/HCPCS: 85610; 99211 ==

== ENCOUNTER 2023-12-15 07:39 | Outpatient (REF) | payer MEDICARE, SELFPAY ==
[2023-12-15 10:32] LABS: Prostate Specific Antigen < 0.10 ng/mL (<0.05-4.0)
[2023-12-19 10:09] LABS: Testosterone, Total 278 ng/dL (250-1100)
== END 2023-12-15 07:40 | disposition home or self-care (01) ==
LOC: HO.LAB 07:39
PROVIDERS: PCP Internal Medicine; Visit Provider Nurse Practitioner Family
DX: C61 Malignant neoplasm of prostate (principal); Z12.5 Encounter for screening for malignant neoplasm of prostate
CPT/HCPCS: 36415; 84153; 84403

== ENCOUNTER 2023-12-18 15:45 | Outpatient (AMB) | payer MEDICARE, SELFPAY ==
--- NOTE | 2023-12-18 15:57 | MHC.OFFVISCO ---
Intake Intake Visit Reasons: Anticoagulation Allergies No Known Allergies Allergy (Verified 12/18/23 15:45) Medication List - Last Reconciled 12/18/23 by Le Hay RN chlorhexidine gluconate 0.12% PO cyanocobalamin (vitamin B-12) 1,000 mcg PO DAILY metoprolol succinate ER 50 mg PO DAILY rosuvastatin 20 mg PO DAILY tadalafil 10 mg PO .PRN 90 days warfarin See Protocol 7.5MG X3DAYS/ 5MG X4DAYS; Nursing Note INR: .2.2 in therapeutic range Medications and supplements reviewed No changes in health, diet, medications, or supplements, Denies any signs and symptoms of bleeding or bruising or clotting. Bleeding, bruising, clotting discussed Nutritional guidance given - EAT A MIX OF FRUITS AND VEGETABLES Dose: 7.5MG X 1 DAY/ 5MG X 6 DAYS F/U INR: 1 MONTH Patient verbalizes understanding of instructions given Anti-Coag Initial Assessment Social Hx Patient Tobacco Use Status: Never used Tobacco alcohol intake: current Alcohol intake frequency: a few times a month Questionnaires HAS-BLED Does the patient had uncontrolled Hypertension?: No Does the patient have renal disease?: No Does the patient have liver disease?: No Does the patient have a history of stroke?: Yes Has the patient had major bleeding or predisposition to bleeding?: Yes (aortic abd anuerysm) Does the patient have labile INRs?: No Is the patient over 65 years of age?: Yes Is the patient on medications that gives them a predisposition to bleeding?: Yes Does the patient use alcohol?: Yes HAS-BLED Score: 5 CHADSVASC Age: [age] Gender: Male Does the patient have a history of CHF?: No Does the patient have a history of Hypertension?: No Does the patient have a history of Stroke/TIA/Thromboembolism?: Yes Does the patient have a history of Vascular Disease (prior VA, PAD or aortic plaque)?: Yes (PFO< THORACID AORTIC ANEURYSM) Does the patient have a history of Diabetes?: No CHADS VACS Score: 4 Jonnie Prediction Score Rsk VTE Active Cancer: No Previous VTE, excluding superficial vein thrombosis: Yes Reduced mobility: No Already known Thrombophilic Condition: No With-in last month Trauma and/or Surgery: No Elderly 70 year or older: No Heart and/or Respiratory Failure: No Acute Myocardial infarction and/or Ischemic Stroke: Yes Acute Infection and/or Rheumatologic Disorder: No Obesity (BMI 30 or greater): No Ongoing Hormonal Treatment: No Score: 4 Jonnie Score less than 4; Low Risk of VTE Jonnie Score 4 or greater; High Risk of VTE Coding Level of Care Code Est Patient Level 1 Diagnoses Current use of anticoagulant therapy Z79.01 Results AMB INR Fingerstick AMB INR Fingerstick 2.2 Last Edit by Le Hay RN on 12/18/23 15:53 MANUAL ENTRY Assessment & Plan Assessment & Plan (1) Current use of anticoagulant therapy: Code(s): Z79.01 - snf (current) use of anticoagulants Category: Medical
[2023-12-18 16:01] LABS: ~PT, ~INR - Anti Coag Clinic 2.2 (0.9-1.1)
== END 2023-12-18 16:02 | disposition home or self-care (01) ==
LOC: HO.ACS 15:45
PROVIDERS: PCP Internal Medicine; Visit Provider Internal Medicine
DX: Z79.01 Long term (current) use of anticoagulants (principal)

== ENCOUNTER → 2023-12-18 15:45 | Outpatient (BNVA) | payer MEDICARE, SELFPAY | PROVIDERS: PCP Internal Medicine; Visit Provider Internal Medicine | DX: Z86.73 Personal history of transient ischemic attack (TIA), and cerebral infarction without residual deficits (principal); Z79.01 Long term (current) use of anticoagulants; Z51.81 Encounter for therapeutic drug level monitoring | CPT/HCPCS: 85610; 99211 ==

== ENCOUNTER 2023-12-22 14:41 | Outpatient (AMB) | payer MEDICARE, SELFPAY ==
--- NOTE | 2023-12-22 15:09 | MHC.OFFVIS ---
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 Zarco. He has a past medical history of ascending aortic aneurysm, CVA, hypercholesteremia, mitral valve regurgitation, erectile dysfunction, and prostate cancer. He presents to the office today for follow-up of his prostate cancer and erectile dysfunction. Recent PSA and testosterone results reviewed with the patient today. Last labs PSA & Testosterone: 08/14 PSA <0.1, T 17, 12/14 <0.1, 06/17 <0.1, T 169, 12/15 <0.10, T 322, 06/18 <0.10, T 282, 12/16 PSA <0.10 T 278 When asked patient reports to be doing and feeling well. He offers no issues or concerns at this time. He reports be happy with his current voiding parameters. He discusses compliance with 10 mg of tadalafil daily and finds this affective for his erectile dysfunction. He reports running out of refills and is requesting a refill today. He reports noting adequate erections for penetration with tadalafil 10 mg as needed. When asked he denies urinary urgency, urinary frequency, incontinence, nocturia, hematuria, dysuria, foul smelling urine, changes to urinary stream, flank pain, fever, and or chills. He otherwise offers no other issues or concerns at this time. Prostate cancer: Grade group 4. XRT with hormones and brachy boost November 2019 Prostate cancer follow-up Prostate cancer was diagnosed 09/13/19 Dr Solano Diagnosis was reached by 09/13/19 needle biopsy, for elevated PSA, PSA at diagnosis 30, size at TRUS 30. The Inez grade is 8 4 cores from 12 5% 3+4 = 7,10% 3+4 = 7,5% 3+4 = 7, 20% , 4+4 = 8 Total 45%/1200% TNM Classification of Malignant Tumours (TNM) T1c. The D'Ajay (NCCN) risk category is High Risk (PSA > 20, Gl 8+, T3) Initial therapy - 12/12 XRT with boost brachy Imaging - bone scan negative, MRI organ contained Labs - 01/13 PSA < 0.1, T 17 Last GnRH 04/15 Therapeutic plan - laboratory surveillance [facility] Medical History Ascending aortic aneurysm CVA (cerebral vascular accident) Hypercholesterolemia Mitral valve regurgitation Surgical History H/O mitral valve repair History of umbilical hernia repair Hx of appendectomy Family History Father Liver cancer Mother Lung cancer Social History Housing: House Alcohol intake: current Alcohol intake frequency: a few times a month Patient Tobacco Use Status: Never used Tobacco e-Cigarette/Vaping Use: Never Used Second Hand Smoke Exposure: No service: No Current occupational status: retired Cognitive needs: No Hearing needs: No Vision needs: Yes Review of Systems Const Reports as per HPI Eyes Reports no additional complaints ENT Reports no additional complaints Card Reports as per HPI Resp Reports no additional complaints GI Reports no additional complaints Reports as per HPI Musc Reports no additional complaints Neuro Reports no additional complaints Psych Reports no additional complaints Endo Reports no additional complaints Alexis/Lymph Reports no additional complaints Aller/Immun Reports no additional complaints Physical Exam Const General: cooperative, healthy appearing, comfortable, no acute distress, well developed, alert and awake Nutritional Appearance: overweight Orientation/consciousness: patient oriented x3 Limitations: no limitations HEENT Head: Yes normal to inspection, Yes normocephalic and Yes atraumatic Ears: hearing grossly normal bilaterally Eyes General: appearance normal, both eyes and all related structures Neck Neck: Yes normal visual inspection and Yes trachea midline Chest Chest palpation & inspection: normal inspection of the chest Resp Effort & Inspection: normal respiratory effort and able to speak in complete sentences Cardio Rate: regular rate GI Inspection: Yes normal to inspection General: Yes no CVA tenderness Back/Spine/Pelvis Back: no CVA tenderness Skin General skin exam: no rashes or lesions noted Neuro General: patient oriented x3 Extrem General: Yes normal to inspection Psych Appearance: grossly normal and well kempt Mental Status: mental status grossly normal Speech and movement: Normal speech and movement present and Clear speech present Affect: normal affect Attitude: cooperative Thought process: Normal thought process present Thought content: Normal thought content present Insight: Fair insight present (Psych) Judgement: Fair judgement present (Psych) Results AMB Urinalysis, Automated UA Leukoctes 0 Max/uL Last Edit by [email or web address] on 12/22/23 15:23 UA Nitrite Last Edit by [email or web address] on 12/22/23 15:23 UA Urobilinogen 0.2 mg/dL Last Edit by [email or web address] on 12/22/23 15:23 UA Protein 15 mg/dL Last Edit by [email or web address] on 12/22/23 15:23 UA pH 5.5 Last Edit by [email or web address] on 12/22/23 15:23 UA Blood 10 Ryder/uL Last Edit by [email or web address] on 12/22/23 15:23 UA Specific [place] 1.030 Last Edit by [email or web address] on 12/22/23 15:23 UA Ketone Last Edit by [email or web address] on 12/22/23 15:23 UA Bilirubin 0 mg/dL Last Edit by [email or web address] on 12/22/23 15:23 UA Glucose 0 mg/dL Last Edit by [email or web address] on 12/22/23 15:23 Results Reviewed Results Reviewed: Laboratory Last Values Urine pH (Auto) 5.5 12/22/23 15:17 Specific [place] (Auto) 1.030 12/22/23 15:17 Urine Protein (Auto) 15 mg/dL 12/22/23 15:17 Glucose (UA)(Auto) 0 mg/dL 12/22/23 15:17 Urine Blood (Auto) 10 Ryder/uL 12/22/23 15:17 Urine Bilirubin (Auto) 0 mg/dL 12/22/23 15:17 Urine Urobilinogen (Auto) 0.2 mg/dL 12/22/23 15:17 Leukocyte Esterase (Auto) 0 Max/uL 12/22/23 15:17 Assessment & Plan Assessment & Plan (1) Prostate cancer: Comment: 08/2019 diagnosis - high-grade prostate cancer localized with brachytherapy and GnRH Code(s): C61 - Malignant neoplasm of prostate Category: Medical (2) Fatigue: Code(s): R53.83 - Other fatigue Category: Medical (3) Snoring: Code(s): R06.83 - Snoring Category: Medical (4) Erectile dysfunction after prostate brachytherapy: Code(s): N52.35 - Erectile dysfunction following radiation therapy Category: Medical Plan In office urinalysis results reviewed with the patient today. Recent PSA and testosterone results reviewed with the patient today; as noted above; stable Continue Cialis 10 mg PRN sexual activity; refill or provided Prescription provided for daily dosing of tadalafil 5 mg daily. Patient is happy with current voiding parameters Patient denies any urological issues or concerns at this time. PSA and testosterone in 6 months Follow-up in 6 months with labs to be completed prior; or sooner with any issues, concerns, and or questions. Orders: Orders AMB Urinalysis Automated Today Z13.9 - Encounter for screening, unspecified Prostate Specific Antigen 6 Months C61 - Malignant neoplasm of prostate Testosterone, Free/Total 6 Months E11.69 - Type 2 diabetes mellitus with other specified complication, N52.1 - Erectile dysfunction due to diseases classified elsewhere Medications: New tadalafil (Cialis) [id number] [facility] [id number] Member [id number] 5 mg PO DAILY 90 tabs 3RF 90 days Patient Instructions: The patient had an opportunity to ask questions regarding the treatment plan. All questions were answered. Physical exam, labs, and imaging were discussed and reviewed in detail. As well as risks, benefits, and discussion of treatment choices. No major barriers to understanding were identified. The patient expressed understanding and agreement with the above treatment plan. The patient was made aware they should contact our office by phone for worsening of their current condition, the appearance of new symptoms, or with any questions or concerns. Compliance is encouraged with any medications and follow up testing that is ordered. It is a privilege to be allowed the opportunity to participate in? your urological care.? Again, if you have any questions or concerns If you have any questions or concerns please do not hesitate to contact me. The office is [phone]. This note is constructed using voice recognition software. While every effort has been made to ensure accuracy [employer] errors may have been included. Yours sincerely, TOÑA Krishnamurthy Coding Level of Care Code Est Pt Level 3 (82675) Complex EM visit Add On G2211 Diagnoses Prostate cancer C61 Fatigue R53.83 Snoring R06.83 Erectile dysfunction after prostate brachytherapy N52.35
== END 2023-12-22 15:44 | disposition home or self-care (01) ==
PROVIDERS: PCP Internal Medicine; Visit Provider Nurse Practitioner Family
DX: C61 Malignant neoplasm of prostate (principal); R53.83 Other fatigue; R06.83 Snoring; N52.35 Erectile dysfunction following radiation therapy; Z13.9 Encounter for screening, unspecified
CPT/HCPCS: 99213; G2211

== ENCOUNTER 2023-12-22 14:41 | Outpatient (REF) | payer MEDICARE, SELFPAY ==
[2023-12-22 16:27] LABS: Urine Cytology See Pathology rpt
== END 2023-12-22 14:42 | disposition home or self-care (01) ==
LOC: HO.LNP 14:41
PROVIDERS: PCP Internal Medicine; Visit Provider Nurse Practitioner Family
DX: C61 Malignant neoplasm of prostate (principal); N52.35 Erectile dysfunction following radiation therapy; R06.02 Shortness of breath; R53.83 Other fatigue
CPT/HCPCS: 81003; 88112; 99212

== ENCOUNTER 2024-01-22 15:44 | Outpatient (AMB) | payer MEDICARE, SELFPAY ==
--- NOTE | 2024-01-22 15:50 | MHC.OFFVISCO ---
Intake Intake Visit Reasons: Anticoagulation Allergies No Known Allergies Allergy (Verified 01/22/24 15:45) Medication List - Last Reconciled 01/22/24 by Le Hay RN chlorhexidine gluconate 0.12% PO cyanocobalamin (vitamin B-12) 1,000 mcg PO DAILY metoprolol succinate ER 50 mg PO DAILY rosuvastatin 20 mg PO DAILY tadalafil 10 mg PO .PRN 90 days tadalafil (Cialis) 5 mg PO DAILY 90 days warfarin See Protocol 7.5MG X3DAYS/ 5MG X4DAYS; Nursing Note INR: 2.4 in therapeutic range Medications and supplements reviewed No changes in health, diet, medications, or supplements, Denies any signs and symptoms of bleeding or bruising or clotting. Bleeding, bruising, clotting discussed Nutritional guidance given Dose: 7.5mg x 1 day/ 5mg x 6 days F/U INR: 1 month Patient verbalizes understanding of instructions given Anti-Coag Initial Assessment Social Hx Patient Tobacco Use Status: Never used Tobacco alcohol intake: current Alcohol intake frequency: a few times a month Coding Level of Care Code Est Patient Level 1 Diagnoses Current use of anticoagulant therapy Z79.01 Results AMB INR Fingerstick AMB INR Fingerstick 2.4 Last Edit by Le Hay RN on 01/22/24 15:54 manual entry Assessment & Plan Assessment & Plan (1) Current use of anticoagulant therapy: Code(s): Z79.01 - ad terminal makeup operator (current) use of anticoagulants Category: Medical
[2024-01-22 16:41] LABS: Prothrombin Time Whole Bld POC 29.4 sec (11.1-13.5); ~PT, ~INR - Anti Coag Clinic 2.4 (0.9-1.1)
== END 2024-01-22 16:01 | disposition home or self-care (01) ==
LOC: HO.ACS 15:44
PROVIDERS: PCP Internal Medicine; Visit Provider Internal Medicine
DX: Z79.01 Long term (current) use of anticoagulants (principal)

== ENCOUNTER → 2024-01-22 15:44 | Outpatient (BNVA) | payer MEDICARE, SELFPAY | PROVIDERS: PCP Internal Medicine; Visit Provider Internal Medicine | DX: Z86.73 Personal history of transient ischemic attack (TIA), and cerebral infarction without residual deficits (principal); Z79.01 Long term (current) use of anticoagulants; Z51.81 Encounter for therapeutic drug level monitoring | CPT/HCPCS: 85610; 99211 ==

== ENCOUNTER 2024-02-13 07:19 | Outpatient (REF) | payer MEDICARE, SELFPAY ==
[2024-02-13 07:28] LABS: MANUAL DIFF FLAG NO
[2024-02-13 07:57] LABS: Basophils Percent Auto 0.4 % (0-2); Eosinophils Absolute Auto 0.1 X10*3/uL (0.0-0.4); Hematocrit 44.3 % (42.0-52.0); Hemoglobin 14.8 g/dl (14.0-18.0); Imm Gran Abs Auto 0.01 X10*3/uL (0.00-0.03); Imm Gran Pct Auto 0.2 % (0.0-0.4); Lymphocytes Absolute Auto 1.3 X10*3/uL (1.2-4.9); Lymphocytes Percent Auto 25.5 % (20-40); Mean Corpuscular HGB Conc 33.4 g/dl (31.0-36.0); Mean Corpuscular Hemoglobin 29.2 pg (27.0-33.0); Mean Corpuscular Volume 87.5 fL (80.0-98.0); Mean Platelet Volume 9.1 fL (9.4-12.4); Monocytes Absolute Auto 0.7 X10*3/uL (0.1-1.2); Monocytes Percent Auto 13.4 % (2-11); Neutrophils Absolute Auto 2.9 x10*3/uL (2.0-8.3); Neutrophils Percent Auto 58.5 % (45-73); Platelet Count 220 X10*3/uL (160-400); Red Blood Count 5.06 X10*6/uL (4.60-5.80); Red Cell Distribution Width 13.6 % (11.0-16.0)
[2024-02-13 08:46] LABS: Alanine Aminotransferase 14 U/L (0-40); Albumin Level 4.1 g/dL (3.5-5.0); Alkaline Phosphatase 43 U/L (39-117); Anion Gap 12 (12-20); Aspartate Amino Transferase 18 U/L (5-37); Bilirubin Total 0.6 mg/dL (0.0-1.0); Blood Urea Nitrogen 21 mg/dL (9-16); Calcium 9.5 mg/dL (8.4-10.2); Carbon Dioxide 27 mmol/L (22-29); Chloride 107 mmol/L (96-108); Cholesterol 143 mg/dL (<200); Estimated Glomerular Filt Rate > 60; Glucose Random 94 mg/dL (60-115); HDL Cholesterol 47 mg/dL (>40); LDL Cholesterol Calculated 83 mg/dL (<100); Magnesium 2.1 mg/dL (1.6-2.6); Potassium 4.9 mmol/L (3.3-5.1); Sodium 141 mmol/L (135-145); Total Protein 7.3 g/dL (6.5-8.0); Triglycerides 66 mg/dL (<150)
[2024-02-13 08:51] LABS: Free T4 (Free Thyroxine) 0.83 ng/dL (0.71-1.85)
[2024-02-13 08:57] LABS: PSA,Total (Free>4and<10) < 0.10 ng/mL (0.00-4.00)
[2024-02-13 09:02] LABS: Folate 8.6 ng/mL (> or = 4.0); Prostate Specific Antigen Scr < 0.10 ng/mL (<0.05-4.0); Vitamin B12 584 pg/mL (200-900)
== END 2024-02-13 07:20 | disposition home or self-care (01) ==
LOC: HO.LAB 07:19
PROVIDERS: PCP Internal Medicine; Visit Provider Internal Medicine
DX: E78.00 Pure hypercholesterolemia, unspecified (principal); C61 Malignant neoplasm of prostate; Z12.5 Encounter for screening for malignant neoplasm of prostate
CPT/HCPCS: 36415; 80053; 80061; 82607; 82746; 83735; 84153; 84439; 84443; 85025

== ENCOUNTER 2024-02-19 13:02 | Outpatient (AMB) | payer MEDICARE, SELFPAY ==
[2024-02-19 13:18] LABS: Prothrombin Time Whole Bld POC 37.5 sec (11.1-13.5); ~PT, ~INR - Anti Coag Clinic 3.1 (0.9-1.1)
--- NOTE | 2024-02-19 13:18 | MHC.OFFVISCO ---
Intake Intake Visit Reasons: Anticoagulation Allergies No Known Allergies Allergy (Verified 02/19/24 13:06) Medication List - Last Reconciled 02/19/24 by Michelle Haskins RN chlorhexidine gluconate 0.12% PO cyanocobalamin (vitamin B-12) 1,000 mcg PO DAILY metoprolol succinate ER 50 mg PO DAILY rosuvastatin 20 mg PO DAILY tadalafil 10 mg PO .PRN 90 days tadalafil (Cialis) 5 mg PO DAILY 90 days warfarin See Protocol 7.5MG X3DAYS/ 5MG X4DAYS; Nursing Note INR: 3.1out of therapeutic range of 2-3 Medications and supplements reviewed No changes in health, diet, medications, or supplements, Denies any signs and symptoms of bleeding or bruising or clotting. Bleeding, bruising, clotting discussed Nutritional guidance given to have a serving of greens today Dose: 5mg X 6 days and 7.5mg X 1 day () F/U INR: 4 weeks Patient verbalizes understanding of instructions given Anti-Coag Initial Assessment Social Hx Patient Tobacco Use Status: Never used Tobacco alcohol intake: current Alcohol intake frequency: a few times a month Coding Level of Care Code Est Patient Level 1 Diagnoses Current use of anticoagulant therapy Z79.01 Results AMB INR Fingerstick AMB INR Fingerstick 3.1 Last Edit by Michelle Haskins RN on 02/19/24 13:13 interface delay Assessment & Plan Assessment & Plan (1) Current use of anticoagulant therapy: Code(s): Z79.01 - [facility] (current) use of anticoagulants Category: Medical
== END 2024-02-19 13:21 | disposition home or self-care (01) ==
LOC: HO.ACS 13:02
PROVIDERS: PCP Internal Medicine; Visit Provider Internal Medicine
DX: Z79.01 Long term (current) use of anticoagulants (principal)

== ENCOUNTER → 2024-02-19 13:02 | Outpatient (BNVA) | payer MEDICARE, SELFPAY | PROVIDERS: PCP Internal Medicine; Visit Provider Internal Medicine | DX: Z86.73 Personal history of transient ischemic attack (TIA), and cerebral infarction without residual deficits (principal); Z79.01 Long term (current) use of anticoagulants; Z51.81 Encounter for therapeutic drug level monitoring | CPT/HCPCS: 85610; 99211 ==

== ENCOUNTER 2024-02-23 17:20 | Outpatient (AMB) | payer MEDICARE, SELFPAY ==
[2024-02-23 17:34] VITALS: BP 118/70; PULSE 72; O2SAT 96; BMI 32.4
--- NOTE | 2024-02-23 17:34 | MHC.PC.OV ---
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 Accompanied by: Self / Same As Patient Allergies No Known Allergies Allergy (Verified 02/23/24 17:39) Medication List - Last Reconciled 02/23/24 by Freya Zarco MD chlorhexidine gluconate 0.12% PO cyanocobalamin (vitamin B-12) 1,000 mcg PO DAILY metoprolol succinate ER 50 mg PO DAILY rosuvastatin 20 mg PO DAILY tadalafil 10 mg PO .PRN 90 days tadalafil (Cialis) 5 mg PO DAILY 90 days warfarin See Protocol 7.5MG X3DAYS/ 5MG X4DAYS; Tobacco use date assessed: 02/23/24 Fall risk assessment: No Falls in past year Last assessed Fall Risk: 02/23/24 Dental Screening Dental Screen Date: 02/23/24 Did you have a dental visit in the last 12 months?: Yes Did you have a dental problem in the last 6 months where you did not have access to dental care?: No Was dental information given to patient?: Patient has dentist HPI PE HPI Details 69-year-old obese male with prostate cancer, hypercholesterolemia history of CVA and ascending aorta aneurysm last seen in 09/13/2023. Patient's colonoscopy is up-to-date March 2019. Review of the notes seen urology in 12/13/2023 for the prostate cancer has had radiation therapy with hormones and brachytherapy patient presently on surveillance placed also on tadalafil. [facility] Medical History (Updated 02/23/24 @ 18:16 by Freya Zarco MD) Annual physical exam Ascending aortic aneurysm CVA (cerebral vascular accident) Hypercholesterolemia Mitral valve regurgitation Surgical History H/O mitral valve repair History of umbilical hernia repair Hx of appendectomy Family History Father Liver cancer Mother Lung cancer Social History (Updated 02/23/24 @ 18:03 by Freya Zarco MD) Housing: House Alcohol intake: current Alcohol intake frequency: a few times a month Comment: twice a month 3 drinks Patient Tobacco Use Status: Never used Tobacco e-Cigarette/Vaping Use: Never Used Second Hand Smoke Exposure: No service: No Current occupational status: retired Cognitive needs: No Hearing needs: No Vision needs: Yes Questionnaire Thrive Questionnaire Date Thrive assessed: 09/11/23 YEHUDA-7 AMB Questionnaire YEHUDA-7 Date YEHUDA - 7 assessed: 06/11/23 Source: Developed by Drs. Jorge Ribera, Otilia Davidson, Juan A Barboza and colleagues, with an educational lisha from [employer]. Review of Systems Const Denies poor appetite and Denies weakness Eyes Denies no additional complaints ENT Reports Normal hearing present, Denies dizziness, Denies nasal congestion, Denies tinnitus and Denies sore throat Card Denies chest pain, Denies syncope, Denies rapid heart rate and Denies dyspnea Resp Denies cough and Denies dyspnea GI Denies change in stool character, Reports constipation, Denies diarrhea, Denies nausea and Denies vomiting Denies dysuria and Denies urinary frequency Neuro Reports Normal hearing present, Denies confusion, Denies dizziness, Denies syncope and Denies weakness Psych Denies confusion Physical exam (Primary Care) Vital Signs: Last Vital Signs Pulse 72 02/23/24 17:34 BP 118/70 02/23/24 17:34 Pulse Ox 96 02/23/24 17:34 Oxygen Delivery Method Room Air 02/23/24 17:34 BMI result Body Mass Index 32.4 Tobacco/Smoking Status: Tobacco use Status Tobacco use date assessed 02/23/24 02/23/24 17:40 Patient Tobacco Use Status Never used Tobacco 02/23/24 17:40 e-Cigarette/Vaping Use Never Used 02/23/24 17:40 Thrive Assessment: Date of Thrive Assessment Date Thrive assessed 09/11/23 02/23/24 17:40 Const General: No confusion Orientation/consciousness: No confusion HENMT Head: Yes normocephalic Ears: external ears normal and TM's normal bilaterally Face and sinus: Yes normal facial exam Mouth: moist mucous membranes Throat: Yes tonsils normal Eyes Conjunctivae: conjunctivae normal Pupils: Equal, round and reactive pupils present and Pupil accommodation reflex normal Direct Ophthalmoscopy: normal light reflex Neck Neck: No lymphadenopathy Thyroid: Thyroid normal Chest Chest palpation & inspection: normal inspection of the chest Resp Effort & Inspection: normal respiratory effort and no audible wheezes Auscultation: clear to auscultation bilaterally, no crackles, no wheezes and lung sounds not diminished Cardio Rate: regular rate Rhythm: regular rhythm Peripheral pulses: radial pulses present and dorsalis pedis present GI Other: guaiac negative prostate none Palpation (GI): no masses Auscultation: normal bowel sounds and normoactive bowel sounds Rectal Exam - Male: Yes deferred Male General Exam: Yes normal external exam Skin General skin exam: no rashes or lesions noted Rashes: no rashes Neuro General: No confusion Cranial nerves: Yes Equal, round and reactive pupils present and Yes Normal hearing present Cognition (Neuro): normal cognition Gait exam (Neuro): Normal gait present Motor exam (neuro): 5/5 motor strength present throughout Deep tendon reflexes (DTR's): Right brachioradialis reflex intensity grade: 2+, Left brachioradialis reflex intensity grade: 2+, Right patellar reflex intensity grade: 2+ and Left patellar reflex intensity grade: 2+ Extrem General: No edema Assessment and Plan Assessment & Plan (1) Annual physical exam: Code(s): Z00.00 - Encounter for general adult medical examination without abnormal findings Plan: Patient is advised to eat healthy, keep well hydrated, keep active and have adequate sleep. (2) Ascending aortic aneurysm: Comment: November 2020 sinus of Valsalva 4.6 cm, ascending aorta 3.7 cm, 02/2022 4.1 cm, 02/2023 4.5 cm Code(s): I71.2 - Thoracic aortic aneurysm, without rupture Plan: Continuing to monitor with echocardiogram planned in February. (3) Hypercholesterolemia: Code(s): E78.00 - Pure hypercholesterolemia, unspecified Plan: Avoid fried foods, chicken skin, eggs, butter margarine, pastries and meat. Be it pork or beef they have a lot of cholesterol LDL goal of less than 70 and triglyceride of less than 150. On rosuvastatin for 20 mg once a day (4) DVT (deep venous thrombosis): Comment: R leg 2016 R distal popliteal Code(s): I82.409 - Acute embolism and thrombosis of unspecified deep veins of unspecified lower extremity Qualifiers: DVT location: lower extremity Affected thrombotic vein of extremity: popliteal Chronicity: chronic Laterality: right Qualified Code(s): I82.531 - Chronic embolism and thrombosis of right popliteal vein Plan: Continuing with anticoagulation (5) Prostate cancer: Comment: 08/2019 diagnosis - high-grade prostate cancer localized with brachytherapy and GnRH Code(s): C61 - Malignant neoplasm of prostate Plan: Continue to follow-up with urology under surveillance (6) CVA (cerebral vascular accident): Comment: 2015, drooping of face, no weaness of arms Code(s): I63.9 - Cerebral infarction, unspecified Plan: Control the cholesterol, weight, blood pressure, continue with anticoagulation (7) Hearing difficulty: Code(s): H91.90 - Unspecified hearing loss, unspecified ear Orders: Referrals Speech and Hearing Referral H91.90 - Unspecified hearing loss, unspecified ear Coding Level of Care Code Est Pt Prev Care >65y(12842) Diagnoses Annual physical exam Z00.00 Ascending aortic aneurysm I71.2 Hypercholesterolemia E78.00 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
== END 2024-02-23 18:25 | disposition home or self-care (01) ==
PROVIDERS: PCP Internal Medicine; Visit Provider Internal Medicine
DX: Z00.00 Encounter for general adult medical examination without abnormal findings (principal); I71.20 Thoracic aortic aneurysm, without rupture, unspecified; I82.531 Chronic embolism and thrombosis of right popliteal vein; C61 Malignant neoplasm of prostate; Z86.73 Personal history of transient ischemic attack (TIA), and cerebral infarction without residual deficits; E78.00 Pure hypercholesterolemia, unspecified

== ENCOUNTER → 2024-02-23 17:20 | Outpatient (BNVA) | payer MEDICARE, SELFPAY | PROVIDERS: PCP Internal Medicine; Visit Provider Internal Medicine | DX: Z00.01 Encounter for general adult medical examination with abnormal findings (principal); E78.00 Pure hypercholesterolemia, unspecified; I71.20 Thoracic aortic aneurysm, without rupture, unspecified; I82.531 Chronic embolism and thrombosis of right popliteal vein; C61 Malignant neoplasm of prostate; I63.9 Cerebral infarction, unspecified; H91.90 Unspecified hearing loss, unspecified ear | CPT/HCPCS: 99397 ==

== ENCOUNTER → 2024-03-16 07:59 | Outpatient (REF) | payer MEDICARE, SELFPAY ==
--- NOTE | 2024-03-16 08:02 | CA_ITS ---
Transthoracic Echocardiogram Patient (Last, First, Middle): Carter Pantoja A Gender: Male Date of : 1955 Age: 69 Procedure Date: 03/16/2024 Procedure Type: Transthoracic Echocardiogram Location: OP Height: 177.8 cm Weight: 104.33 kg BSA: 2.22 m2 Heart Rate: bpm BP: 130 / 82 mmHg Repeat Chief: Referring MD: Cecil David MD Symptoms: Z98.890 - Other specified postprocedural states Study Quality: Adequate ECG Rhythm: Sinus Conclusions: - The left ventricular systolic function is normal. The calculated ejection fraction is 59% by biplane method. - s/p mitral valve repair. Normal valvular function. Findings Left Ventricle Normal left ventricular cavity size. There is normal left ventricular wall thickness. The left ventricular systolic function is normal. The calculated ejection fraction is 59% by biplane method. There is no evidence of regional wall motion abnormalities. Diastolic function is indeterminate on the basis of available data. Right Ventricle Mildly increased right ventricular cavity size. There is normal right ventricular systolic function. Atria Both atria are normal in size. Aortic Valve There is a normal trileaflet aortic valve. There is no aortic valve stenosis. There is trace (trivial) aortic valve regurgitation. Mitral Valve There is trace mitral valve regurgitation. s/p mitral valve repair. Normal valvular function. Pulmonic Valve The pulmonic valve is likely normal. Tricuspid Valve There is trace tricuspid valve regurgitation. There is no evidence of pulmonary hypertension. Great Vessels There is mild dilatation of the sinuses of Valsalva measuring 4.40 cm and mild dilatation of the ascending aorta measuring 4.10 cm. Small plaque is seen in the sinuses of Valsalva. Venous The inferior vena cava is normal in size and collapses greater than 50% with inspiration. Pericardium/Pleural There is no evidence of pericardial effusion. Prior Study Comparison Changes noted compared to prior study dated: 02/25/2023. LV cavity size in the upper normal range. Normal mitral valve function, s/p repair. Measurements 2D Linear Measurements IVSd: 1.05 0.6-0.9/0.6-1.0 cm LVIDd: 5.51 3.9-5.3/4.2-5.9 cm LVIDd Index: 2.48 2.4-3.2/2.2-3.1 cm/m2 LVIDs: 3.69 2.0-3.6 cm LVPWd: 1.01 0.7-1.1 cm Ao Root: 4.40 2.1-3.5 cm LA Diam: 4.10 2.7-3.8/3.0-4.0 cm LAIDs Index: 1.85 1.5-2.3 cm/m2 LV Mass: 277.17 67-162/88-224 g LV Mass Index: 124.85 43-95/49-115 g/m2 LVOT Diam: 2.90 3.0+(-)1.3 cm 2D Systolic Function EF 4C: 57.50 >55% EF 2C: 56.70 >55% EF BiP: 58.70 >55% Mitral Valve MV VTI: 0.52 MV Pk [place]: 1.36 MV Mn [place]: 0.88 MV Pk Grad: 7.00 MV Mn Grad: 4.00 MV Pk E: 1.37 MV PK A: 1.23 MV Decel Time: 306.00 E/A: 1.10 E'Lateral: 6.64 E'Medial: 4.90 E/E' Med: 28.00 E/E' Lat: 20.60 PHT: 89.00 MVA PHT: 2.47 MVA Continuity: 2.40 Decel Hardy: 4.49 Aortic Valve AoV Pk [place]: 1.09 AoV Mn [place]: 0.77 AoV VTI: 0.27 AoV Pk Grad: 5.00 Aov Mn Grad: 3.00 GWENDOLYN Cont.VTI: 4.65 LVOT LVOT Pk [place]: 0.77 LVOT Mn [place]: 0.49 LVOT VTI: 0.19 LVOT Pk Grad: 2.00 LVOT Mn Grad: 1.00 LVOT Diam: 2.90 LVOT Area: 6.61 Diastolic Function MV Pk E: 1.37 MV Pk A: 1.23 E/A: 1.10 E'Medial: 4.90 E/E' Med: 28.00 E' Laterial: 6.64 E/E' Lat: 20.60 Right Ventricle TAPSE (mm): 31.00 TVS' [place]: 11.00 Tricuspid Valve TR Pk [place]: 1.87 TR Pk Grad: 14.00 RA Press: 3.00 RVSP: 17.00 Great Vessels Aorta Ao Root-2D: 4.40 2.0-3.7 cm Sinus of Valsalva: 4.40 2.0-3.5 cm Ao Asc: 4.10 2.1-3.4 cm Pulmonary Valve PV Pk [place]: 0.86 Peak PV Grad: 3.00 Updated in Other Vendor System with Status of Final Zain Fuentes MD electronically signed on 03/17/2024 9:31:46 AM with status of Final
== END ==
LOC: HO.CARD 07:59
PROVIDERS: PCP Internal Medicine; Visit Provider Internal Medicine Cardiovascular Disease
DX: Z98.890 Other specified postprocedural states (principal)
CPT/HCPCS: 93306

== ENCOUNTER → 2024-03-16 08:02 | Outpatient (BNV) | payer MEDICARE, SELFPAY | PROVIDERS: PCP Internal Medicine; Visit Provider Internal Medicine | DX: Z98.890 Other specified postprocedural states (principal); Z95.4 Presence of other heart-valve replacement | CPT/HCPCS: 93306 ==

== ENCOUNTER 2024-03-25 14:48 | Outpatient (AMB) | payer MEDICARE, SELFPAY ==
--- NOTE | 2024-03-25 15:05 | MHC.OFFVISCO ---
Intake Intake Visit Reasons: Anticoagulation Allergies No Known Allergies Allergy (Verified 03/25/24 14:50) Medication List - Last Reconciled 03/25/24 by Le Hay RN chlorhexidine gluconate 0.12% PO cyanocobalamin (vitamin B-12) 1,000 mcg PO DAILY metoprolol succinate ER 50 mg PO DAILY rosuvastatin 20 mg PO DAILY tadalafil 10 mg PO .PRN 90 days tadalafil (Cialis) 5 mg PO DAILY 90 days warfarin See Protocol 7.5MG X3DAYS/ 5MG X4DAYS; Nursing Note INR: 2.7 in therapeutic range Medications and supplements reviewed No changes in health, diet, medications, or supplements, Denies any signs and symptoms of bleeding or bruising or clotting. Bleeding, bruising, clotting discussed Nutritional guidance given Dose: 7.5MG X 1 DAY/ 5MG X 6 DAYS F/U INR: 1 MONTH Patient verbalizes understanding of instructions given Anti-Coag Initial Assessment Social Hx Patient Tobacco Use Status: Never used Tobacco alcohol intake: current Alcohol intake frequency: a few times a month Coding Level of Care Code Est Patient Level 1 Diagnoses Current use of anticoagulant therapy Z79.01 Results AMB INR Fingerstick AMB INR Fingerstick 2.7 Last Edit by Le Hay RN on 03/25/24 15:01 MANUAL ENTRY Assessment & Plan Assessment & Plan (1) Current use of anticoagulant therapy: Code(s): Z79.01 - termite exterminator (current) use of anticoagulants Category: Medical
[2024-03-25 15:59] LABS: Prothrombin Time Whole Bld POC 32.3 sec (11.1-13.5); ~PT, ~INR - Anti Coag Clinic 2.7 (0.9-1.1)
== END 2024-03-25 15:07 | disposition home or self-care (01) ==
LOC: HO.ACS 14:48
PROVIDERS: PCP Internal Medicine; Visit Provider Internal Medicine
DX: Z79.01 Long term (current) use of anticoagulants (principal)

== ENCOUNTER → 2024-03-25 14:48 | Outpatient (BNVA) | payer MEDICARE, SELFPAY | PROVIDERS: PCP Internal Medicine; Visit Provider Internal Medicine | DX: Z86.718 Personal history of other venous thrombosis and embolism (principal); Z79.01 Long term (current) use of anticoagulants; Z51.81 Encounter for therapeutic drug level monitoring | CPT/HCPCS: 85610; 99211 ==

== ENCOUNTER 2024-04-29 15:35 | Outpatient (AMB) | payer MEDICARE, SELFPAY ==
--- NOTE | 2024-04-29 15:41 | MHC.OFFVISCO ---
Intake Intake Visit Reasons: Anticoagulation Allergies No Known Allergies Allergy (Verified 04/29/24 15:36) Medication List - Last Reconciled 04/29/24 by Michelle Haskins RN chlorhexidine gluconate 0.12% PO cyanocobalamin (vitamin B-12) 1,000 mcg PO DAILY metoprolol succinate ER 50 mg PO DAILY rosuvastatin 20 mg PO DAILY tadalafil 10 mg PO .PRN 90 days tadalafil (Cialis) 5 mg PO DAILY 90 days warfarin See Protocol 7.5MG X3DAYS/ 5MG X4DAYS; Nursing Note INR: 2.1 in therapeutic range of 2-3 Medications and supplements reviewed No changes in health, diet, medications, or supplements, Denies any signs and symptoms of bleeding or bruising or clotting. Bleeding, bruising, clotting discussed Nutritional guidance given to avoid greens today and to have a serving of a food on the list that raises the INR Dose: 5mg X 6 days and 7.5mg X 1 day F/U INR: 5 weeks per pt request Patient verbalizes understanding of instructions given Anti-Coag Initial Assessment Social Hx Patient Tobacco Use Status: Never used Tobacco alcohol intake: current Alcohol intake frequency: a few times a month Coding Level of Care Code Est Patient Level 1 Diagnoses Current use of anticoagulant therapy Z79.01 Results AMB INR Fingerstick AMB INR Fingerstick 2.1 Last Edit by Michelle Haskins RN on 04/29/24 15:41 interface delay Assessment & Plan Assessment & Plan (1) Current use of anticoagulant therapy: Code(s): 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
[2024-04-29 15:48] LABS: Prothrombin Time Whole Bld POC 25.3 sec (11.1-13.5); ~PT, ~INR - Anti Coag Clinic 2.1 (0.9-1.1)
== END 2024-04-29 15:53 | disposition home or self-care (01) ==
LOC: HO.ACS 15:35
PROVIDERS: PCP Internal Medicine; Visit Provider Internal Medicine
DX: Z79.01 Long term (current) use of anticoagulants (principal)

== ENCOUNTER → 2024-04-29 15:35 | Outpatient (BNVA) | payer MEDICARE, SELFPAY | PROVIDERS: PCP Internal Medicine; Visit Provider Internal Medicine | DX: Z86.73 Personal history of transient ischemic attack (TIA), and cerebral infarction without residual deficits (principal); Z79.01 Long term (current) use of anticoagulants; Z51.81 Encounter for therapeutic drug level monitoring | CPT/HCPCS: 85610; 99211 ==

== ENCOUNTER 2024-06-01 14:16 | Outpatient (AMB) | payer MEDICARE, SELFPAY ==
--- NOTE | 2024-06-01 14:19 | MHC.OFFVIS ---
Vital Signs 06/01/24 14:20 Height 5 ft 11 in Weight 246 lb 14.684 oz BMI 34.4 BP 124/80 Blood Pressure Location Lt brachial Position Sitting Pulse 65 Intake Visit Reasons: 1Y Echo Intake Note: 1 year follow-up with ekg after echo feeling good Director Of Restaurant Required: No Allergies No Known Allergies Allergy (Verified 04/29/24 15:36) Medication List - Last Reconciled 06/01/24 by Cecil David MD chlorhexidine gluconate 0.12% PO cyanocobalamin (vitamin B-12) 1,000 mcg PO DAILY metoprolol succinate ER 50 mg PO DAILY rosuvastatin 20 mg PO DAILY tadalafil 10 mg PO .PRN 90 days tadalafil (Cialis) 5 mg PO DAILY 90 days warfarin See Protocol 7.5MG X3DAYS/ 5MG X4DAYS; HPI Comments Details: Carter comes for follow-up. Overall he has been doing well from cardiac perspective. Denies any cardiac symptoms. Has been slowing down overall activity level although says still remains functional. No exertional chest pain or shortness of breath. No prolonged palpitation irregular heartbeat. Recent echocardiogram shows good mitral valve repair with mildly dilated ascending aorta which has remained stable. Takes all his medications. [facility] Medical History Annual physical exam Ascending aortic aneurysm CVA (cerebral vascular accident) Hypercholesterolemia Mitral valve regurgitation Surgical History H/O mitral valve repair History of umbilical hernia repair Hx of appendectomy Family History Father Liver cancer Mother Lung cancer Social History Housing: House Alcohol intake: current Alcohol intake frequency: a few times a month Comment: twice a month 3 drinks Patient Tobacco Use Status: Never used Tobacco e-Cigarette/Vaping Use: Never Used Second Hand Smoke Exposure: No service: No Current occupational status: retired Cognitive needs: No Hearing needs: No Vision needs: Yes Review of Systems Const Denies chills, Denies fatigue, Denies fever(s), Denies frequent falls, Denies weakness, Denies weight gain and Denies weight loss ENT Denies dizziness Card Denies chest pain, Denies leg edema, Denies lightheadedness, Denies palpitations, Denies dyspnea, Denies dyspnea on exertion, Denies orthopnea and Denies other (loss of consciousness) Resp Denies cough, Denies dyspnea and Denies dyspnea on exertion GI Denies hematochezia and Denies change in stool character Musc Denies abnormal gait, Denies muscle weakness, Denies numbness, Denies radiating pain into limb and Denies tingling Neuro Denies abnormal gait, Denies dizziness, Denies frequent falls, Denies numbness, Denies tingling and Denies weakness Endo Denies fatigue and Denies palpitations Physical Exam Vital Signs: Last Vital Signs Pulse 65 06/01/24 14:20 BP 124/80 06/01/24 14:20 BMI result Body Mass Index 34.4 Const General: cooperative, comfortable, no acute distress, alert and awake Nutritional Appearance: obese Orientation/consciousness: patient oriented x3 Limitations: no limitations Neck Neck: Yes trachea midline, Yes supple and Yes no JVD Resp Effort & Inspection: normal respiratory effort Auscultation: clear to auscultation bilaterally Cardio Jugular venous distension: no JVD Palpation: normal PMI Rate: regular rate Rhythm: regular rhythm Heart sounds: S1 normal heart sound present, S2 normal heart sound present, no click, no gallops, no murmurs and no rubs GI Auscultation: normal bowel sounds Skin General skin exam: no rashes or lesions noted Neuro General: patient oriented x3 and no focal motor deficits Extrem General: Yes no clubbing, cyanosis or edema Psych Appearance: grossly normal Office Procedures EKG Details: EKG shows normal sinus rhythm first-degree AV block otherwise normal EKG [id number], Complete Assessment & Plan Assessment & Plan (1) H/O mitral valve repair: Code(s): Z98.890 - Other specified postprocedural states Category: Surgical Plan: History of mitral valve repair for severe mitral regurgitation secondary mitral valve prolapse. Has done well. Continue current medications with risk factor modification. SBE prophylaxis as per ACC/aha guidelines. Follow-up echocardiogram in 1 year's time. (2) CVA (cerebral vascular accident): Comment: 2015, drooping of face, no weaness of arms Code(s): I63.9 - Cerebral infarction, unspecified Category: Medical Plan: Prior history of CVA with no recurrence since warfarin therapy. Has done well. Has prior history of DVT. 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 Atrial fibrillation can not be entirely ruled out. However continue warfarin therapy for life. Target INR between 2 and 3. (3) Ascending aortic aneurysm: Comment: November 2020 sinus of Valsalva 4.6 cm, ascending aorta 3.7 cm, 02/2022 4.1 cm, 02/2023 4.5 cm Code(s): I71.2 - Thoracic aortic aneurysm, without rupture Category: Medical Plan: Mild ascending aortic aneurysm. Clinically without any significant worsening at this point time. Continue monitor by echocardiogram on annual basis. Continue aggressive risk factor modification. Continue statin therapy with target goal LDL less than 100 mg/dL. Continue metoprolol therapy with good blood pressure control at this point time. Advised to avoid sudden strenuous isometric exercise. Will follow up in the clinic in 1 year's time after an echocardiogram. Thank you for allowing me to partake in his care Coding Level of Care Code Est Pt Level 4 (15477) Complex EM visit Add On G2211 Diagnoses H/O mitral valve repair Z98.890 CVA (cerebral vascular accident) I63.9 Ascending aortic aneurysm I71.2 CPT Codes EKG - CPT: [id number], Complete ([id number])
[2024-06-01 14:20] VITALS: BP 124/80; PULSE 65; BMI 34.4
== END 2024-06-01 14:47 | disposition home or self-care (01) ==
PROVIDERS: PCP Internal Medicine; Visit Provider Internal Medicine Cardiovascular Disease
DX: Z98.890 Other specified postprocedural states (principal); I63.9 Cerebral infarction, unspecified; I71.20 Thoracic aortic aneurysm, without rupture, unspecified
CPT/HCPCS: 93010; 99214; G2211

== ENCOUNTER → 2024-06-01 14:16 | Outpatient (BNVA) | payer MEDICARE, SELFPAY | PROVIDERS: PCP Internal Medicine; Visit Provider Internal Medicine Cardiovascular Disease | DX: I71.20 Thoracic aortic aneurysm, without rupture, unspecified (principal); Z86.73 Personal history of transient ischemic attack (TIA), and cerebral infarction without residual deficits; Z98.890 Other specified postprocedural states | CPT/HCPCS: 93005; 99212 ==

== ENCOUNTER 2024-06-03 15:39 | Outpatient (AMB) | payer MEDICARE, SELFPAY ==
[2024-06-03 15:48] LABS: Prothrombin Time Whole Bld POC 24.6 sec (11.1-13.5)
--- NOTE | 2024-06-03 15:58 | MHC.OFFVISCO ---
Intake Intake Visit Reasons: Anticoagulation Allergies No Known Allergies Allergy (Verified 06/03/24 15:43) Medication List - Last Reconciled 06/03/24 by Le Hay RN chlorhexidine gluconate 0.12% PO cyanocobalamin (vitamin B-12) 1,000 mcg PO DAILY metoprolol succinate ER 50 mg PO DAILY rosuvastatin 20 mg PO DAILY tadalafil 10 mg PO .PRN 90 days tadalafil (Cialis) 5 mg PO DAILY 90 days warfarin See Protocol 7.5MG X3DAYS/ 5MG X4DAYS; Nursing Note INR: 2.0 in therapeutic range Medications and supplements reviewed- no changes Had slight nosebleed 2 days ago - just a trickle he said while sitting eating dinner, had a recent appt with grounds caretaker b/p 120's/80s he stated. He states he is drinking enough fluids - urine is pale clear in color, home humidification enc due to recent cold dry winter air and use of heat maybe drying nares, enc to call md if continues Denies any signs and symptoms of bleeding or bruising or clotting. Bleeding, bruising, clotting discussed Nutritional guidance given- review food list - avoid greens today - eat more foods to help raise the INR Dose: same dose: 7.5mg today( ) 5mg al other days F/U INR: 1 month Patient verbalizes understanding of instructions given Anti-Coag Initial Assessment Social Hx Patient Tobacco Use Status: Never used Tobacco alcohol intake: current Alcohol intake frequency: a few times a month Coding Level of Care Code Est Patient Level 1 Diagnoses Current use of anticoagulant therapy Z79.01 Assessment & Plan Assessment & Plan (1) Current use of anticoagulant therapy: Code(s): Z79.01 - halfway (current) use of anticoagulants Category: Medical
== END 2024-06-03 16:04 | disposition home or self-care (01) ==
LOC: HO.ACS 15:39
PROVIDERS: PCP Internal Medicine; Visit Provider Internal Medicine
DX: Z79.01 Long term (current) use of anticoagulants (principal)

== ENCOUNTER → 2024-06-03 15:39 | Outpatient (BNVA) | payer MEDICARE, SELFPAY | PROVIDERS: PCP Internal Medicine; Visit Provider Internal Medicine | DX: Z86.73 Personal history of transient ischemic attack (TIA), and cerebral infarction without residual deficits (principal); Z79.01 Long term (current) use of anticoagulants; Z51.81 Encounter for therapeutic drug level monitoring | CPT/HCPCS: 85610; 99211 ==

== ENCOUNTER 2024-06-11 07:48 | Outpatient (REF) | payer MEDICARE, SELFPAY ==
[2024-06-11 09:33] LABS: Prostate Specific Antigen < 0.10 ng/mL (<0.05-4.0)
[2024-06-17 20:14] LABS: Testosterone, Free 51.1 pg/mL (35.0-155.0); Testosterone, Total 343 ng/dL (250-1100)
== END 2024-06-11 07:49 | disposition home or self-care (01) ==
LOC: HO.LAB 07:48
PROVIDERS: PCP Internal Medicine; Visit Provider Nurse Practitioner Family
DX: E11.69 Type 2 diabetes mellitus with other specified complication (principal); N52.1 Erectile dysfunction due to diseases classified elsewhere; C61 Malignant neoplasm of prostate; Z12.5 Encounter for screening for malignant neoplasm of prostate
CPT/HCPCS: 36415; 84153; 84402; 84403

== ENCOUNTER 2024-06-23 14:24 | Outpatient (AMB) | payer MEDICARE, SELFPAY ==
--- NOTE | 2024-06-23 14:48 | A.OFFVIS_ITS ---
Intake Visit Reasons: 6m/PSA/Testo(testosterone pending) Intake Note: Patient is present for PSA/Testosterone Results Urology Med: Tadalafil Antibiotic Allergy:None Blood Thinner: Warfarin Accompanied by: Self / Same As Patient Allergies No Known Allergies Allergy (Verified 06/23/24 20:27) Medication List - Last Reconciled 06/23/24 by DARIUS Krishnamurthy- chlorhexidine gluconate 0.12% PO cyanocobalamin (vitamin B-12) 1,000 mcg PO DAILY metoprolol succinate ER 50 mg PO DAILY rosuvastatin 20 mg PO DAILY tadalafil 10 mg PO .PRN 90 days tadalafil (Cialis) 5 mg PO DAILY 90 days warfarin See Protocol 7.5MG X3DAYS/ 5MG X4DAYS; HPI Comments Details: Carter is a very pleasant 69-year-old male patient of Dr. Zarco. He has a past medical history of ascending aortic aneurysm, CVA, hypercholesteremia, mitral valve regurgitation, erectile dysfunction, and prostate cancer. He presents to the office today for follow-up of his prostate cancer and erectile dysfunction. Recent PSA and testosterone results reviewed with the patient today. Last labs PSA & Testosterone: 08/14 PSA <0.1, T 17, 12/14 <0.1, 06/17 <0.1, T 169, 12/15 <0.10, T 322, 06/18 <0.10, T 282, 12/16 PSA <0.10 T 278, 06/19 PSA <0.10 T 343 When asked patient reports to be doing and feeling well. He reports be happy with his current voiding parameters. He discusses compliance with 10 mg of tadalafil daily as well as p.r.n. dosing prior to sexual activity and feels this has been affective and managing his erectile dysfunction. When asked he denies urinary urgency, urinary frequency, incontinence, hematuria, dysuria, foul smelling urine, changes to urinary stream, flank pain, fever, and or chills. He does report episodes of nocturia however less than 2 times per night. He otherwise offers no other issues or concerns at this time. Prostate cancer: Grade group 4. XRT with hormones and brachy boost November 2019 Prostate cancer follow-up Prostate cancer was diagnosed 09/13/19 Dr Solano Diagnosis was reached by 09/13/19 needle biopsy, for elevated PSA, PSA at diagnosis 30, size at TRUS 30. The [place] grade is 8 4 cores from 12 5% 3+4 = 7,10% 3+4 = 7,5% 3+4 = 7, 20% , 4+4 = 8 Total 45%/1200% TNM Classification of Malignant Tumours (TNM) T1c. The D'Ajay (NCCN) risk category is High Risk (PSA > 20, Gl 8+, T3) Initial therapy - 12/12 XRT with boost brachy Imaging - bone scan negative, MRI organ contained Labs - 01/13 PSA < 0.1, T 17 Last GnRH 04/15 Therapeutic plan - laboratory surveillance [facility] Medical History Annual physical exam Ascending aortic aneurysm CVA (cerebral vascular accident) Hypercholesterolemia Mitral valve regurgitation Surgical History H/O mitral valve repair History of umbilical hernia repair Hx of appendectomy Family History Father Liver cancer Mother Lung cancer Social History Housing: House Alcohol intake: current Alcohol intake frequency: a few times a month Comment: twice a month 3 drinks Patient Tobacco Use Status: Never used Tobacco e-Cigarette/Vaping Use: Never Used Second Hand Smoke Exposure: No service: No Current occupational status: retired Cognitive needs: No Hearing needs: No Vision needs: Yes Review of Systems Const Reports as per HPI Eyes Reports no additional complaints ENT Reports no additional complaints Card Reports as per HPI Resp Reports no additional complaints GI Reports no additional complaints Reports as per HPI Musc Reports no additional complaints Neuro Reports no additional complaints Psych Reports no additional complaints Endo Reports no additional complaints Alexis/Lymph Reports no additional complaints Aller/Immun Reports no additional complaints Physical Exam Const General: cooperative, healthy appearing, comfortable, no acute distress, well developed, alert and awake Nutritional Appearance: overweight Orientation/consciousness: patient oriented x3 Limitations: no limitations HEENT Head: Yes normal to inspection, Yes normocephalic and Yes atraumatic Ears: hearing grossly normal bilaterally Eyes General: appearance normal, both eyes and all related structures Neck Neck: Yes normal visual inspection and Yes trachea midline Chest Chest palpation & inspection: normal inspection of the chest Resp Effort & Inspection: normal respiratory effort and able to speak in complete sentences Cardio Rate: regular rate GI Inspection: Yes normal to inspection General: Yes no CVA tenderness Back/Spine/Pelvis Back: no CVA tenderness Skin General skin exam: no rashes or lesions noted Neuro General: patient oriented x3 Extrem General: Yes normal to inspection Psych Appearance: grossly normal and well kempt Mental Status: mental status grossly normal Speech and movement: Normal speech and movement present and Clear speech present Affect: normal affect Attitude: cooperative Thought process: Normal thought process present Thought content: Normal thought content present Insight: Fair insight present (Psych) Judgement: Fair judgement present (Psych) Results AMB Urinalysis, Automated UA Leukoctes 0 Max/uL Last Edit by Barbara Cotter [facility] on 06/23/24 15:23 UA Nitrite Negative Last Edit by Barbara Cotter [facility] on 06/23/24 15:23 UA Urobilinogen 0.2 mg/dL Last Edit by Barbara Cotter [facility] on 06/23/24 15:2 3 UA Protein 15 mg/dL Last Edit by Barbara Cotter [facility] on 06/23/24 15:23 UA pH 5.0 Last Edit by Barbara Cotter [facility] on 06/23/24 15:23 UA Blood 25 Ryder/uL Last Edit by Barbara Cotter [facility] on 06/23/24 15:23 UA Specific [place] 1.030 Last Edit by Barbara Cotter [facility] on 06/23/24 15: 23 UA Ketone Positive Last Edit by Barbara Cotter [facility] on 06/23/24 15:23 UA Bilirubin 0 mg/dL Last Edit by Barbara Cotter [facility] on 06/23/24 15:23 UA Glucose 0 mg/dL Last Edit by Barbara Cotter [facility] on 06/23/24 15:23 Results Reviewed Results Reviewed: Laboratory Last Values Urine pH (Auto) 5.0 06/23/24 14:53 Specific [place] (Auto) 1.030 06/23/24 14:53 Urine Protein (Auto) 15 mg/dL 06/23/24 14:53 Glucose (UA)(Auto) 0 mg/dL 06/23/24 14:53 Urine Ketones (Auto) Positive 06/23/24 14:53 Urine Blood (Auto) 25 Ryder/uL 06/23/24 14:53 Urine Nitrite (Auto) Negative 06/23/24 14:53 Urine Bilirubin (Auto) 0 mg/dL 06/23/24 14:53 Urine Urobilinogen (Auto) 0.2 mg/dL 06/23/24 14:53 Leukocyte Esterase (Auto) 0 Max/uL 06/23/24 14:53 Assessment & Plan Assessment & Plan (1) Prostate cancer: Comment: 08/2019 diagnosis - high-grade prostate cancer localized with brachytherapy and GnRH Code(s): C61 - Malignant neoplasm of prostate Category: Medical (2) Erectile dysfunction after prostate brachytherapy: Code(s): N52.35 - Erectile dysfunction following radiation therapy Category: Medical (3) Fatigue: Code(s): R53.83 - Other fatigue Category: Medical (4) Snoring: Code(s): R06.83 - Snoring Category: Medical Plan In office urinalysis results reviewed with the patient today. Recent PSA and testosterone results reviewed with the patient today; as noted above; stable Continue daily dosing of tadalafil as well as p.r.n. dosing prior to sexual activity. Patient is happy with current voiding parameters Patient denies any urological issues or concerns at this time. PSA and testosterone in 6 months Follow-up in 6 months with labs to be completed prior; or sooner with any issues, concerns, and or questions. Orders: Orders AMB Urinalysis Automated Today Z13.9 - Encounter for screening, unspecified Testosterone, Free/Total 6 Months C61 - Malignant neoplasm of prostate, N52.35 - Erectile dysfunction following radiation therapy Prostate Specific Antigen 6 Months C61 - Malignant neoplasm of prostate, N52.35 - Erectile dysfunction following radiation therapy Patient Instructions: The patient had an opportunity to ask questions regarding the treatment plan. All questions were answered. Physical exam, labs, and imaging were discussed and reviewed in detail. As well as risks, benefits, and discussion of treatment choices. No major barriers to understanding were identified. The patient expressed understanding and agreement with the above treatment plan. The patient was made aware they should contact our office by phone for worsening of their current condition, the appearance of new symptoms, or with any questions or concerns. Compliance is encouraged with any medications and follow up testing that is ordered. It is a privilege to be allowed the opportunity to participate in? your urological care.? Again, if you have any questions or concerns If you have any questions or concerns please do not hesitate to contact me. The office is [phone]. This note is constructed using voice recognition software. While every effort has been made to ensure accuracy general duty nurse errors may have been included. Yours sincerely, TOÑA Krishnamurthy Coding Level of Care Code Est Pt Level 3 (85154) Complex EM visit Add On G2211 Diagnoses Prostate cancer C61 Erectile dysfunction after prostate brachytherapy N52.35 Fatigue R53.83 Snoring R06.83
--- OUTSIDE RECORDS SUMMARY | 2024-06-23 16:35 | XMS_ITS | Clinical Summary ---
Author Organization [facility] Address [address] [place] [address] Care Team Providers Care Import Export Agent Name Role Phone Jorge Glasgow DO Primary Care Provider Social History Tobacco Use Types Packs/Day Years Used Date Smoking Tobacco: Never Assessed Sex and Gender Information Value Date Recorded Sex Assigned at Not on file Gender Identity Not on file Sexual Orientation Not on file Plan of Treatment Health Maintenance Due Date Last Done Comments Hepatitis C Virus Screening 1955 DTaP/Tdap/Td Vaccines (1 - Tdap) 01/07/1976 Colonoscopy 2002 Pneumococcal Vaccines 50+ (1 of 1 - PCV) 2007 Zoster (Shingles) Vaccine (1 of 2) 2007 Influenza Vaccine 12/25/2023 COVID-19 Vaccine ( - 2023-2 5 season) 2024 RSV Vaccine 60 years and old er and Patients (1 - 1-dose 75+ series) 01/07/2032 Hepatitis B Vaccines Aged Out No long er eligible based on patient's age to complete this topic Care Teams Import Export Agent Relationship Specialty Start Date End Date Jorge Glasgow DO [address] [place] [id number] PCP - General Internal Medicine 11/03/19
--- OUTSIDE RECORDS SUMMARY | 2024-06-23 16:35 | XMS_ITS | Encounter Summary ---
Author Organization [facility] Address [address] [place] [address] Care Team Providers Care Hematology Specialist Name Role Phone Jorge Glasgow DO Primary Care Provider Encounter Details Date Type Department Care Team (Late st Contact Info) Description 11/03/2019 Scanned Document [facility] Urologic Surgery [address] [place] [id number] Misha Solano MD [address] [place] [id number] Social History Tobacco Use Types Packs/Day Years Used Date Smoking Tobacco: Never Assessed Sex and Gender Information Value Date Recorded Sex Assigned at Not on file Gender Identity Not on file Sexual Orientation Not on file documented as of this encounter Plan of Treatment Not on file documented as of this encounter Visit Diagnoses Not on filedocumented in this encounter Care Teams Hematology Specialist Relationship Specialty Start Date End Date Jorge Glasgow DO [address] [place] [id number] PCP - General Internal Medicine 11/03/19 documented as of this encounter
== END 2024-06-23 15:17 | disposition home or self-care (01) ==
PROVIDERS: PCP Internal Medicine; Visit Provider Nurse Practitioner Family
DX: C61 Malignant neoplasm of prostate (principal); N52.35 Erectile dysfunction following radiation therapy; R53.83 Other fatigue; R06.83 Snoring; Z13.9 Encounter for screening, unspecified
CPT/HCPCS: 99213; G2211

== ENCOUNTER → 2024-06-23 14:24 | Outpatient (BNVA) | payer MEDICARE, SELFPAY | PROVIDERS: PCP Internal Medicine; Visit Provider Nurse Practitioner Family | DX: C61 Malignant neoplasm of prostate (principal); N52.35 Erectile dysfunction following radiation therapy; R53.83 Other fatigue; R06.83 Snoring | CPT/HCPCS: 81003; 99212 ==

== ENCOUNTER → 2024-07-01 13:02 | Outpatient (BNVA) | payer MEDICARE, SELFPAY | PROVIDERS: PCP Internal Medicine; Visit Provider Internal Medicine | DX: Z86.73 Personal history of transient ischemic attack (TIA), and cerebral infarction without residual deficits (principal); Z79.01 Long term (current) use of anticoagulants; Z51.81 Encounter for therapeutic drug level monitoring | CPT/HCPCS: 85610; 99211 ==

== ENCOUNTER 2024-07-29 11:04 | Outpatient (AMB) | payer MEDICARE, SELFPAY ==
--- NOTE | 2024-07-29 11:18 | MHC.OFFVISCO ---
Intake Intake Visit Reasons: Anticoagulation Allergies No Known Allergies Allergy (Verified 07/29/24 11:05) Medication List - Last Reconciled 07/29/24 by Le Hay RN chlorhexidine gluconate 0.12% PO cyanocobalamin (vitamin B-12) 1,000 mcg PO DAILY metoprolol succinate ER 50 mg PO DAILY rosuvastatin 20 mg PO DAILY tadalafil 10 mg PO .PRN 90 days tadalafil (Cialis) 5 mg PO DAILY 90 days warfarin See Protocol 7.5MG X3DAYS/ 5MG X4DAYS; Nursing Note INR: 3.1 in therapeutic range Medications and supplements reviewed- Had a few days of antbx prior dental appt and will again today No changes in health, diet, medications, or supplements, Denies any signs and symptoms of bleeding or bruising or clotting. Bleeding, bruising, clotting discussed Nutritional guidance given - greens for lunch prior dental appt later this afternoon Dose: 5mg today instead 7.5mg then resume 7.5mg thur/ 5mg x 6 days / week F/U INR: 1 month - away visiting family in [place] Patient verbalizes understanding of instructions given with read back Anti-Coag Initial Assessment Social Hx Patient Tobacco Use Status: Never used Tobacco alcohol intake: current Alcohol intake frequency: a few times a month Coding Level of Care Code Est Patient Level 1 Diagnoses Current use of anticoagulant therapy Z79.01 Results AMB INR Fingerstick AMB INR Fingerstick 3.1 Last Edit by Le Hay RN on 07/29/24 11:12 manual entry Assessment & Plan Assessment & Plan (1) Current use of anticoagulant therapy: Code(s): Z79.01 - termite control representative (current) use of anticoagulants Category: Medical
[2024-07-29 11:42] LABS: Prothrombin Time Whole Bld POC 37.2 sec (11.1-13.5); ~PT, ~INR - Anti Coag Clinic 3.1 (0.9-1.1)
--- OUTSIDE RECORDS SUMMARY | 2024-07-29 13:30 | XMS_ITS | Clinical Summary ---
Author Organization [facility] Address [address] [place] [address] Care Team Providers Care Food Science Technician Name Role Phone Jorge Glasgow DO Primary [...] age to complete this topic Care Teams Food Science Technician Relationship Specialty Start Date End Date Jorge Glasgow DO [address] [place] [id number] PCP - General Internal Medicine 11/03/19
--- OUTSIDE RECORDS SUMMARY | 2024-07-29 13:30 | XMS_ITS | Encounter Summary ---
Author Organization [facility] Address [address] [place] [address] Care Team Providers Care Mobility Engineer Name Role Phone Jorge Glasgow DO Primary Care Provider Encounter Details Date Type Department Care Team (Late st Contact Info) Description 11/03/2019 Scanned Document [facility] Urologic Surgery [address] [place] [address] Misha Solano MD [address] [place] [address] Social History Tobacco Use Types Packs/Day Years Used Date Smoking Tobacco: Never Assessed Sex and Gender Information Value Date Recorded Sex Assigned at Not on file Gender Identity Not on file Sexual Orientation Not on file documented as of this encounter Plan of Treatment Not on file documented as of this encounter Visit Diagnoses Not on filedocumented in this encounter Care Teams Mobility Engineer Relationship Specialty Start Date End Date Jorge Glasgow DO [address] [place] [id number] PCP - General Internal Medicine 11/03/19 documented as of this encounter
== END 2024-07-29 11:22 | disposition home or self-care (01) ==
LOC: HO.ACS 11:04
PROVIDERS: PCP Internal Medicine; Visit Provider Internal Medicine
DX: Z79.01 Long term (current) use of anticoagulants (principal)

== ENCOUNTER → 2024-07-29 11:04 | Outpatient (BNVA) | payer MEDICARE, SELFPAY | PROVIDERS: PCP Internal Medicine; Visit Provider Internal Medicine | DX: Z86.73 Personal history of transient ischemic attack (TIA), and cerebral infarction without residual deficits (principal); Z79.01 Long term (current) use of anticoagulants; Z51.81 Encounter for therapeutic drug level monitoring | CPT/HCPCS: 85610; 99211 ==

== ENCOUNTER 2024-08-09 08:11 | Outpatient (REF) | payer MEDICARE, SELFPAY ==
[2024-08-09 08:21] LABS: MANUAL DIFF FLAG NO
[2024-08-09 08:32] LABS: Basophils Percent Auto 0.2 % (0-2); Eosinophils Absolute Auto 0.1 X10*3/uL (0.0-0.4); Eosinophils Percent Auto 2.1 % (0-4); Hematocrit 43.6 % (42.0-52.0); Hemoglobin 14.5 g/dl (14.0-18.0); Imm Gran Abs Auto 0.01 X10*3/uL (0.00-0.03); Imm Gran Pct Auto 0.2 % (0.0-0.4); Lymphocytes Absolute Auto 1.1 X10*3/uL (1.2-4.9); Lymphocytes Percent Auto 23.8 % (20-40); Mean Corpuscular HGB Conc 33.3 g/dl (31.0-36.0); Mean Corpuscular Hemoglobin 29.2 pg (27.0-33.0); Mean Corpuscular Volume 87.7 fL (80.0-98.0); Mean Platelet Volume 9.2 fL (9.4-12.4); Monocytes Absolute Auto 0.4 X10*3/uL (0.1-1.2); Monocytes Percent Auto 9.1 % (2-11); Neutrophils Percent Auto 64.6 % (45-73); Platelet Count 229 X10*3/uL (160-400); Red Blood Count 4.97 X10*6/uL (4.60-5.80); Red Cell Distribution Width 13.8 % (11.0-16.0); White Blood Count 4.7 X10*3/uL (4.8-10.8)
[2024-08-09 10:06] LABS: Alanine Aminotransferase 25 U/L (0-40); Alkaline Phosphatase 50 U/L (39-117); Anion Gap 12 (12-20); Aspartate Amino Transferase 30 U/L (5-37); Bilirubin Total 0.7 mg/dL (0.0-1.0); Blood Urea Nitrogen 16 mg/dL (9-16); Calcium 8.8 mg/dL (8.4-10.2); Carbon Dioxide 26 mmol/L (22-29); Chloride 107 mmol/L (96-108); Cholesterol 136 mg/dL (<200); Estimated Glomerular Filt Rate > 60; Free T4 (Free Thyroxine) 0.94 ng/dL (0.71-1.85); Glucose Random 87 mg/dL (60-115); HDL Cholesterol 43 mg/dL (>40); LDL Cholesterol Calculated 78 mg/dL (<100); Potassium 4.3 mmol/L (3.3-5.1); Sodium 141 mmol/L (135-145); Thyroid Stimulating Hormone 2.23 uIU/mL (0.32-4.0); Total Protein 7.4 g/dL (6.5-8.0); Triglycerides 78 mg/dL (<150)
[2024-08-09 10:30] LABS: Folate 9.4 ng/mL (> or = 4.0); Vitamin B12 685 pg/mL (200-900)
== END 2024-08-09 08:12 | disposition home or self-care (01) ==
LOC: HO.LAB 08:11
PROVIDERS: PCP Internal Medicine; Visit Provider Internal Medicine
DX: C61 Malignant neoplasm of prostate (principal); E78.00 Pure hypercholesterolemia, unspecified
CPT/HCPCS: 36415; 80053; 80061; 82607; 82746; 84439; 84443; 85025

== ENCOUNTER 2024-08-16 17:03 | Outpatient (AMB) | payer MEDICARE, SELFPAY ==
[2024-08-16 17:08] VITALS: BP 130/66; PULSE 71; TEMP 36.1; O2SAT 100; BMI 33.3
--- NOTE | 2024-08-16 17:08 | MHC.PC.OV ---
Vital Signs 08/16/24 17:08 Height 5 ft 11 in Weight 239 lb BMI 33.3 BP 130/66 Blood Pressure Location Lt brachial Position Sitting Pulse 71 Pulse Source Pulse Oximeter Temp 96.9 F Temp Source Temporal Artery Scan Pulse Oximetry (%) 100 Oxygen Delivery Method Room Air Intake Visit Reasons: 6 mo follow up Chick Sexer Required: No Accompanied by: Self / Same As Patient Allergies No Known Allergies Allergy (Verified 08/16/24 17:09) Medication List - Last Reconciled 08/16/24 by Freya Zarco MD chlorhexidine gluconate 0.12% PO cyanocobalamin (vitamin B-12) 1,000 mcg PO DAILY metoprolol succinate ER 50 mg PO DAILY rosuvastatin 20 mg PO DAILY tadalafil 10 mg PO .PRN 90 days tadalafil (Cialis) 5 mg PO DAILY 90 days warfarin See Protocol 7.5MG X3DAYS/ 5MG X4DAYS; Tobacco use date assessed: 08/16/24 Fall risk assessment: No Falls in past year Last assessed Fall Risk: 08/16/24 Dental Screening Dental Screen Date: 08/16/24 Did you have a dental visit in the last 12 months?: Yes Did you have a dental problem in the last 6 months where you did not have access to dental care?: No Was dental information given to patient?: Patient has dentist [facility] Medical History (Updated 08/16/24 @ 17:59 by Freya Zarco MD) Annual physical exam Ascending aortic aneurysm CVA (cerebral vascular accident) Hypercholesterolemia Mitral valve regurgitation Surgical History H/O mitral valve repair History of umbilical hernia repair Hx of appendectomy Family History Father Liver cancer Mother Lung cancer Social History Housing: House Alcohol intake: current Alcohol intake frequency: a few times a month Comment: twice a month 3 drinks Patient Tobacco Use Status: Never used Tobacco e-Cigarette/Vaping Use: Never Used Second Hand Smoke Exposure: No service: No Current occupational status: retired Cognitive needs: No Hearing needs: No Vision needs: Yes Questionnaire PHQ-9 Over the last 2 weeks, how often have you been bothered by any of the following problems? 1. Little interest or pleasure in doing things: not at all 2. Feeling down, depressed, or hopeless: not at all 3. Trouble falling or staying asleep, or sleeping too much: not at all 4. Feeling tired or having little energy: not at all 5. Poor appetite or overeating: not at all 6. Feeling bad about yourself - or that you are a failure or have let yourself or your family down: not at all 7. Trouble concentrating on things, such as reading the newspaper or watching television: not at all 8. Moving or speaking so slowly that other people could have noticed. Or the opposite - being so fidgety or restless that you have been moving around a lot more than usual: not at all 9. Thoughts that you would be better off or of hurting yourself in some way: not at all Total score: 0 Depression Screening Interpretation: Negative Depression Screening Done: Yes 87185 - PHQ-9 Billing: Yes Source: Developed by Drs. Jorge Ribera, Otilia Davidson, Juan A Barboza and colleagues, with an educational lisha from [employer]. Thrive Questionnaire Date Thrive assessed: 08/16/24 I am a: Patient What is your living situation today?: I have a steady place to live Within the past 12 months, did the food you bought not last and you didn't have the money to get more?: Never true Within the past 12 months, did you worry whether your food would run out before you got money to buy more?: Never true Do you have trouble paying for medicines?: No Do you have trouble getting transportation to medical appointments?: No Do you have trouble paying your heating and electricity bill?: No Do you have trouble taking care of your child, family member or friend?: No Do you have trouble with day-to-day activities such as bathing, preparing meals, shopping, managing finances, etc.?: No Are you currently unemployed and looking for a job?: No Are you interested in more education?: No Please select the resources that you would like help with: None Currently or been in a relationship where the following occur: No concerns reported THRIVE Score: 0 YEHUDA-7 AMB Questionnaire YEHUDA-7 Date YEHUDA - 7 assessed: 06/11/23 Source: Developed by Drs. Jorge Ribera, Otilia Davidson, Juan A Barboza and colleagues, with an educational lisha from [employer]. Physical exam (Primary Care) Vital Signs: Last Vital Signs Temp 96.9 F 08/16/24 17:08 Pulse 71 08/16/24 17:08 BP 130/66 08/16/24 17:08 Pulse Ox 100 08/16/24 17:08 Oxygen Delivery Method Room Air 08/16/24 17:08 BMI result Body Mass Index 33.3 Tobacco/Smoking Status: Tobacco use Status Tobacco use date assessed 08/16/24 08/16/24 17:09 Patient Tobacco Use Status Never used Tobacco 08/16/24 17:08 e-Cigarette/Vaping Use Never Used 08/16/24 17:08 PHQ-9: PHQ-9 Score PHQ-9: Total score 0 08/16/24 17:09 Depression Screening Interpretation: Negative Thrive Assessment: Date of Thrive Assessment Date Thrive assessed 08/16/24 08/16/24 17:17 Currently or been in a relationship where the following occur: No concerns reported Const General: alert; No acute distress Eyes Conjunctivae: conjunctivae normal Resp Auscultation: clear to auscultation bilaterally Cardio Rate: regular rate Rhythm: regular rhythm GI Inspection: Yes normal to inspection Extrem General: Yes normal to inspection and No edema Coding Level of Care Code Est Pt Level 4 (13674) Complex EM visit Add On G2211 Diagnoses Ascending aortic aneurysm I71.2 H/O mitral valve repair Z98.890 Hypercholesterolemia E78.00 Prostate cancer C61 CVA (cerebral vascular accident) I63.9 Groin pain, chronic, left R10.32; G89.29 Additional Codes PHQ-9 - 35391 - PHQ-9 Billing: Yes ([id number]) Assessment & Plan Assessment & Plan (1) Ascending aortic aneurysm: Comment: November 2020 sinus of Valsalva 4.6 cm, ascending aorta 3.7 cm, 02/2022 4.1 cm, 02/2023 4.5 cm February 2024 4.1 cm Code(s): I71.2 - Thoracic aortic aneurysm, without rupture Category: Medical Plan: Continue to monitor. February 2024 last echocardiogram. (2) H/O mitral valve repair: Code(s): Z98.890 - Other specified postprocedural states Category: Surgical Plan: Continue to be monitored patient follows up with Cardiology (3) Hypercholesterolemia: Code(s): E78.00 - Pure hypercholesterolemia, unspecified Category: Medical Plan: Avoid fried foods, chicken skin, eggs, butter margarine, pastries and meat. Be it pork or beef they have a lot of cholesterol on rosuvastatin LDL goal of less than 100 and triglyceride of less than 150 (4) Prostate cancer: Comment: 08/2019 diagnosis - high-grade prostate cancer localized with brachytherapy and GnRH Code(s): C61 - Malignant neoplasm of prostate Category: Medical Plan: Patient continues to be followed up by Urology checking on PSA (5) CVA (cerebral vascular accident): Comment: 2015, drooping of face, no weaness of arms Code(s): I63.9 - Cerebral infarction, unspecified Category: Medical Plan: Continue with anticoagulation with Coumadin (6) Groin pain, chronic, left: Code(s): R10.32 - Left lower quadrant pain; G89.29 - Other chronic pain Category: Medical Plan History of Present Illness The patient is a 69-year-old male presenting for follow-up concerning an ascending aortic aneurysm and management of multiple chronic conditions including hypercholesterolemia, post-mitral valve repair status, and a history of prostate cancer. The patient exhibits a stable health status with noted weight fluctuations and has been adhering to monitoring and medication regimens for cholesterol management with a current LDL of 78. He maintains regular follow-ups with cardiology and urology. He reports experiencing recent and resolved back pain, with ongoing leg pain potentially involving the groin area. This has impacted certain activities, causing him to stop skating and reduce physical exercise. He manages the discomfort by modifications such as changing sleep positions. There are no reported hernias or significant masses, and a detailed workup has been planned to investigate the persistent pain further. Health Maintenance - Regular monitoring of LDL cholesterol, currently maintained at 78 with a goal of less than 100. - PSA and testosterone monitoring for prostate cancer follow-up. - Lifestyle modifications to reduce aneurysm risk, including avoidance of sudden strenuous exertion. - Echocardiogram completed in February 2024 with recommendations for continued monitoring. - Discussion on exercise to improve HDL cholesterol levels; current HDL at 43. Social History - Limitations in physical activities due to persistent leg pain, including reduced hiking and skating. - Reports weight management efforts, with recent noted 7-pound weight loss. Review of Systems - Musculoskeletal: Reports back pain (resolved) and ongoing leg pain radiating to the ankle and affecting sleep positions. Physical Exam - Musculoskeletal- Groin area noted to be tight, with painful motion on physical exertion, no masses or hernias noted. Results - Echocardiogram (February 2024): Ejection Fraction 59%, aneurysm measured at 4.1 cm. - LDL cholesterol: 78 (goal <100). - PSA monitoring ongoing. Plan The management plan includes continued monitoring of the ascending aortic aneurysm with echocardiograms to track changes. Hypercholesterolemia will be managed with ongoing rosuvastatin therapy. Behavioral modifications and avoidance of heavy exertion are important to mitigate aneurysm risk. Regular follow-ups with cardiology and urology will ensure proper surveillance of related conditions. For unresolved leg pain, diagnostic x-rays and physical therapy are planned to address muscular or skeletal contributors potentially. We will re-evaluate in three months to adjust therapeutic approaches in response to the patient's condition. Patient was informed and verbally consented to the use of an ambient scribe for clinic note documentation during this visit. Discussion Notes I discussed the importance of ongoing monitoring and management of the ascending aortic aneurysm with the patient, emphasizing the adherence to lifestyle adjustments and regular follow-ups. We reviewed the existing regimen for hypercholesterolemia and the critical nature of maintaining the LDL levels below 100. There was detailed consideration of the patient's concerns about leg pain and the utility of both diagnostic imaging and physical therapy as a comprehensive approach to manage the condition. We addressed the significance of timely cardio-urology follow-ups to detect any progression or complications in existing conditions such as mitral valve repair outcomes and prostate cancer. All risks, benefits, and alternatives were thoroughly discussed, including justifying the choice of interventions and exploring patient preferences. We agreed on a three-month follow-up for reassessment and further interventions based on progress. Patient Instructions - Continue taking rosuvastatin as prescribed to manage cholesterol levels. - Avoid strenuous isometric exercises to mitigate aneurysm risk. - Attend follow-up appointments with cardiology and urology as previously scheduled. - Engage in recommended exercises to improve HDL cholesterol as advised. - Adhere to planned x-ray and physical therapy appointments for evaluation and management of leg pain. - Contact the office if any new symptoms arise or if current symptoms worsen. Orders: Orders XR hip LT w PEL1V Today G. - Other chronic pain, R10.32 - Left lower quadrant pain PT Evaluation and Treatment Today G. - Other chronic pain, R10.32 - Left lower quadrant pain XR lumbar spine 2-3V Today G. - Other chronic pain, R10.32 - Left lower quadrant pain
== END 2024-08-16 18:06 | disposition home or self-care (01) ==
LOC: HO.HMCH 17:03
PROVIDERS: PCP Internal Medicine; Visit Provider Internal Medicine
DX: I71.20 Thoracic aortic aneurysm, without rupture, unspecified (principal); C61 Malignant neoplasm of prostate; I63.9 Cerebral infarction, unspecified; Z98.890 Other specified postprocedural states; E78.00 Pure hypercholesterolemia, unspecified; R10.32 Left lower quadrant pain; G89.29 Other chronic pain

== ENCOUNTER → 2024-08-16 17:03 | Outpatient (BNVA) | payer MEDICARE, SELFPAY | PROVIDERS: PCP Internal Medicine; Visit Provider Internal Medicine | DX: I71.20 Thoracic aortic aneurysm, without rupture, unspecified (principal); E78.00 Pure hypercholesterolemia, unspecified; C61 Malignant neoplasm of prostate; I63.9 Cerebral infarction, unspecified; R10.32 Left lower quadrant pain; G89.29 Other chronic pain; Z98.890 Other specified postprocedural states | CPT/HCPCS: 96127; 99212 ==

== ENCOUNTER 2024-08-17 08:30 | Outpatient (REF) | payer MEDICARE, SELFPAY ==
--- NOTE | ~2024-08-17 | XR_ITS ---
CLINICAL HISTORY: R10.32 - Left lower quadrant pain Pelvis and left hip two views Comparison: None Findings: No acute fracture or dislocation identified. Moderate degenerative change in hip joints. Prostate radiation seeds noted. Impression: No acute bony abnormality This document has been electronically signed by: Henrry Valadez MD on 08/17/2024 18:32:40
--- NOTE | ~2024-08-17 | XR_ITS ---
CLINICAL HISTORY: R10.32 - Left lower quadrant pain Lumbar spine three views Comparison: None Findings: No acute fracture or dislocation is demonstrated. Posterior alignment is normal throughout. Diffuse moderate degenerative change noted. No radiopaque foreign bodies noted. Impression: No acute processes This document has been electronically signed by: Henrry Valadez MD on 08/17/2024 18:28:26
--- OUTSIDE RECORDS SUMMARY | 2024-08-17 09:05 | XMS_ITS | Encounter Summary ---
Author Organization [facility] Address [address] [place] [address] Care Team Providers Care Iuss Master Analyst Name Role Phone Jorge Glasgow DO Primary Care Provider Encounter Details Date Type Department Care Team (Late st Contact Info) Description 11/03/2019 Scanned Document [facility] Urologic Surgery [address] [place] [address] Misha Solano MD [address] [place] [address] Social History Tobacco Use Types Packs/Day Years Used Date Smoking Tobacco: Never Assessed Sex and Gender Information Value Date Recorded Sex Assigned at Not on file Gender Identity Not on file Sexual Orientation Not on file documented as of this encounter Plan of Treatment Not on file documented as of this encounter Visit Diagnoses Not on filedocumented in this encounter Care Teams Iuss Master Analyst Relationship Specialty Start Date End Date Jorge Glasgow DO [address] [place] [phone] PCP - General Internal Medicine 11/03/19 documented as of this encounter
--- OUTSIDE RECORDS SUMMARY | 2024-08-17 09:05 | XMS_ITS | Clinical Summary ---
Author Organization [facility] Address [address] [place] [address] Care Team Providers Care Diesel Engine Mechanic Name Role Phone Jorge Glasgow DO Primary Care Provider [phone] Social History Tobacco Use Types Packs/Day Years [...] age to complete this topic Care Teams Diesel Engine Mechanic Relationship Specialty Start Date End Date Jorge Glasgow DO [address] [place] [phone] PCP - General Internal Medicine 11/03/19
== END 2024-08-17 08:31 | disposition home or self-care (01) ==
LOC: HO.XRAY 08:30
PROVIDERS: PCP Internal Medicine; Visit Provider Internal Medicine
DX: R10.32 Left lower quadrant pain (principal); G89.29 Other chronic pain
CPT/HCPCS: 72100; 73502

== ENCOUNTER → 2024-08-17 08:34 | Outpatient (BNV) | payer MEDICARE, SELFPAY | PROVIDERS: PCP Internal Medicine; Visit Provider Radiology Diagnostic Radiology | DX: R10.32 Left lower quadrant pain (principal) | CPT/HCPCS: 72100; 73502 ==

== ENCOUNTER 2024-08-30 07:52 | Outpatient (REF) | payer MEDICARE, SELFPAY ==
--- OUTSIDE RECORDS SUMMARY | 2024-08-30 07:58 | XMS_ITS | Encounter Summary ---
Author Organization [facility] Address [address] [place] [address] Care Team Providers Care Search Developer Name Role Phone Jorge Glasgow DO Primary Care Provider Encounter Details Date Type Department Care Team (Late st Contact Info) Description 11/03/[address] [facility] Urologic Surgery [address] [place] [phone] Misha Solano MD [address] [place] [address] Social History Tobacco Use Types Packs/Day Years Used Date Smoking Tobacco: Never Assessed Sex and Gender Information Value Date Recorded Sex Assigned at Not on file Gender Identity Not on file Sexual Orientation Not on file documented as of this encounter Plan of Treatment Not on file documented as of this encounter Visit Diagnoses Not on filedocumented in this encounter Care Teams Search Developer Relationship Specialty Start Date End Date Jorge Glasgow DO [address] [place] [phone] PCP - General Internal Medicine 11/03/19 documented as of this encounter
--- OUTSIDE RECORDS SUMMARY | 2024-08-30 07:58 | XMS_ITS | Clinical Summary ---
Author Organization [facility] Address [address] [place] [address] Care Team Providers Care Java Integration Developer Name Role Phone Jorge Glasgow DO [...] age to complete this topic Care Teams Java Integration Developer Relationship Specialty Start Date End Date Jorge Glasgow DO [address] [place] [phone] PCP - General Internal Medicine 11/03/19
== END 2024-08-30 07:53 | disposition home or self-care (01) ==
LOC: HO.SH 07:52
PROVIDERS: Visit Provider Internal Medicine
DX: Z01.118 Encounter for examination of ears and hearing with other abnormal findings (principal); H90.3 Sensorineural hearing loss, bilateral
CPT/HCPCS: 92557; 92567

== ENCOUNTER 2024-09-02 15:08 | Outpatient (AMB) | payer MEDICARE, SELFPAY ==
[2024-09-02 15:18] LABS: Prothrombin Time Whole Bld POC 31.4 sec (11.1-13.5); ~PT, ~INR - Anti Coag Clinic 2.6 (0.9-1.1)
--- NOTE | 2024-09-02 15:30 | MHC.OFFVISCO ---
Intake Intake Visit Reasons: Anticoagulation Allergies No Known Allergies Allergy (Verified 09/02/24 15:08) Medication List - Last Reconciled 09/02/24 by Le Hay, RN chlorhexidine gluconate 0.12% PO cyanocobalamin (vitamin B-12) 1,000 mcg PO DAILY meloxicam 15 mg PO DAILY metoprolol succinate ER 50 mg PO DAILY rosuvastatin 20 mg PO DAILY tadalafil 10 mg PO .PRN 90 days tadalafil (Cialis) 5 mg PO DAILY 90 days warfarin See Protocol 7.5MG X3DAYS/ 5MG X4DAYS; Nursing Note INR: 2.5 in therapeutic range Medications and supplements reviewed Pt was prescribed meloxicam for pain in the psoas muscle area- he was advised that it can raise the INR - and increase risk of bleeding- he was enc to take it with food to protect his GI tract and to increase greens the weeks he takes it to keep if from raising his INR. If takes it daily he was enc to have a sooner f/u INR. Denies any signs and symptoms of bleeding or bruising or clotting. Bleeding, bruising, clotting discussed Nutritional guidance given Dose: 7.5MG X 1 DAY/ 5MG X 6 DAYS F/U INR: 1 MONTH or sooner if take meloxicam regularly Patient verbalizes understanding of instructions given Anti-Coag Initial Assessment Social Hx Patient Tobacco Use Status: Never used Tobacco alcohol intake: current Alcohol intake frequency: a few times a month Coding Level of Care Code Est Patient Level 1 Diagnoses Current use of anticoagulant therapy Z79.01 Assessment & Plan Assessment & Plan (1) Current use of anticoagulant therapy: Code(s): Z79.01 - intermediate frame tender (current) use of anticoagulants Category: Medical
--- OUTSIDE RECORDS SUMMARY | 2024-09-02 17:35 | XMS_ITS | Encounter Summary ---
Author Organization [facility] Address [address] [place] [address] Care Team Providers Care Wrapping Machine Tender Name Role Phone Jorge Glasgow DO Primary Care Provider [phone] Encounter Details Date Type Department Care Team (Late st Contact Info) Description 11/03/2019 Scanned Document [facility] Urologic Surgery [address] [place] [address] Misha Solano MD [address] [place] [address] Social History Tobacco Use Types Packs/Day Years Used Date Smoking Tobacco: Never Assessed Sex and Gender Information Value Date Recorded Sex Assigned at Not on file Gender Identity Not on file Sexual Orientation Not on file documented as of this encounter Plan of Treatment Not on file documented as of this encounter Visit Diagnoses Not on filedocumented in this encounter Care Teams Wrapping Machine Tender Relationship Specialty Start Date End Date Jorge Glasgow DO [address] [place] [phone] PCP - General Internal Medicine 11/03/19 documented as of this encounter
--- OUTSIDE RECORDS SUMMARY | 2024-09-02 17:35 | XMS_ITS | Clinical Summary ---
Author Organization [facility] Address [address] [place] [address] Care Team Providers Care Vehicle Operator Name Role Phone Jorge Glasgow DO Primary [...] age to complete this topic Care Teams Vehicle Operator Relationship Specialty Start Date End Date Jorge Glasgow DO [address] [place] [phone] PCP - General Internal Medicine 11/03/19
== END 2024-09-02 15:39 | disposition home or self-care (01) ==
LOC: HO.ACS 15:08
PROVIDERS: PCP Internal Medicine; Visit Provider Internal Medicine Medical Oncology
DX: Z79.01 Long term (current) use of anticoagulants (principal)

== ENCOUNTER → 2024-09-02 15:08 | Outpatient (BNVA) | payer MEDICARE, SELFPAY | PROVIDERS: PCP Internal Medicine; Visit Provider Internal Medicine Medical Oncology | DX: Z86.73 Personal history of transient ischemic attack (TIA), and cerebral infarction without residual deficits (principal); Z51.81 Encounter for therapeutic drug level monitoring; Z79.01 Long term (current) use of anticoagulants | CPT/HCPCS: 85610; 99211 ==

== ENCOUNTER 2024-10-07 15:35 | Outpatient (AMB) | payer MEDICARE, SELFPAY ==
--- NOTE | 2024-10-07 15:51 | MHC.OFFVISCO ---
Intake Intake Visit Reasons: Anticoagulation Allergies No Known Allergies Allergy (Verified 10/07/24 15:35) Medication List - Last Reconciled 10/07/24 by Le Hay RN chlorhexidine gluconate 0.12% PO cyanocobalamin (vitamin B-12) 1,000 mcg PO DAILY metoprolol succinate ER 50 mg PO DAILY rosuvastatin 20 mg PO DAILY tadalafil 10 mg PO .PRN 90 days tadalafil (Cialis) 5 mg PO DAILY 90 days warfarin See Protocol 7.5MG X3DAYS/ 5MG X4DAYS; Nursing Note INR: 2.8 in therapeutic range Medications and supplements reviewed No changes in health, diet, medications, or supplements, Denies any signs and symptoms of bleeding or bruising or clotting. Bleeding, bruising, clotting discussed Nutritional guidance given Dose: Keep same dose 7.5mg x 1 day/ 5mg x 6 days F/U INR: 1 month Patient verbalizes understanding of instructions given Anti-Coag Initial Assessment Social Hx Patient Tobacco Use Status: Never used Tobacco alcohol intake: current Alcohol intake frequency: a few times a month Coding Level of Care Code Est Patient Level 1 Diagnoses Current use of anticoagulant therapy Z79.01 Results AMB INR Fingerstick AMB INR Fingerstick 2.8 Last Edit by Le Hay RN on 10/07/24 15:45 MANUAL ENTRY Assessment & Plan Assessment & Plan (1) Current use of anticoagulant therapy: Code(s): Z79.01 - senior living (current) use of anticoagulants Category: Medical
[2024-10-07 15:52] LABS: Prothrombin Time Whole Bld POC 33.7 sec (11.1-13.5); ~PT, ~INR - Anti Coag Clinic 2.8 (0.9-1.1)
--- OUTSIDE RECORDS SUMMARY | 2024-10-07 15:59 | XMS_ITS | Encounter Summary ---
Author Organization [facility] Address [address] [place] [address] Care Team Providers Care Surface Supervisor Name Role Phone Jorge Glasgow DO Primary Care Provider Encounter Details Date Type Department Care Team (Late st Contact Info) Description 11/03/2019 Scanned Document [facility] Urologic Surgery [address] [place] [phone] Misha Solano MD [address] [place] [phone] Social History Tobacco Use Types Packs/Day Years Used Date Smoking Tobacco: Never Assessed Sex and Gender Information Value Date Recorded Sex Assigned at Not on file Legal Sex Male 3:11 PM EDT Gender Identity Not on file Sexual Orientation Not on file documented as of this encounter Plan of Treatment Not on file documented as of this encounter Visit Diagnoses Not on filedocumented in this encounter Care Teams Surface Supervisor Relationship Specialty Start Date End Date Jorge Glasgow DO [address] [place] [phone] PCP - General Internal Medicine 11/03/19 documented as of this encounter
--- OUTSIDE RECORDS SUMMARY | 2024-10-07 15:59 | XMS_ITS | Clinical Summary ---
Author Organization [facility] Address [address] [place] [address] Care Team Providers Care Dressmaker Garment Fitter Name Role Phone Jorge Glasgow Primary Care Provider Social History Tobacco Use [...] Zoster (Shingles) Vaccine (1 of 2) 2007 COVID-19 Vaccine ( - 2023-2 5 season) 2024 Influenza Vaccine 12/24/2024 RSV Vaccine 60 years and old er and Patients (1 - 1-dose 75+ series) 01/07/2032 Hepatitis B Vaccines Aged Out No long er eligible based on patient's age to complete this topic Insurance [facility] - PPO Care Teams Dressmaker Garment Fitter Relationship Specialty Start Date End Date Jorge Glasgow DO [address] [place] [phone] PCP - General Internal Medicine 11/03/19
== END 2024-10-07 15:54 | disposition home or self-care (01) ==
LOC: HO.ACS 15:35
PROVIDERS: PCP Internal Medicine; Visit Provider Internal Medicine Medical Oncology
DX: Z79.01 Long term (current) use of anticoagulants (principal)

== ENCOUNTER → 2024-10-07 15:35 | Outpatient (BNVA) | payer MEDICARE, SELFPAY | PROVIDERS: PCP Internal Medicine; Visit Provider Internal Medicine Medical Oncology | DX: Z86.73 Personal history of transient ischemic attack (TIA), and cerebral infarction without residual deficits (principal); Z79.01 Long term (current) use of anticoagulants; Z51.81 Encounter for therapeutic drug level monitoring | CPT/HCPCS: 85610; 99211 ==

== ENCOUNTER 2024-10-12 11:47 | Outpatient (REF) | payer MEDICARE, SELFPAY ==
--- OUTSIDE RECORDS SUMMARY | 2024-10-12 13:01 | XMS_ITS | Clinical Summary ---
Author Organization [facility] Address [address] [place] [address] Care Team Providers Care Lacquer Spray Booth Operator Name Role Phone Jorge Glasgow Primary Care [...] patient's age to complete this topic Insurance [facility] - PPO Care Teams Lacquer Spray Booth Operator Relationship Specialty Start Date End Date Jorge Glasgow DO [address] [place] [id number] PCP - General Internal Medicine 11/03/19
--- OUTSIDE RECORDS SUMMARY | 2024-10-12 13:01 | XMS_ITS | Encounter Summary ---
Author Organization [facility] Address [address] [place] [address] Care Team Providers Care Marine Gear Keeper Name Role Phone Jorge Glasgow DO Primary Care Provider Encounter Details Date Type Department Care Team (Late st Contact Info) Description 11/03/2019 Scanned Document [facility] Urologic Surgery [address] [place] [phone] Misha Solano MD [address] [place] [id number] Social History Tobacco Use Types Packs/Day Years [...] on filedocumented in this encounter Care Teams Marine Gear Keeper Relationship Specialty Start Date End Date oJrge Glasgow DO [address] [place] [id number] PCP - General Internal Medicine 11/03/19 documented as of this encounter
[2024-10-13 21:28] LABS: Lyme Abs Screen <0.90 index
== END 2024-10-12 11:48 | disposition home or self-care (01) ==
LOC: HO.LAB 11:47
PROVIDERS: PCP Internal Medicine; Visit Provider Internal Medicine
DX: T14.8XXA Other injury of unspecified body region, initial encounter (principal)
CPT/HCPCS: 36415; 86617; 86618

== ENCOUNTER 2024-11-01 15:38 | Outpatient (AMB) | payer MEDICARE, SELFPAY ==
[2024-11-01 15:40] VITALS: BP 126/72; PULSE 69; O2SAT 95; BMI 32.3
--- NOTE | 2024-11-01 15:40 | A.OFFPC_ITS ---
Vital Signs 11/01/24 15:40 Height 5 ft 11 in Weight 231 lb 8 oz BMI 32.3 BP 126/72 Blood Pressure Location Lt brachial Position Sitting Pulse 69 Pulse Source Pulse Oximeter Pulse Oximetry (%) 95 Oxygen Delivery Method Room Air Intake Visit Reasons: L groin pain. cholesterol, HTN, Vice President Marketing & Development Required: No Accompanied by: Self / Same As Patient Allergies No Known Allergies Allergy (Verified 11/01/24 15:42) Tobacco use date assessed: 11/01/24 Fall risk assessment: 1 Fall in past year Last assessed Fall Risk: 11/01/24 Dental Screening Dental Screen Date: 11/01/24 Did you have a dental visit in the last 12 months?: Yes Did you have a dental problem in the last 6 months where you did not have access to dental care?: No Was dental information given to patient?: Patient has dentist [facility] Medical History (Updated 11/01/24 @ 15:54 by Freya Zarco MD) Annual physical exam Ascending aortic aneurysm CVA (cerebral vascular accident) Hypercholesterolemia Mitral valve regurgitation Surgical History H/O mitral valve repair History of umbilical hernia repair Hx of appendectomy Family History Father Liver cancer Mother Lung cancer Social History Housing: House Alcohol intake: current Alcohol intake frequency: a few times a month Comment: twice a month 3 drinks Patient Tobacco Use Status: Never used Tobacco e-Cigarette/Vaping Use: Never Used Second Hand Smoke Exposure: No service: No Current occupational status: retired Cognitive needs: No Hearing needs: No Vision needs: Yes Questionnaire PHQ-9 Over the last 2 weeks, how often have you been bothered by any of the following problems? 1. Little interest or pleasure in doing things: not at all 2. Feeling down, depressed, or hopeless: not at all 3. Trouble falling or staying asleep, or sleeping too much: not at all 4. Feeling tired or having little energy: not at all 5. Poor appetite or overeating: not at all 6. Feeling bad about yourself - or that you are a failure or have let yourself or your family down: not at all 7. Trouble concentrating on things, such as reading the newspaper or watching television: not at all 8. Moving or speaking so slowly that other people could have noticed. Or the opposite - being so fidgety or restless that you have been moving around a lot more than usual: not at all 9. Thoughts that you would be better off or of hurting yourself in some way: not at all Total score: 0 Source: Developed by Drs. Jorge Ribera, Otilia Davidson, Juan A Barboza and colleagues, with an educational lisha from [employer]. Thrive Questionnaire Date Thrive assessed: 11/01/24 I am a: Patient What is your living situation today?: I have a steady place to live Within the past 12 months, did the food you bought not last and you didn't have the money to get more?: Never true Within the past 12 months, did you worry whether your food would run out before you got money to buy more?: Never true Do you have trouble paying for medicines?: No Do you have trouble getting transportation to medical appointments?: No Do you have trouble paying your heating and electricity bill?: No Do you have trouble taking care of your child, family member or friend?: No Do you have trouble with day-to-day activities such as bathing, preparing meals, shopping, managing finances, etc.?: No Are you currently unemployed and looking for a job?: No Are you interested in more education?: No Please select the resources that you would like help with: None Currently or been in a relationship where the following occur: No concerns reported THRIVE Score: 0 AUDIT C Alcohol Use Questionnaire (AUDIT-C) 1. How often do you have a drink containing alcohol?: 4 or more times a week 2. How many drinks containing alcohol do you have on a typical day when you are drinking?: 1 or 2 3. How often do you have six or more drinks on one occasion?: Never Total Score: 4 YEHUDA-7 AMB Questionnaire YEHUDA-7 Date YEHUDA - 7 assessed: 11/01/24 Feeling nervous, anxious, or on edge: 0 = Not at all Not being able to stop or control worryin = Not at all Worrying too much about different things: 0 = Not at all Trouble relaxin = Not at all Being so restless that it is hard to sit still: 0 = Not at all Becoming easily annoyed or irritable: 0 = Not at all Feeling afraid as if something awful might happen: 0 = Not at all Total YEHUDA-7 score (0-4 normal; 5-9 mild; 10-14 moderate; 15-21 severe): 0 Source: Developed by Drs. Jorge Ribera, Otilia Davidson, Juan A Barboza and colleagues, with an educational lisha from [employer]. Physical exam (Primary Care) Vital Signs: Last Vital Signs Pulse 69 11/01/24 15:40 BP 126/72 11/01/24 15:40 Pulse Ox 95 11/01/24 15:40 Oxygen Delivery Method Room Air 11/01/24 15:40 BMI result Body Mass Index 32.3 Tobacco/Smoking Status: Tobacco use Status Tobacco use date assessed 11/01/24 11/01/24 15:44 Patient Tobacco Use Status Never used Tobacco 11/01/24 15:44 e-Cigarette/Vaping Use Never Used 11/01/24 15:44 PHQ-9: PHQ-9 Score PHQ-9: Total score 0 11/01/24 15:54 Thrive Assessment: Date of Thrive Assessment Date Thrive assessed 11/01/24 11/01/24 15:44 Currently or been in a relationship where the following occur: No concerns reported Const General: alert; No acute distress Eyes Conjunctivae: conjunctivae normal Resp Auscultation: clear to auscultation bilaterally Cardio Rate: regular rate Rhythm: regular rhythm GI Inspection: Yes normal to inspection Extrem General: Yes normal to inspection and No edema Coding Level of Care Code Est Pt Level 4 (05714) Complex EM visit Add On G2211 Diagnoses Bilateral primary osteoarthritis of hip M16.0 Lumbar degenerative disc disease M51.369 Ascending aortic aneurysm I71.2 Assessment & Plan Assessment & Plan (1) Bilateral primary osteoarthritis of hip: Code(s): M16.0 - Bilateral primary osteoarthritis of hip Category: Medical Plan: Keep active and if the pain persist may refer to orthopedics (2) Lumbar degenerative disc disease: Code(s): M51.369 - Other intervertebral disc degeneration, lumbar region without mention of lumbar back pain or lower extremity pain Category: Medical Plan: Continue to keep active. (3) Ascending aortic aneurysm: Comment: November 2020 sinus of Valsalva 4.6 cm, ascending aorta 3.7 cm, 02/2022 4.1 cm, 02/2023 4.5 cm February 2024 4.1 cm Code(s): I71.2 - Thoracic aortic aneurysm, without rupture Category: Medical Plan: Patient is being followed up by Cardiology and has ordered for a follow-up echocardiogram Plan History of Present Illness The patient is a 69-year-old male presenting with concerns regarding obesity and a desire to continue losing weight. The patient has a history of prostate cancer diagnosed in 2019, a cerebrovascular accident and deep vein thrombosis both occurring in 2015, hypercholesterolemia, and a mitral valve repair. He also has an ascending aortic aneurysm, with the most recent imaging in February 2024 indicating the size at 4.1 cm. His most recent medical appointment was in July 2023. Recently, the patient noted an 8-pound weight loss and expressed a goal to further reduce weight by 20 to 30 pounds over the next year or two. He is considering new pharmacological aids, specifically injectable medications like Zepbound or Wegovy, which influence satiety and are administered weekly. There is awareness of potential issues with availability and insurance coverage for these medications, as they are a newer treatment with celebrity interest contributing to high demand. The patient expressed some hesitation due to the cost. Alongside his weight loss goals, the patient reports stiffness, though physical therapy has been beneficial. He denies symptoms radiating down his leg, which he previously experienced. Additionally, his last colorectal cancer screening was in March 2019. The patient is considering vaccination against shingles, understanding it is not mandatory but potentially advantageous given his history of childhood chickenpox. Health Maintenance - Discussion on shingles vaccination: Non-mandatory but reduces risk for shingles - Pneumonia and flu vaccines confirmed as up-to-date - Tetanus shot potentially outdated; discussed standard 10-year interval Social History - Weight management: He expressed goal to lose an additional 20-30 pounds - Engagement in physical therapy for stiffness management with progressive improvement Review of Systems - Musculoskeletal: Reports stiffness; denies radicular pain - General: Denies fever or recent infections Physical Exam Results Plan The plan for this visit included considering weight management strategies, particularly the use of medications like Wegovy with awareness of cost and coverage issues. Continuation of physical therapy is advised for management of stiffness, while exploring long-term options for consistent exercise and weight management. Vaccination status was reviewed, with updates where necessary, and the option of the shingles vaccine was presented, noting patient interest. Overall health maintenance with regular screenings and vaccinations was emphasized to the patient. Patient was informed and verbally consented to the use of an ambient scribe for clinic note documentation during this visit. Discussion Notes I discussed with the patient the management of his obesity, exploring pharmacological aids such as Zepbound and Wegovy, which are promising in their effects on satiety but present as costly and with uncertain coverage. We conversed about their benefits, especially in relation to potential improvements in sleep apnea, hypertension, and cardiovascular risk. I clarified the absence of guaranteed long-term effectiveness due to the relative novelty of these medications. Regarding musculoskeletal concerns, continuing physical therapy was advised as the patient is experiencing improvement. Additionally, I provided information about the shingles vaccine, explaining how it decreases the likelihood of this painful virus reactivation and suggesting he consider it. I advised maintaining regular follow-ups for ongoing health monitoring. Patient Instructions - Consider options for weight management including diet, exercise, and potential use of medications such as Wegovy. - Continue engaging in physical therapy to manage stiffness. - Update tetanus vaccination if not received in past 10 years. - Understand potential benefits of shingles vaccination and arrange with pharmacy if interested. - Maintain a balanced diet to support weight loss goals. - Schedule follow-up visits as planned for ongoing assessment and management. Orders: Orders Free T4 (Free Thyroxine) 4 Months E78.00 - Pure hypercholesterolemia, u nspecified Prostate Specific Antigen Scr 4 Months E78.00 - Pure hypercholesterolemia, unspecified Lipid Panel 4 Months E78.00 - Pure hypercholesterolemia, unspecified Hemoglobin A1c 4 Months E78.00 - Pure hypercholesterolemia, unspecified Complete Blood Count Auto Diff 4 Months E78.00 - Pure hypercholesterolemia, unspecified Comprehensive Met. Panel 4 Months E78.00 - Pure hypercholesterolemia, unspecified Thyroid Stimulating Hormone 4 Months E78.00 - Pure hypercholesterolemia, unspecified Vitamin B12 and Folate 4 Months E78.00 - Pure hypercholesterolemia, unspecified
--- OUTSIDE RECORDS SUMMARY | 2024-11-01 17:20 | XMS_ITS | Encounter Summary ---
Author Organization [facility] Address [address] [place] [address] Care Team Providers Care Infusion Therapy Nurse Name Role Phone Jorge Glasgow DO Primary Care Provider Encounter Details Date Type Department Care Team (Late st Contact Info) Description 11/03/2019 Scanned Document [facility] Urologic Surgery [address] [place] [phone] Misha Solano MD [address] [place] [phone] Social History Tobacco Use Types Packs/Day Years [...] on filedocumented in this encounter Care Teams Infusion Therapy Nurse Relationship Specialty Start Date End Date Jorge Glasgow DO [address] [place] [phone] PCP - General Internal Medicine 11/03/19 documented as of this encounter
== END 2024-11-01 16:09 | disposition home or self-care (01) ==
LOC: HO.HMCH 15:38
PROVIDERS: PCP Internal Medicine; Visit Provider Internal Medicine
DX: M16.0 Bilateral primary osteoarthritis of hip (principal); M51.369 Other intervertebral disc degeneration, lumbar region without mention of lumbar back pain or lower extremity pain; I71.20 Thoracic aortic aneurysm, without rupture, unspecified

== ENCOUNTER → 2024-11-01 15:38 | Outpatient (BNVA) | payer MEDICARE, SELFPAY | PROVIDERS: PCP Internal Medicine; Visit Provider Internal Medicine | DX: M16.0 Bilateral primary osteoarthritis of hip (principal); M51.369 Other intervertebral disc degeneration, lumbar region without mention of lumbar back pain or lower extremity pain; I71.20 Thoracic aortic aneurysm, without rupture, unspecified; E66.9 Obesity, unspecified; Z68.32 Body mass index [BMI] 32.0-32.9, adult; Z86.73 Personal history of transient ischemic attack (TIA), and cerebral infarction without residual deficits; Z85.46 Personal history of malignant neoplasm of prostate; Z86.718 Personal history of other venous thrombosis and embolism; Z13.30 Encounter for screening examination for mental health and behavioral disorders, unspecified | CPT/HCPCS: 96127; 99212 ==

== ENCOUNTER 2024-11-18 15:28 | Outpatient (AMB) | payer MEDICARE, SELFPAY ==
[2024-11-18 15:37] LABS: Prothrombin Time Whole Bld POC 56.1 sec (11.1-13.5); ~PT, ~INR - Anti Coag Clinic 4.7 (0.9-1.1)
--- NOTE | 2024-11-18 15:47 | MHC.OFFVISCO ---
Intake Intake Visit Reasons: Anticoagulation Allergies No Known Allergies Allergy (Verified 11/18/24 15:29) Medication List - Last Reconciled 11/18/24 by Le Hay RN chlorhexidine gluconate 0.12% PO cyanocobalamin (vitamin B-12) 1,000 mcg PO DAILY metoprolol succinate ER 50 mg PO DAILY rosuvastatin 20 mg PO DAILY tadalafil 10 mg PO .PRN 90 days tadalafil (Cialis) 5 mg PO DAILY 90 days warfarin See Protocol 7.5MG X3DAYS/ 5MG X4DAYS; Nursing Note INR: 4.7 out of therapeutic range Medications and supplements reviewed- no changes Has had decreased appetite with the heat wave Has been to several graduation parties causing changes in diet Denies any signs and symptoms of bleeding or bruising or clotting. Bleeding, bruising, clotting discussed Nutritional guidance given - paredes greens allows you to absorb more vit k to lower the INR Dose: hold today's dose 7.5mg then resume usual dose 5mg x 6 days/ 7.5mg x 1 day F/U INR: 10 days 11/29/2024 Patient verbalizes understanding of instructions given Anti-Coag Initial Assessment Social Hx Patient Tobacco Use Status: Never used Tobacco alcohol intake: current Alcohol intake frequency: a few times a month Questionnaires HAS-BLED Does the patient had uncontrolled Hypertension?: No Does the patient have renal disease?: No Does the patient have liver disease?: No Does the patient have a history of stroke?: Yes Has the patient had major bleeding or predisposition to bleeding?: Yes (aortic abd anuerysm) Does the patient have labile INRs?: No Is the patient over 65 years of age?: Yes Is the patient on medications that gives them a predisposition to bleeding?: Yes Does the patient use alcohol?: Yes HAS-BLED Score: 5 CHADSVASC Age: 66-74 Gender: Male Does the patient have a history of CHF?: No Does the patient have a history of Hypertension?: No Does the patient have a history of Stroke/TIA/Thromboembolism?: Yes Does the patient have a history of Vascular Disease (prior [place], PAD or aortic plaque)?: Yes (PFO< THORACID AORTIC ANEURYSM) Does the patient have a history of Diabetes?: No CHADS VACS Score: 4 Jonnie Prediction Score Rsk VTE Active Cancer: No Previous VTE, excluding superficial vein thrombosis: Yes Reduced mobility: No Already known Thrombophilic Condition: No With-in last month Trauma and/or Surgery: No Elderly 70 year or older: No Heart and/or Respiratory Failure: No Acute Myocardial infarction and/or Ischemic Stroke: Yes Acute Infection and/or Rheumatologic Disorder: No Obesity (BMI 30 or greater): No Ongoing Hormonal Treatment: No Score: 4 Jonnie Score less than 4; Low Risk of VTE Jonnie Score 4 or greater; High Risk of VTE Coding Level of Care Code Est Patient Level 1 Diagnoses Current use of anticoagulant therapy Z79.01 Results AMB INR Fingerstick AMB INR Fingerstick 4.7 Last Edit by Le Hay RN on 11/18/24 15:41 manual entry Assessment & Plan Assessment & Plan (1) Current use of anticoagulant therapy: Code(s): Z79.01 - MCC (current) use of anticoagulants Category: Medical
--- OUTSIDE RECORDS SUMMARY | 2024-11-18 19:07 | XMS_ITS | Encounter Summary ---
Author Organization [facility] Address [address] [place] [address] Care Team Providers Care Geotechnical Intern Name Role Phone Jorge Glasgow DO Primary Care Provider Encounter Details Date Type Department Care Team (Late st Contact Info) Description 11/03/2019 Scanned Document [facility] Urologic Surgery [address] [place] [phone] Misha Solano MD [address] [place] [phone] Social History Tobacco Use Types Packs/Day Years [...] on filedocumented in this encounter Care Teams Geotechnical Intern Relationship Specialty Start Date End Date Jorge Glasgow DO [address] [place] [phone] PCP - General Internal Medicine 11/03/19 documented as of this encounter
== END 2024-11-18 15:57 | disposition home or self-care (01) ==
LOC: HO.ACS 15:28
PROVIDERS: PCP Internal Medicine; Visit Provider Internal Medicine Medical Oncology
DX: Z79.01 Long term (current) use of anticoagulants (principal)

== ENCOUNTER → 2024-11-18 15:28 | Outpatient (BNVA) | payer MEDICARE, SELFPAY | PROVIDERS: PCP Internal Medicine; Visit Provider Internal Medicine Medical Oncology | DX: Z79.01 Long term (current) use of anticoagulants (principal) | CPT/HCPCS: 85610; 99211 ==

== ENCOUNTER 2024-11-29 15:49 | Outpatient (AMB) | payer MEDICARE, SELFPAY ==
--- OUTSIDE RECORDS SUMMARY | 2024-11-29 15:53 | XMS_ITS | Encounter Summary ---
Author Organization [facility] Address [address] [place] [address] Care Team Providers Care Second Vp Hr Assessment Name Role Phone Jorge Glasgow DO Primary Care Provider [phone] Encounter Details Date Type Department Care Team (Late st Contact Info) Description 11/03/2019 Scanned Document [facility] Urologic Surgery [address] [place] [address] Misha Solano MD [address] [place] [id number] Social History Tobacco Use Types Packs/Day Years [...] on filedocumented in this encounter Care Teams Second Vp Hr Assessment Relationship Specialty Start Date End Date Jorge Glasgow DO [address] [place] [phone] PCP - General Internal Medicine 11/03/19 documented as of this encounter
--- NOTE | 2024-11-29 16:03 | MHC.OFFVISCO ---
Intake Intake Visit Reasons: Anticoagulation Allergies No Known Allergies Allergy (Verified 11/29/24 15:49) Medication List - Last Reconciled 11/29/24 by Le Hay RN chlorhexidine gluconate 0.12% PO cyanocobalamin (vitamin B-12) 1,000 mcg PO DAILY metoprolol succinate ER 50 mg PO DAILY rosuvastatin 20 mg PO DAILY tadalafil 10 mg PO .PRN 90 days tadalafil (Cialis) 5 mg PO DAILY 90 days warfarin See Protocol 7.5MG X3DAYS/ 5MG X4DAYS; Nursing Note INR: 2.2 in therapeutic range Medications and supplements reviewed No changes in health, diet, medications, or supplements, Denies any signs and symptoms of bleeding or bruising or clotting. Bleeding, bruising, clotting discussed Nutritional guidance given Dose: 7.5MG X 1 DAY/ 5MG X 6 DAYS F/U INR: 1 MONTH Patient verbalizes understanding of instructions given Anti-Coag Initial Assessment Social Hx Patient Tobacco Use Status: Never used Tobacco alcohol intake: current Alcohol intake frequency: a few times a month Questionnaires HAS-BLED Does the patient had uncontrolled Hypertension?: No Does the patient have renal disease?: No Does the patient have liver disease?: No Does the patient have a history of stroke?: Yes Has the patient had major bleeding or predisposition to bleeding?: Yes (aortic abd anuerysm) Does the patient have labile INRs?: No Is the patient over 65 years of age?: Yes Is the patient on medications that gives them a predisposition to bleeding?: Yes Does the patient use alcohol?: Yes HAS-BLED Score: 5 CHADSVASC Age: 66-74 Gender: Male Does the patient have a history of CHF?: No Does the patient have a history of Hypertension?: No Does the patient have a history of Stroke/TIA/Thromboembolism?: Yes Does the patient have a history of Vascular Disease (prior [place], PAD or aortic plaque)?: Yes (PFO< THORACID AORTIC ANEURYSM) Does the patient have a history of Diabetes?: No CHADS VACS Score: 4 Jonnie Prediction Score Rsk VTE Active Cancer: No Previous VTE, excluding superficial vein thrombosis: Yes Reduced mobility: No Already known Thrombophilic Condition: No With-in last month Trauma and/or Surgery: No Elderly 70 year or older: No Heart and/or Respiratory Failure: No Acute Myocardial infarction and/or Ischemic Stroke: Yes Acute Infection and/or Rheumatologic Disorder: No Obesity (BMI 30 or greater): No Ongoing Hormonal Treatment: No Score: 4 Jonnie Score less than 4; Low Risk of VTE Jonnie Score 4 or greater; High Risk of VTE Coding Level of Care Code Est Patient Level 1 Diagnoses Current use of anticoagulant therapy Z79.01 Results AMB INR Fingerstick AMB INR Fingerstick 2.2 Last Edit by Le Hay RN on 11/29/24 15:55 manual entry Assessment & Plan Assessment & Plan (1) Current use of anticoagulant therapy: Code(s): Z79.01 - retirement (current) use of anticoagulants Category: Medical
[2024-11-29 16:35] LABS: Prothrombin Time Whole Bld POC 26.8 sec (11.1-13.5); ~PT, ~INR - Anti Coag Clinic 2.2 (0.9-1.1)
== END 2024-11-29 16:08 | disposition home or self-care (01) ==
LOC: HO.ACS 15:49
PROVIDERS: PCP Internal Medicine; Visit Provider Internal Medicine Medical Oncology
DX: Z79.01 Long term (current) use of anticoagulants (principal)

== ENCOUNTER → 2024-11-29 15:49 | Outpatient (BNVA) | payer MEDICARE, SELFPAY | PROVIDERS: PCP Internal Medicine; Visit Provider Internal Medicine Medical Oncology | DX: I69.90 Unspecified sequelae of unspecified cerebrovascular disease (principal); Z51.81 Encounter for therapeutic drug level monitoring; Z79.01 Long term (current) use of anticoagulants | CPT/HCPCS: 85610; 99211 ==

== ENCOUNTER 2024-12-08 06:26 | Outpatient (REF) | payer MEDICARE, SELFPAY ==
[2024-12-08 08:24] LABS: Prostate Specific Antigen < 0.10 ng/mL (<0.05-4.0)
[2024-12-13 08:57] LABS: Testosterone, Free 42.4 pg/mL (35.0-155.0)
== END 2024-12-08 06:27 | disposition home or self-care (01) ==
LOC: HO.LAB 06:26
PROVIDERS: PCP Internal Medicine; Visit Provider Nurse Practitioner Family
DX: C61 Malignant neoplasm of prostate (principal); N52.35 Erectile dysfunction following radiation therapy
CPT/HCPCS: 36415; 84153; 84402; 84403

== ENCOUNTER 2024-12-21 15:00 | Outpatient (AMB) | payer MEDICARE, SELFPAY ==
--- NOTE | 2024-12-21 15:07 | MHC.OFFVIS ---
Intake Visit Reasons: 6m/labs(testosterone pending) Intake Note: Patient is present for 6M/LABS Urology Medication:TADALAFIL Antibiotic Allergy:NONE Blood Thinner:WARFARIN TODAY'S PVR:59ML'S Quality Assurance Assistant Required: No Allergies No Known Allergies Allergy (Verified 12/21/24 15:23) Medication List - Last Reconciled 12/21/24 by DARIUS Krishnamurthy-ASHLYN chlorhexidine gluconate 0.12% PO cyanocobalamin (vitamin B-12) 1,000 mcg PO DAILY metoprolol succinate ER 50 mg PO DAILY rosuvastatin 20 mg PO DAILY tadalafil (Cialis) 5 mg PO DAILY 90 days warfarin See Protocol 7.5MG X3DAYS/ 5MG X4DAYS; HPI Comments Details: Carter is a very pleasant 69-year-old male patient of Dr. Zarco. He has a past medical history of ascending aortic aneurysm, CVA, hypercholesteremia, mitral valve regurgitation, erectile dysfunction, and prostate cancer. He presents to the office today for follow-up of his prostate cancer and erectile dysfunction. Recent PSA and testosterone results reviewed with the patient today as noted and trended below: Last labs PSA & Testosterone: 08/14 PSA <0.1, T 17, 12/14 <0.1, 06/17 <0.1, T 169, 12/15 <0.10, T 322, 06/18 <0.10, T 282, 12/16 PSA <0.10 T 278, 06/19 PSA <0.10 T 343, 12/17 PSA <0.10 T 359 When asked patient reports to be doing and feeling well. In office urinalysis results reviewed with the patient today 1+ leukocytes positive nitrates. When asked he does report noting new onset of dysuria earlier today as well as dark-colored urine over the last 1-2 days. We did discussed potential for urinary tract infection. PVR 59 mLs. He reports compliance with tadalafil 10 mg daily as well as p.r.n. dosing prior to sexual activity and feels this has been extremely helpful and effective in managing his erectile dysfunction. He denies urinary urgency, urinary frequency, incontinence, hematuria, foul smelling urine, changes to urinary stream, flank pain, fever, and or chills. He does report episodes of nocturia however less than 2 times per night. He describes these episodes as self manageable. He discusses upcoming trip to [place] to help his daughter who has recently obtained a new job. He otherwise offers no other issues or concerns at this time. Prostate cancer: Grade group 4. XRT with hormones and brachy boost November 2019 Prostate cancer follow-up Prostate cancer was diagnosed 09/13/19 Dr Solano Diagnosis was reached by 09/13/19 needle biopsy, for elevated PSA, PSA at diagnosis 30, size at TRUS 30. The [place] grade is 8 4 cores from 12 5% 3+4 = 7,10% 3+4 = 7,5% 3+4 = 7, 20% , 4+4 = 8 Total 45%/1200% TNM Classification of Malignant Tumours (TNM) T1c. The D'Ajay (NCCN) risk category is High Risk (PSA > 20, Gl 8+, T3) Initial therapy - 12/12 XRT with boost brachy Imaging - bone scan negative, MRI organ contained Labs - 01/13 PSA < 0.1, T 17 Last GnRH 04/15 Therapeutic plan - laboratory surveillance [facility] Medical History Annual physical exam Ascending aortic aneurysm CVA (cerebral vascular accident) Hypercholesterolemia Mitral valve regurgitation Surgical History H/O mitral valve repair History of umbilical hernia repair Hx of appendectomy Family History Father Liver cancer Mother Lung cancer Social History Housing: House Alcohol intake: current Alcohol intake frequency: a few times a month Comment: twice a month 3 drinks Patient Tobacco Use Status: Never used Tobacco e-Cigarette/Vaping Use: Never Used Second Hand Smoke Exposure: No service: No Current occupational status: retired Cognitive needs: No Hearing needs: No Vision needs: Yes Review of Systems Const Reports as per HPI Eyes Reports no additional complaints ENT Reports no additional complaints Card Reports as per HPI Resp Reports no additional complaints GI Reports no additional complaints Reports as per HPI Musc Reports no additional complaints Neuro Reports no additional complaints Psych Reports no additional complaints Endo Reports no additional complaints Alexis/Lymph Reports no additional complaints Aller/Immun Reports no additional complaints Physical Exam Const General: cooperative, healthy appearing, comfortable, no acute distress, well developed, alert and awake Nutritional Appearance: overweight Orientation/consciousness: patient oriented x3 Limitations: no limitations HEENT Head: Yes normal to inspection, Yes normocephalic and Yes atraumatic Ears: hearing grossly normal bilaterally Eyes General: appearance normal, both eyes and all related structures Neck Neck: Yes normal visual inspection and Yes trachea midline Chest Chest palpation & inspection: normal inspection of the chest Resp Effort & Inspection: normal respiratory effort and able to speak in complete sentences Cardio Rate: regular rate GI Inspection: Yes normal to inspection General: Yes no CVA tenderness Back/Spine/Pelvis Back: no CVA tenderness Skin General skin exam: no rashes or lesions noted Neuro General: patient oriented x3 Extrem General: Yes normal to inspection Psych Appearance: grossly normal and well kempt Mental Status: mental status grossly normal Speech and movement: Normal speech and movement present and Clear speech present Affect: normal affect Attitude: cooperative Thought process: Normal thought process present Thought content: Normal thought content present Insight: Fair insight present (Psych) Judgement: Fair judgement present (Psych) Office Procedures Post Void Residual Post Residual Void Post Void Residual (PVR): 59 [id number] Void Residual by ultrasound Results AMB Urinalysis, Automated UA Leukoctes 70 Max/uL Last Edit by ALESSIA Child on 12/21/24 15:30 UA Nitrite Positive Last Edit by ALESSIA Child on 12/21/24 15:30 UA Urobilinogen 0.2 mg/dL Last Edit by ALESSIA Child on 12/21/24 15:30 UA Protein 100 mg/dL Last Edit by ALESSIA Child on 12/21/24 15:30 UA pH 5.5 Last Edit by ALESSIA Child on 12/21/24 15:30 UA Blood 0 Ryder/uL Last Edit by ALESSIA Child on 12/21/24 15:30 UA Specific [place] 1.030 Last Edit by ALESSIA Child on 12/21/24 15:30 UA Ketone Positive Last Edit by ALESSIA Child on 12/21/24 15:30 UA Bilirubin 1 mg/dL Last Edit by ALESSIA Child on 12/21/24 15:30 UA Glucose 0 mg/dL Last Edit by ALSESIA Child on 12/21/24 15:30 Results Reviewed Results Reviewed: Laboratory Last Values Urine pH (Auto) 5.5 12/21/24 15:29 Specific [place] (Auto) 1.030 12/21/24 15:29 Urine Protein (Auto) 100 mg/dL 12/21/24 15:29 Glucose (UA)(Auto) 0 mg/dL 12/21/24 15:29 Urine Ketones (Auto) Positive 12/21/24 15:29 Urine Blood (Auto) 0 Ryder/uL 12/21/24 15:29 Urine Nitrite (Auto) Positive 12/21/24 15:29 Urine Bilirubin (Auto) 1 mg/dL 12/21/24 15:29 Urine Urobilinogen (Auto) 0.2 mg/dL 12/21/24 15:29 Leukocyte Esterase (Auto) 70 Max/uL 12/21/24 15:29 Assessment & Plan Assessment & Plan (1) Prostate cancer: Comment: 08/2019 diagnosis - high-grade prostate cancer localized with brachytherapy and GnRH Code(s): C61 - Malignant neoplasm of prostate Category: Medical (2) Erectile dysfunction after prostate brachytherapy: Code(s): N52.35 - Erectile dysfunction following radiation therapy Category: Medical (3) Dysuria: Code(s): R30.0 - Dysuria Category: Medical Plan In office urinalysis results reviewed with the patient today; as noted above; will send for urine culture PVR 59 mL Recent PSA and testosterone results reviewed with the patient today; as noted above; stable Continue daily dosing of tadalafil as well as p.r.n. dosing prior to sexual activity. Patient is happy with current voiding parameters Patient denies any urological issues or concerns at this time. PSA and testosterone in 6 months Follow-up in 6 months with labs to be completed prior; or sooner with any issues, concerns, and or questions. Orders: Orders Prostate Specific Antigen 6 Months C61 - Malignant neoplasm of prostate Testosterone, Free/Total 6 Months C61 - Malignant neoplasm of prostate, N52.35 - Erectile dysfunction following radiation therapy AMB Urinalysis Automated Today Z13.9 - Encounter for screening, unspecified Urine Culture Today N39.0 - Urinary tract infection, site not specified Medications: Refilled tadalafil (Cialis) [id number] [facility] [id number] Member [id number] 5 mg PO DAILY 90 tabs 3RF 90 days Patient Instructions: The patient had an opportunity to ask questions regarding the treatment plan. All questions were answered. Physical exam, labs, and imaging were discussed and reviewed in detail. As well as risks, benefits, and discussion of treatment choices. No major barriers to understanding were identified. The patient expressed understanding and agreement with the above treatment plan. The patient was made aware they should contact our office by phone for worsening of their current condition, the appearance of new symptoms, or with any questions or concerns. Compliance is encouraged with any medications and follow up testing that is ordered. It is a privilege to be allowed the opportunity to participate in? your urological care.? Again, if you have any questions or concerns If you have any questions or concerns please do not hesitate to contact me. The office is [phone]. This note is constructed using voice recognition software. While every effort has been made to ensure accuracy automation software engineer errors may have been included. Yours sincerely, TOÑA Krishnamurthy Coding Level of Care Code Est Pt Level 4 (72034) Complex EM visit Add On G2211 Diagnoses Prostate cancer C61 Erectile dysfunction after prostate brachytherapy N52.35 Dysuria R30.0 CPT Codes Post Residual Void - PVR CPT Code: 25294-Uoti Void Residual by ultrasound ([id number])
--- OUTSIDE RECORDS SUMMARY | 2024-12-21 15:54 | XMS_ITS | Encounter Summary ---
Author Organization [facility] Address [address] [place] [address] Care Team Providers Care Supervisor Electrolytic Tinning Name Role Phone Jorge Glasgow DO Primary Care Provider Encounter Details Date Type Department Care Team (Late st Contact Info) Description 11/03/[address] [facility] Urologic Surgery [address] [place] [id number] Misha Solano MD [address] [place] [id number] Social History Tobacco Use Types Packs/Day Years [...] on filedocumented in this encounter Care Teams Supervisor Electrolytic Tinning Relationship Specialty Start Date End Date Jorge Glasgow DO [address] [place] [phone] PCP - General Internal Medicine 11/03/19 documented as of this encounter
== END 2024-12-21 15:52 | disposition home or self-care (01) ==
LOC: HO.HUSH 15:02
PROVIDERS: PCP Internal Medicine; Visit Provider Nurse Practitioner Family
DX: C61 Malignant neoplasm of prostate (principal); N52.35 Erectile dysfunction following radiation therapy; R30.0 Dysuria; Z13.9 Encounter for screening, unspecified
CPT/HCPCS: 99214; G2211

== ENCOUNTER 2024-12-21 15:00 | Outpatient (REF) | payer MEDICARE, SELFPAY | END 2024-12-21 15:01 | disposition home or self-care (01) | LOC: HO.LAB 15:00 | PROVIDERS: PCP Internal Medicine; Visit Provider Nurse Practitioner Family | DX: C61 Malignant neoplasm of prostate (principal); N52.35 Erectile dysfunction following radiation therapy; N39.0 Urinary tract infection, site not specified; R30.0 Dysuria | CPT/HCPCS: 51798; 81003; 87086; 99212 ==

== ENCOUNTER 2025-01-06 14:42 | Outpatient (AMB) | payer MEDICARE, SELFPAY ==
[2025-01-06 14:49] LABS: Prothrombin Time Whole Bld POC 36.8 sec (11.1-13.5); ~PT, ~INR - Anti Coag Clinic 3.1 (0.9-1.1)
--- NOTE | 2025-01-06 14:56 | MHC.OFFVISCO ---
Intake Intake Visit Reasons: Anticoagulation Allergies No Known Allergies Allergy (Verified 01/06/25 14:44) Medication List - Last Reconciled 01/06/25 by Le Hay, RN chlorhexidine gluconate 0.12% PO cyanocobalamin (vitamin B-12) 1,000 mcg PO DAILY metoprolol succinate ER 50 mg PO DAILY rosuvastatin 20 mg PO DAILY tadalafil (Cialis) 5 mg PO DAILY 90 days warfarin See Protocol 7.5MG X3DAYS/ 5MG X4DAYS; Nursing Note INR: 3.1 almost in therapeutic range Medications and supplements reviewed No changes in health, diet, medications, or supplements, Denies any signs and symptoms of bleeding or bruising or clotting. Bleeding, bruising, clotting discussed Nutritional guidance given Dose: keep same dose 7.5mg x 1 day/ 5mg x 6 days F/U INR: 1 month Patient verbalizes understanding of instructions given Anti-Coag Initial Assessment Social Hx Patient Tobacco Use Status: Never used Tobacco alcohol intake: current Alcohol intake frequency: a few times a month Coding Level of Care Code Est Patient Level 1 Diagnoses Current use of anticoagulant therapy Z79.01 Assessment & Plan Assessment & Plan (1) Current use of anticoagulant therapy: Code(s): Z79.01 - terminal worker (current) use of anticoagulants Category: Medical
--- OUTSIDE RECORDS SUMMARY | 2025-01-06 15:20 | XMS_ITS | Encounter Summary ---
Author Organization [facility] Address [address] [place] [address] Care Team Providers Care Quality Control Systems Manager Name Role Phone Jorge Glasgow DO Primary Care Provider [phone] Encounter Details Date Type Department Care Team (Late st Contact Info) Description 11/03/2019 Scanned Document [facility] Urologic Surgery [address] [place] [address] Misha Solano MD [address] [place] [id number] Social History Tobacco Use Types Packs/Day Years [...] on filedocumented in this encounter Care Teams Quality Control Systems Manager Relationship Specialty Start Date End Date Jorge Glasgow DO [address] [place] [id number] PCP - General Internal Medicine 11/03/19 documented as of this encounter
== END 2025-01-06 14:58 | disposition home or self-care (01) ==
LOC: HO.ACS 14:42
PROVIDERS: PCP Internal Medicine; Visit Provider Internal Medicine Medical Oncology
DX: Z79.01 Long term (current) use of anticoagulants (principal)

== ENCOUNTER → 2025-01-06 14:42 | Outpatient (BNVA) | payer MEDICARE, SELFPAY | PROVIDERS: PCP Internal Medicine; Visit Provider Internal Medicine Medical Oncology | DX: Z79.01 Long term (current) use of anticoagulants (principal) | CPT/HCPCS: 85610; 99211 ==

== ENCOUNTER 2025-02-10 14:47 | Outpatient (AMB) | payer MEDICARE, SELFPAY ==
[2025-02-10 15:04] LABS: Prothrombin Time Whole Bld POC 24.5 sec (11.1-13.5); ~PT, ~INR - Anti Coag Clinic 2.0 (0.9-1.1)
--- NOTE | 2025-02-10 15:14 | MHC.OFFVISCO ---
Intake Intake Visit Reasons: Anticoagulation Allergies No Known Allergies Allergy (Verified 02/10/25 14:58) Medication List - Last Reconciled 02/10/25 by Michelle Haskins, RAMIRO chlorhexidine gluconate 0.12% PO cyanocobalamin (vitamin B-12) 1,000 mcg PO DAILY metoprolol succinate ER 50 mg PO DAILY rosuvastatin 20 mg PO DAILY tadalafil (Cialis) 5 mg PO DAILY 90 days warfarin See Protocol 7.5MG X3DAYS/ 5MG X4DAYS; Nursing Note INR: 2.0 in therapeutic range of 2-3 Medications and supplements reviewed No changes in health, diet, medications, or supplements, Denies any signs and symptoms of bleeding or bruising or clotting. Bleeding, bruising, clotting discussed Nutritional guidance given to avoid greens today and have aserving or two of foods from the list that raises the INR. Pt states he will have watermelon. Dose: 5mg X 6 days and 7.5mg X 1 day () F/U INR: 5 weeks Patient verbalizes understanding of instructions given Anti-Coag Initial Assessment Social Hx Patient Tobacco Use Status: Never used Tobacco alcohol intake: current Alcohol intake frequency: a few times a month Coding Level of Care Code Est Patient Level 1 Diagnoses Current use of anticoagulant therapy Z79.01 Assessment & Plan Assessment & Plan (1) Current use of anticoagulant therapy: Code(s): Z79.01 - jail (current) use of anticoagulants Category: Medical
--- OUTSIDE RECORDS SUMMARY | 2025-02-10 16:27 | XMS_ITS | Clinical Summary ---
Author Organization [facility] Address [address] [place] [address] Care Team Providers Care Product Development Technician Name Role Phone MyahJorge lowe Primary Care Provider [phone] Social History Tobacco Use Types Packs/Day Years Used Date Smoking Tobacco: Never Assessed Sex and Gender Information Value Date Recorded Sex Assigned at Not on file Legal Sex Male 3:11 PM EDT Gender Identity Not on file Sexual Orientation Not on file Plan of Treatment Health Maintenance Due Date Last Done Comments Advance Care Planning 1955 Hepatitis C Virus Screening 1955 DTaP/Tdap/Td Vaccines (1 - Tdap) 01/07/1976 Colonoscopy 2002 Pneumococcal Vaccines 50+ (1 of 1 - PCV) 2007 Zoster (Shingles) Vaccine (1 of 2) 2007 Influenza Vaccine 12/24/2024 COVID-19 Vaccine (1 - 2023-2 5 season) 2025 RSV Vaccine 60 years and old er and Patients (1 - 1-dose 75+ series) 01/07/2032 Hepatitis B Vaccines Aged Out No long er eligible based on patient's age to complete this topic Insurance BLUE CROSS OUT OF STATE - PPO Care Teams Product Development Technician Relationship Specialty Start Date End Date Jorge Glasgow DO [address] [place] [id number] PCP - General Internal Medicine 11/03/19
--- OUTSIDE RECORDS SUMMARY | 2025-02-10 16:27 | XMS_ITS | Encounter Summary ---
Author Organization [facility] Address [address] [place] [address] Care Team Providers Care Planimeter Operator Name Role Phone Jorge Glasgow DO Primary Care Provider Encounter Details Date Type Department Care Team (Late st Contact Info) Description 11/03/2019 Scanned Document [facility] Urologic Surgery [address] [place] [address] Misha Solano MD [address] [place] [phone] Social History Tobacco Use Types Packs/Day Years [...] on filedocumented in this encounter Care Teams Planimeter Operator Relationship Specialty Start Date End Date Jorge Glasgow DO [address] [place] [phone] PCP - General Internal Medicine 11/03/19 documented as of this encounter
== END 2025-02-10 15:18 | disposition home or self-care (01) ==
LOC: HO.ACS 14:47
PROVIDERS: PCP Internal Medicine; Visit Provider Internal Medicine Medical Oncology
DX: Z79.01 Long term (current) use of anticoagulants (principal)

== ENCOUNTER → 2025-02-10 14:47 | Outpatient (BNVA) | payer MEDICARE, SELFPAY | PROVIDERS: PCP Internal Medicine; Visit Provider Internal Medicine Medical Oncology | DX: Z86.73 Personal history of transient ischemic attack (TIA), and cerebral infarction without residual deficits (principal); Z79.01 Long term (current) use of anticoagulants; Z51.81 Encounter for therapeutic drug level monitoring | CPT/HCPCS: 85610; 99211 ==

== ENCOUNTER → 2025-02-15 08:27 | Outpatient (REF) | payer MEDICARE, SELFPAY ==
--- OUTSIDE RECORDS SUMMARY | 2025-02-15 09:26 | XMS_ITS | Encounter Summary ---
Author Organization [facility] Address [address] [place] [address] Care Team Providers Care Engine Room Helper Name Role Phone Jorge Glasgow DO Primary Care Provider [phone] Encounter Details Date Type Department Care Team (Late st Contact Info) Description 11/03/2019 Scanned Document [facility] Urologic Surgery [address] [place] [address] Misha Solano MD [address] [place] [phone] Social History Tobacco Use Types Packs/Day Years [...] on filedocumented in this encounter Care Teams Engine Room Helper Relationship Specialty Start Date End Date Jorge Glasgow DO [address] [place] [phone] PCP - General Internal Medicine 11/03/19 documented as of this encounter
--- OUTSIDE RECORDS SUMMARY | 2025-02-15 09:26 | XMS_ITS | Clinical Summary ---
Author Organization [facility] Address [address] [place] [address] Care Team Providers Care Research Assistant Name Role Phone MyahJorge lowe Primary Care Provider Social History Tobacco Use [...] OUT OF STATE - PPO Care Teams Research Assistant Relationship Specialty Start Date End Date Jorge Glasgow DO [address] [place] [phone] PCP - General Internal Medicine 11/03/19
== END ==
LOC: HO.CARD 08:27
PROVIDERS: PCP Internal Medicine; Visit Provider Internal Medicine Cardiovascular Disease
DX: Z13.89 Encounter for screening for other disorder (principal)
CPT/HCPCS: J0280; J2785

== ENCOUNTER 2025-02-22 07:28 | Outpatient (REF) | payer MEDICARE, SELFPAY ==
--- OUTSIDE RECORDS SUMMARY | 2025-02-22 07:32 | XMS_ITS | Encounter Summary ---
Author Organization [facility] Address [address] [place] [address] Care Team Providers Care Weld Engineer Name Role Phone Jorge Glasgow DO Primary Care Provider Encounter Details Date Type Department Care Team (Late st Contact Info) Description 11/03/2019 Scanned Document [facility] Urologic Surgery [address] [place] [phone] Misha Solano MD [address] [place] [address] Social History Tobacco Use Types Packs/Day Years [...] on filedocumented in this encounter Care Teams Weld Engineer Relationship Specialty Start Date End Date Jorge Glasgow DO [address] [place] [phone] PCP - General Internal Medicine 11/03/19 documented as of this encounter
--- OUTSIDE RECORDS SUMMARY | 2025-02-22 07:32 | XMS_ITS | Clinical Summary ---
Author Organization [facility] Address [address] [place] [address] Care Team Providers Care Clamp Remover Name Role Phone MyahJorge lowe Primary Care [...] OUT OF STATE - PPO Care Teams Clamp Remover Relationship Specialty Start Date End Date Jorge Glasgow DO [address] [place] [phone] PCP - General Internal Medicine 11/03/19
[2025-02-22 07:37] LABS: MANUAL DIFF FLAG NO
[2025-02-22 07:43] LABS: Hematocrit 42.6 % (42.0-52.0); Hemoglobin 13.8 g/dl (14.0-18.0); Imm Gran Abs Auto 0.01 X10*3/uL (0.00-0.03); Imm Gran Pct Auto 0.2 % (0.0-0.4); Lymphocytes Absolute Auto 1.2 X10*3/uL (1.2-4.9); Mean Corpuscular HGB Conc 32.4 g/dl (31.0-36.0); Mean Corpuscular Hemoglobin 29.1 pg (27.0-33.0); Mean Corpuscular Volume 89.7 fL (80.0-98.0); NRBC Abs Auto 0.000 X10*3/uL (0.0-0.012); NRBC Pct Auto 0.0 /100WBC (0.0-0.2); Platelet Count 195 X10*3/uL (160-400); Red Blood Count 4.75 X10*6/uL (4.60-5.80); White Blood Count 4.7 X10*3/uL (4.8-10.8)
[2025-02-22 08:25] LABS: Alanine Aminotransferase 11 U/L (0-40); Albumin Level 4.2 g/dL (3.5-5.0); Alkaline Phosphatase 49 U/L (39-117); Anion Gap 9 (12-20); Aspartate Amino Transferase 27 U/L (5-37); Blood Urea Nitrogen 21 mg/dL (9-16); Calcium 9.1 mg/dL (8.4-10.2); Carbon Dioxide 28 mmol/L (22-29); Chloride 109 mmol/L (96-108); Cholesterol 137 mg/dL (<200); Estimated Glomerular Filt Rate > 60; HDL Cholesterol 39 mg/dL (>40); Potassium 4.2 mmol/L (3.3-5.1); Sodium 142 mmol/L (135-145); Total Protein 6.8 g/dL (6.5-8.0); Triglycerides 63 mg/dL (<150)
[2025-02-22 08:34] LABS: Free T4 (Free Thyroxine) 0.99 ng/dL (0.71-1.85); Thyroid Stimulating Hormone 2.44 uIU/mL (0.32-4.0)
[2025-02-22 08:46] LABS: Folate 7.0 ng/mL (> or = 4.0); Vitamin B12 553 pg/mL (200-900)
== END 2025-02-22 07:29 | disposition home or self-care (01) ==
LOC: HO.LAB 07:28
PROVIDERS: PCP Internal Medicine; Visit Provider Internal Medicine
DX: E78.00 Pure hypercholesterolemia, unspecified (principal); Z12.5 Encounter for screening for malignant neoplasm of prostate; Z13.1 Encounter for screening for diabetes mellitus
CPT/HCPCS: 36415; 80053; 80061; 82607; 82746; 83036; 84153; 84439; 84443; 85025

== ENCOUNTER 2025-02-28 17:19 | Outpatient (AMB) | payer MEDICARE, SELFPAY ==
[2025-02-28 17:25] VITALS: BP 134/72; PULSE 76; O2SAT 98; BMI 30.1
--- NOTE | 2025-02-28 17:25 | A.OFFPC_ITS ---
Vital Signs 02/28/25 17:25 Height 5 ft 11 in Weight 216 lb BMI 30.1 BP 134/72 Blood Pressure Location Lt brachial Position Sitting Pulse 76 Pulse Source Pulse Oximeter Pulse Oximetry (%) 98 Oxygen Delivery Method Room Air Intake Visit Reasons: Annual Exam Allergies No Known Allergies Allergy (Verified 02/28/25 17:25) Medication List - Last Reconciled 02/28/25 by Freya Zarco MD chlorhexidine gluconate 0.12% PO cyanocobalamin (vitamin B-12) 1,000 mcg PO DAILY metoprolol succinate ER 50 mg PO DAILY rosuvastatin 20 mg PO DAILY tadalafil (Cialis) 5 mg PO DAILY 90 days warfarin See Protocol 7.5MG X3DAYS/ 5MG X4DAYS; Tobacco use date assessed: 11/01/24 Fall risk assessment: No Falls in past year Last assessed Fall Risk: 02/28/25 Dental Screening Dental Screen Date: 11/01/24 [facility] Medical History Annual physical exam Ascending aortic aneurysm CVA (cerebral vascular accident) Hypercholesterolemia Mitral valve regurgitation Surgical History H/O mitral valve repair History of umbilical hernia repair Hx of appendectomy Family History Father Liver cancer Mother Lung cancer Social History (Updated 02/28/25 @ 17:44 by Freya Zarco MD) Housing: House Alcohol intake: current Alcohol intake frequency: a few times a month Comment: twice a month 3 drinks Patient Tobacco Use Status: Never used Tobacco Tobacco use type: Cigarette Years Smoked: gummy once in a while e-Cigarette/Vaping Use: Never Used Second Hand Smoke Exposure: No service: No Current occupational status: retired Cognitive needs: No Hearing needs: No Vision needs: Yes Questionnaire PHQ-9 Over the last 2 weeks, how often have you been bothered by any of the following problems? 1. Little interest or pleasure in doing things: not at all 2. Feeling down, depressed, or hopeless: not at all 3. Trouble falling or staying asleep, or sleeping too much: not at all 4. Feeling tired or having little energy: not at all 5. Poor appetite or overeating: not at all 6. Feeling bad about yourself - or that you are a failure or have let yourself or your family down: not at all 7. Trouble concentrating on things, such as reading the newspaper or watching television: not at all 8. Moving or speaking so slowly that other people could have noticed. Or the opposite - being so fidgety or restless that you have been moving around a lot more than usual: not at all 9. Thoughts that you would be better off or of hurting yourself in some way: not at all Total score: 0 Depression Screening Interpretation: Negative Depression Screening Done: Yes Source: Developed by Drs. Jorge Ribera, Otilia Davidson, Juan A Barboza and colleagues, with an educational lisha from [employer]. Thrive Questionnaire Date Thrive assessed: 02/28/25 I am a: Patient What is your living situation today?: I have a steady place to live Within the past 12 months, did the food you bought not last and you didn't have the money to get more?: Never true Within the past 12 months, did you worry whether your food would run out before you got money to buy more?: I choose not to answer this question Do you have trouble paying for medicines?: I choose not to answer this question Do you have trouble getting transportation to medical appointments?: I choose not to answer this question Do you have trouble paying your heating and electricity bill?: I choose not to answer this question Do you have trouble taking care of your child, family member or friend?: I choose not to answer this question THRIVE Score: 0 AUDIT C Alcohol Use Questionnaire (AUDIT-C) 1. How often do you have a drink containing alcohol?: 4 or more times a week 2. How many drinks containing alcohol do you have on a typical day when you are drinking?: 1 or 2 3. How often do you have six or more drinks on one occasion?: Never Total Score: 4 YEHUDA-7 AMB Questionnaire YEHUDA-7 Date YEHUDA - 7 assessed: 11/01/24 Source: Developed by Drs. Jorge Ribera, Juan A Velez and colleagues, with an educational lisha from [employer]. Review of Systems Const Denies poor appetite and Denies weakness Eyes Denies no additional complaints ENT Reports Normal hearing present, Denies dizziness, Denies nasal congestion, Denies tinnitus and Denies sore throat Card Denies chest pain, Denies syncope, Denies rapid heart rate and Denies dyspnea Resp Denies cough and Denies dyspnea GI Denies change in stool character, Reports constipation, Denies diarrhea, Denies nausea and Denies vomiting Denies dysuria and Denies urinary frequency Neuro Reports Normal hearing present, Denies confusion, Denies dizziness, Denies syncope and Denies weakness Psych Denies confusion Physical exam (Primary Care) Vital Signs: Last Vital Signs Pulse 76 02/28/25 17:25 BP 134/72 02/28/25 17:25 Pulse Ox 98 02/28/25 17:25 Oxygen Delivery Method Room Air 02/28/25 17:25 BMI result Body Mass Index 30.1 Tobacco/Smoking Status: Tobacco use Status Tobacco use date assessed 11/01/24 02/28/25 17:29 Patient Tobacco Use Status Never used Tobacco 02/28/25 17:29 Tobacco use type Cigarette 02/28/25 17:29 e-Cigarette/Vaping Use Never Used 02/28/25 17:29 PHQ-9: PHQ-9 Score PHQ-9: Total score 0 02/28/25 17:29 Depression Screening Interpretation: Negative Thrive Assessment: Date of Thrive Assessment Date Thrive assessed 02/28/25 02/28/25 17:29 Const General: No confusion Orientation/consciousness: No confusion HENMT Head: Yes normocephalic Ears: external ears normal and TM's normal bilaterally Face and sinus: Yes normal facial exam Mouth: moist mucous membranes Throat: Yes tonsils normal Eyes Conjunctivae: conjunctivae normal Pupils: Equal, round and reactive pupils present and Pupil accommodation reflex normal Direct Ophthalmoscopy: normal light reflex Neck Neck: No lymphadenopathy Thyroid: Thyroid normal Chest Chest palpation & inspection: normal inspection of the chest Resp Effort & Inspection: normal respiratory effort and no audible wheezes Auscultation: clear to auscultation bilaterally, no crackles, no wheezes and lung sounds not diminished Cardio Rate: regular rate Rhythm: regular rhythm Peripheral pulses: radial pulses present and dorsalis pedis present GI Other: guaiac negative , prostate no enlargement Palpation (GI): no masses Auscultation: normal bowel sounds and normoactive bowel sounds Male General Exam: Yes normal external exam Skin General skin exam: no rashes or lesions noted Rashes: no rashes Neuro General: No confusion Cranial nerves: Yes Equal, round and reactive pupils present and Yes Normal hearing present Cognition (Neuro): normal cognition Gait exam (Neuro): Normal gait present Motor exam (neuro): 5/5 motor strength present throughout Deep tendon reflexes (DTR's): Right brachioradialis reflex intensity grade: 2+, Left brachioradialis reflex intensity grade: 2+, Right patellar reflex intensity grade: 2+ and Left patellar reflex intensity grade: 2+ Extrem General: No edema Coding Level of Care Code Est Pt Prev Care >65y(70717) Diagnoses Annual physical exam Z00.00 Ascending aortic aneurysm I71.2 Hypercholesterolemia E78.00 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 (2) Ascending aortic aneurysm: Comment: November 2020 sinus of Valsalva 4.6 cm, ascending aorta 3.7 cm, 02/2022 4.1 cm, 02/2023 4.5 cm February 2024 4.1 cm Code(s): I71.2 - Thoracic aortic aneurysm, without rupture Category: Medical Plan: Continue to follow-up. Patient has a schedule with Cardiology in April (3) Hypercholesterolemia: Code(s): E78.00 - Pure hypercholesterolemia, unspecified Category: Medical Plan: Avoid fried foods, chicken skin, eggs, butter margarine, pastries and meat. Be it pork or beef they have a lot of cholesterol LDL goal of less than 100 and triglyceride of less than 150 on rosuvastatin 20 mg once a day (4) DVT (deep venous thrombosis): Comment: R leg 2016 R distal popliteal Code(s): I82.409 - Acute embolism and thrombosis of unspecified deep veins of unspecified lower extremity Category: Medical Qualifiers: DVT location: lower extremity Affected thrombotic vein of extremity: popliteal Chronicity: chronic Laterality: right Qualified Code(s): I82.531 - Chronic embolism and thrombosis of right popliteal vein Plan: Continue with anticoagulation with Coumadin (5) Prostate cancer: Comment: 08/2019 diagnosis - high-grade prostate cancer localized with brachytherapy and GnRH Code(s): C61 - Malignant neoplasm of prostate Category: Medical Plan: Continue to follow-up with urology PSA is undetectable (6) Anemia: Code(s): D64.9 - Anemia, unspecified Category: Medical Plan: Continue to monitor anemia (7) CVA (cerebral vascular accident): Comment: 2015, drooping of face, no weaness of arms Code(s): I63.9 - Cerebral infarction, unspecified Category: Medical Plan: Control the cholesterol, weight, blood pressure, patient is on anticoagulation Plan History of Present Illness The patient is a 70-year-old male presenting for a physical examination and management of chronic conditions. The patient has a history of obesity, with a recent weight loss of 23 pounds since July, which he attributes to dietary changes and increased physical activity. He reports feeling better overall but continues to experience back pain and stiffness in the groin area, which he manages with physical therapy and stretching exercises. The patient was diagnosed with prostate cancer in 2019 and is currently under surveillance with undetectable prostate-specific antigen (PSA) levels. He is on tadalafil and has regular follow-ups with urology, with the next appointment scheduled for May. In 2015, the patient experienced a deep vein thrombosis (DVT) in the right leg and a cerebrovascular accident (CVA) with facial drooping. He underwent mitral valve repair and is on anticoagulation therapy with warfarin. The patient has hypercholesterolemia, managed with rosuvastatin 20 mg daily, and his LDL cholesterol is currently at 86 mg/dL. He aims to maintain an LDL goal of less than 130 mg/dL and triglycerides of less than 150 mg/dL. The patient has a history of asthma, which is stable, and lumbar degenerative disc disease with hip osteoarthritis, causing intermittent discomfort. He reports that his hip arthritis is exacerbated by certain activities and is exploring mattress options for better sleep support. The patient has a history of ascending aorta dilatation, last measured at 4.1 cm in February 2024, and is scheduled for a cardiology evaluation in April. He also has a history of anemia, with recent blood work showing mild anemia with a hemoglobin of 13.8 g/dL. The patient denies any new diagnoses or surgeries since his last visit and reports no allergies to medications. He consumes alcohol occasionally and denies smoking or recreational drug use, except for occasional use of a 5 mg gummy for sleep. Health Maintenance - Colonoscopy last performed in 2018, next due in 2028 - Cardiology evaluation scheduled for April - Urology follow-up scheduled for May - Blood work scheduled for six months to monitor anemia - Flu shot recommended in February - Discussion about shingles vaccination, not yet administered Social History - Alcohol: Consumes alcohol occasionally, approximately twice a month - Tobacco: Denies smoking - Recreational Drugs: Denies use, except for occasional 5 mg gummy for sleep - Exercise: Engages in physical activity, contributing to recent weight loss - Diet: Recent dietary changes leading to weight loss Review of Systems - General: Reports weight loss of 23 pounds since July - Musculoskeletal: Reports back pain and stiffness in the groin area - Cardiovascular: Denies chest pain, orthopnea, or syncope - Respiratory: Denies dyspnea, cough, or wheezing - Gastrointestinal: Denies nausea, vomiting, or blood in stools - Neurological: Denies dizziness or balance issues Physical Exam General: Cooperative, healthy appearing, comfortable, no acute distress and well developed Orientation: Patient oriented x3 Limitations: No limitations Head: Normal to inspection Ears: Hearing grossly normal bilaterally Nose: Normal external nose present Face and sinus: Normal facial exam Eyes: Appearance normal, both eyes and all related structures Neck: Normal visual inspection and Yes full ROM Respiratory: Normal respiratory effort and able to speak in complete sentences. Clear to auscultation bilaterally Cardiovascular: Regular rate and rhythm. Normal S1 and S2 GI: Normal to inspection. Soft to palpation and nontender Skin: No rashes or lesions noted Neuro: Patient oriented x3 Extremities: Normal to inspection Results - Labs: Hemoglobin 13.8 g/dL, indicating mild anemia - Labs: LDL cholesterol 86 mg/dL - Labs: PSA undetectable - Labs: Normal B12, folic acid, and thyroid levels - Labs: Normal blood sugar and hemoglobin A1c - Labs: Normal liver function tests Plan Patient was informed and verbally consented to the use of an ambient scribe for clinic note documentation during this visit. 1. Obesity The patient has experienced a weight loss of 23 pounds since July, attributed to dietary changes and increased physical activity. Continued emphasis on maintaining a healthy diet and regular exercise is recommended to further manage obesity. 2. Prostate Cancer The patient is under surveillance for prostate cancer with undetectable PSA levels. He is on tadalafil and has regular follow-ups with urology, with the next appointment scheduled for May. 3. Deep Vein Thrombosis (Dvt) The patient has a history of DVT in the right leg and is on anticoagulation therapy with warfarin. Continued anticoagulation therapy is advised to prevent recurrence. 4. Hypercholesterolemia The patient is managing hypercholesterolemia with rosuvastatin 20 mg daily, with an LDL cholesterol level of 86 mg/dL. The goal is to maintain LDL levels below 130 mg/dL and triglycerides below 150 mg/dL. 5. Asthma The patient's asthma is stable, with no recent exacerbations reported. 6. Mitral Valve Repair The patient underwent mitral valve repair and is currently on anticoagulation therapy with warfarin. 7. Cerebrovascular Accident (Cva) The patient has a history of CVA with facial drooping and is on anticoagulation therapy to prevent further events. 8. Ascending Aorta Dilatation The patient has a history of ascending aorta dilatation, last measured at 4.1 cm in February 2024. A cardiology evaluation is scheduled for April to monitor the condition. 9. Lumbar Degenerative Disc Disease The patient experiences intermittent back pain due to lumbar degenerative disc disease. Physical therapy and stretching exercises are part of the management plan. 10. Hip Osteoarthritis The patient has hip osteoarthritis, which causes discomfort exacerbated by certain activities. He is exploring mattress options for better sleep support. 11. Anemia The patient has mild anemia with a hemoglobin level of 13.8 g/dL. Blood work is scheduled for six months to monitor the condition. 12. Hiatal Hernia The patient has a history of hiatal hernia, with no current symptoms reported. 13. Umbilical Hernia The patient has an umbilical hernia, which occasionally causes discomfort when pressure is applied. He is advised to avoid heavy lifting to prevent exacerbation. Discussion Notes During the visit, I discussed the patient's current health status and management plans for his chronic conditions, including obesity, prostate cancer, and cardiovascular health. We reviewed the importance of maintaining a healthy lifestyle, including diet and exercise, to manage obesity and hypercholesterolemia. I emphasized the need for regular follow-ups with urology and cardiology to monitor prostate cancer and ascending aorta dilatation, respectively. We also discussed the patient's anemia and the plan for follow-up blood work in six months. Patient Instructions - Continue with current diet and exercise regimen to manage weight and cholesterol levels. - Follow up with urology in May for prostate cancer surveillance. - Attend cardiology evaluation in April to monitor ascending aorta dilatation. - Schedule blood work in six months to monitor anemia. - Consider getting a flu shot in February. - Avoid heavy lifting to prevent exacerbation of umbilical hernia. Orders: Orders Complete Blood Count Auto Diff 3 Months I63.9 - Cerebral infarction, unspecified Lipid Panel 3 Months E78.00 - Pure hypercholesterolemia, unspecified, I63.9 - Cerebral infarction, unspecified IRON PROFILE 3 Months I63.9 - Cerebral infarction, unspecified Free T4 (Free Thyroxine) 3 Months I63.9 - Cerebral infarction, unspecified Thyroid Stimulating Hormone 3 Months I63.9 - Cerebral infarction, unspecified Vitamin B12 and Folate 3 Months I63.9 - Cerebral infarction, unspecified UA CC w/rflx Micro + Cult 6 Months I63.9 - Cerebral infarction, unspecified, R30.0 - Dysuria Comprehensive Met. Panel 3 Months I63.9 - Cerebral infarction, unspecified Ferritin 3 Months I63.9 - Cerebral infarction, unspecified Hemoglobin A1c 6 Months I63.9 - Cerebral infarction, unspecified
--- OUTSIDE RECORDS SUMMARY | 2025-02-28 18:38 | XMS_ITS | Clinical Summary ---
Author Organization [facility] Address [address] [place] [address] Care Team Providers Care Senior Caregiver Name Role Phone MyahJorge lowe Primary Care [...] OUT OF STATE - PPO Care Teams Senior Caregiver Relationship Specialty Start Date End Date Jorge Glasgow DO [address] [place] [id number] PCP - General Internal Medicine 11/03/19
--- OUTSIDE RECORDS SUMMARY | 2025-02-28 18:38 | XMS_ITS | Encounter Summary ---
Author Organization [facility] Address [address] [place] [address] Care Team Providers Care Urologist Name Role Phone Jorge Glasgow DO Primary Care Provider Encounter Details Date Type Department Care Team (Late st Contact Info) Description 11/03/2019 Scanned Document [facility] Urologic Surgery [address] [place] [id number] Misha Solano MD [address] [place] [id number] Social History Tobacco Use Types Packs/Day Years [...] on filedocumented in this encounter Care Teams Urologist Relationship Specialty Start Date End Date Jorge Glasgow DO [address] [place] [id number] PCP - General Internal Medicine 11/03/19 documented as of this encounter
== END 2025-02-28 18:08 | disposition home or self-care (01) ==
LOC: HO.HMCH 17:19
PROVIDERS: PCP Internal Medicine; Visit Provider Internal Medicine
DX: Z00.00 Encounter for general adult medical examination without abnormal findings (principal); I82.531 Chronic embolism and thrombosis of right popliteal vein; C61 Malignant neoplasm of prostate; I63.9 Cerebral infarction, unspecified; I71.20 Thoracic aortic aneurysm, without rupture, unspecified; E78.00 Pure hypercholesterolemia, unspecified; D64.9 Anemia, unspecified

== ENCOUNTER → 2025-02-28 17:19 | Outpatient (BNVA) | payer MEDICARE, SELFPAY | PROVIDERS: PCP Internal Medicine; Visit Provider Internal Medicine | DX: Z00.00 Encounter for general adult medical examination without abnormal findings (principal); I71.20 Thoracic aortic aneurysm, without rupture, unspecified; E78.00 Pure hypercholesterolemia, unspecified; I82.531 Chronic embolism and thrombosis of right popliteal vein; C61 Malignant neoplasm of prostate; D64.9 Anemia, unspecified; E66.9 Obesity, unspecified; J45.909 Unspecified asthma, uncomplicated; K44.9 Diaphragmatic hernia without obstruction or gangrene; K42.9 Umbilical hernia without obstruction or gangrene; Z86.73 Personal history of transient ischemic attack (TIA), and cerebral infarction without residual deficits; Z95.2 Presence of prosthetic heart valve; Z79.01 Long term (current) use of anticoagulants | CPT/HCPCS: 96127; 99397 ==

== ENCOUNTER 2025-03-17 14:57 | Outpatient (AMB) | payer MEDICARE, SELFPAY ==
[2025-03-17 15:04] LABS: Prothrombin Time Whole Bld POC 26.7 sec (11.1-13.5); ~PT, ~INR - Anti Coag Clinic 2.2 (0.9-1.1)
--- NOTE | 2025-03-17 15:04 | MHC.OFFVISCO ---
Intake Intake Visit Reasons: Anticoagulation Allergies No Known Allergies Allergy (Verified 03/17/25 15:00) Medication List - Last Reconciled 03/17/25 by Michelle Haskins, RAMIRO chlorhexidine gluconate 0.12% PO cyanocobalamin (vitamin B-12) 1,000 mcg PO DAILY metoprolol succinate ER 50 mg PO DAILY rosuvastatin 20 mg PO DAILY tadalafil (Cialis) 5 mg PO DAILY 90 days warfarin See Protocol 7.5MG X3DAYS/ 5MG X4DAYS; Nursing Note INR: 2.2 in therapeutic range of 2-3 Medications and supplements reviewed No changes in health, diet, medications, or supplements, Denies any signs and symptoms of bleeding or bruising or clotting. Bleeding, bruising, clotting discussed Nutritional guidance given Dose: 5mg X 6 days and 7.5mg X 1 day () F/U INR: 3 weeks Patient verbalizes understanding of instructions given Anti-Coag Initial Assessment Social Hx Patient Tobacco Use Status: Never used Tobacco Tobacco use type: Cigarette alcohol intake: current Alcohol intake frequency: a few times a month Coding Level of Care Code Est Patient Level 1 Diagnoses Current use of anticoagulant therapy Z79.01 Assessment & Plan Assessment & Plan (1) Current use of anticoagulant therapy: Code(s): Z79.01 - [facility] (current) use of anticoagulants Category: Medical
--- OUTSIDE RECORDS SUMMARY | 2025-03-17 18:50 | XMS_ITS | Clinical Summary ---
Author Organization [facility] Address [address] [place] [address] Care Team Providers Care Director Alumni Relations Name Role Phone MyahJorge lowe Primary Care [...] - 2023-2 5 season) 2025 RSV Vaccine 50 years and old er and Patients (1 - 1-dose 75+ series) 01/07/2032 Hepatitis B Vaccines Aged Out No long er eligible based on patient's age to complete this topic Insurance BLUE CROSS OUT OF STATE - PPO Care Teams Director Alumni Relations Relationship Specialty Start Date End Date Jorge Glasgow DO [address] [place] [id number] PCP - General Internal Medicine 11/03/19
--- OUTSIDE RECORDS SUMMARY | 2025-03-17 18:50 | XMS_ITS | Encounter Summary ---
Author Organization [facility] Address [address] [place] [address] Care Team Providers Care Plaster Helper Name Role Phone Jorge Glasgow DO Primary Care Provider Encounter Details Date Type Department Care Team (Late st Contact Info) Description 11/03/2019 Scanned Document [facility] Urologic Surgery [address] [place] [id number] Misha Solano MD [address] [place] [id number] Social History Tobacco Use Types Packs/Day Years [...] on filedocumented in this encounter Care Teams Plaster Helper Relationship Specialty Start Date End Date Jorge Glasgow DO [address] [place] [id number] PCP - General Internal Medicine 11/03/19 documented as of this encounter
== END 2025-03-17 15:20 | disposition home or self-care (01) ==
LOC: HO.ACS 14:57
PROVIDERS: PCP Internal Medicine; Visit Provider Internal Medicine Medical Oncology
DX: Z79.01 Long term (current) use of anticoagulants (principal)

== ENCOUNTER → 2025-03-17 14:57 | Outpatient (BNVA) | payer MEDICARE, SELFPAY | PROVIDERS: PCP Internal Medicine; Visit Provider Internal Medicine Medical Oncology | DX: Z79.01 Long term (current) use of anticoagulants (principal) | CPT/HCPCS: 85610; 99211 ==

== ENCOUNTER 2025-04-11 14:51 | Outpatient (AMB) | payer MEDICARE, SELFPAY ==
[2025-04-11 15:12] LABS: Prothrombin Time Whole Bld POC 45.5 sec (11.1-13.5); ~PT, ~INR - Anti Coag Clinic 3.8 (0.9-1.1)
--- NOTE | 2025-04-11 15:23 | MHC.OFFVISCO ---
Intake Intake Visit Reasons: Anticoagulation Allergies No Known Allergies Allergy (Verified 04/11/25 15:05) Medication List - Last Reconciled 04/11/25 by Le Hay RN chlorhexidine gluconate 0.12% PO cyanocobalamin (vitamin B-12) 1,000 mcg PO DAILY metoprolol succinate ER 50 mg PO DAILY rosuvastatin 20 mg PO DAILY tadalafil (Cialis) 5 mg PO DAILY 90 days warfarin See Protocol 7.5MG X3DAYS/ 5MG X4DAYS; Nursing Note INR 3.8?? out of therapeutic range Medications and supplements reviewed Patient status: S/P HUNTING TRTIP X 14 DAYS - HAS NOT HAD USUAL MEALS / DIET- JUST RETURNED HOME YESTERDAY Medications or supplements: NO CHANGES Diet: NOT HIS USUAL Denies any signs and symptoms of bleeding or clotting or unusual bruising Bleeding, bruising, clotting discussed Nutritional guidance given: GREENS TODAY AND TOMORROW Dose: HOLD TODAY THEN RESUME USUAL DOSE 5MG X 6 DAYS/ 7.5MG FRIDAY F/U INR Date : Fri04/13/25 INR NEEDS TO BE DONE WITHIN 24 HOURS OF PROCEDURE AND IN RANGE 2.0-3.0 PER DENTIST- HE WILL BRING IN INFO AGAIN FRI ?? Patient verbalizing understanding of instructions given. Anti-Coag Initial Assessment Social Hx Patient Tobacco Use Status: Never used Tobacco Tobacco use type: Cigarette alcohol intake: current Alcohol intake frequency: a few times a month Coding Level of Care Code Est Patient Level 1 Diagnoses Current use of anticoagulant therapy Z79.01 Results AMB INR Fingerstick AMB INR Fingerstick 3.8 Last Edit by Le Hay RN on 04/11/25 15:13 manual entry Assessment & Plan Assessment & Plan (1) Current use of anticoagulant therapy: Code(s): Z79.01 - terminal operations manager (current) use of anticoagulants Category: Medical
== END 2025-04-11 15:27 | disposition home or self-care (01) ==
LOC: HO.ACS 14:51
PROVIDERS: PCP Internal Medicine; Visit Provider Internal Medicine Medical Oncology
DX: Z79.01 Long term (current) use of anticoagulants (principal)

== ENCOUNTER → 2025-04-11 14:51 | Outpatient (BNVA) | payer MEDICARE, SELFPAY | PROVIDERS: PCP Internal Medicine; Visit Provider Internal Medicine Medical Oncology | DX: Z79.01 Long term (current) use of anticoagulants (principal) | CPT/HCPCS: 85610; 99211 ==

== ENCOUNTER 2025-04-13 09:04 | Outpatient (AMB) | payer MEDICARE, SELFPAY ==
--- NOTE | 2025-04-13 09:15 | MHC.OFFVISCO ---
Intake Intake Visit Reasons: Anticoagulation Allergies No Known Allergies Allergy (Verified 04/13/25 09:07) Medication List - Last Reconciled 04/13/25 by Linda Caruso, RN chlorhexidine gluconate 0.12% PO cyanocobalamin (vitamin B-12) 1,000 mcg PO DAILY metoprolol succinate ER 50 mg PO DAILY rosuvastatin 20 mg PO DAILY tadalafil (Cialis) 5 mg PO DAILY 90 days warfarin See Protocol 7.5MG X3DAYS/ 5MG X4DAYS; Nursing Note INR: 2.9- in therapeutic range 2-3 Medications and supplements reviewed No changes in health, diet, medications, or supplements, Denies any signs and symptoms of bleeding or bruising or clotting. Bleeding, bruising, clotting discussed Nutritional guidance given Dose: 5mg x 6, 7.5mg x 1 F/U INR: 1 week Patient verbalizes understanding of instructions given pt to have 2 dental implants at [facility] in [place], [place] tom. t/c placed to dental office. spoke to Marlin. made aware of INR today INR faxed to dental office, pt instructed to question dosing for tomm if bleeding during procedure. Anti-Coag Initial Assessment Social Hx Patient Tobacco Use Status: Never used Tobacco Tobacco use type: Cigarette alcohol intake: current Alcohol intake frequency: a few times a month Coding Level of Care Code Est Patient Level 1 Diagnoses Current use of anticoagulant therapy Z79.01 Assessment & Plan Assessment & Plan (1) Current use of anticoagulant therapy: Code(s): Z79.01 - [facility] (current) use of anticoagulants Category: Medical
[2025-04-13 09:16] LABS: Prothrombin Time Whole Bld POC 35.1 sec (11.1-13.5); ~PT, ~INR - Anti Coag Clinic 2.9 (0.9-1.1)
--- OUTSIDE RECORDS SUMMARY | 2025-04-13 16:55 | XMS_ITS | Clinical Summary ---
Author Organization [facility] Address [address] [place] [address] Care Team Providers Care Briar Wood Sorter Name Role Phone MyahJorge lowe Primary Care [...] OUT OF STATE - PPO Care Teams Briar Wood Sorter Relationship Specialty Start Date End Date Jorge Glasgow DO [address] [place] [address] PCP - General Internal Medicine 11/03/19
--- OUTSIDE RECORDS SUMMARY | 2025-04-13 16:55 | XMS_ITS | Encounter Summary ---
Author Organization [facility] Address [address] [place] [address] Care Team Providers Care Registration Representative Name Role Phone Jorge Glasgow DO Primary Care Provider Encounter Details Date Type Department Care Team (Late st Contact Info) Description 11/03/[address] [facility] Urologic Surgery [address] [place] [address] Misha Solano MD [address] [place] [address] Social History Tobacco Use Types Packs/Day Years [...] on filedocumented in this encounter Care Teams Registration Representative Relationship Specialty Start Date End Date Jorge Glasgow DO [address] [place] [address] PCP - General Internal Medicine 11/03/19 documented as of this encounter
== END 2025-04-13 09:39 | disposition home or self-care (01) ==
LOC: HO.ACS 09:04
PROVIDERS: PCP Internal Medicine; Visit Provider Internal Medicine Medical Oncology
DX: Z79.01 Long term (current) use of anticoagulants (principal)

== ENCOUNTER → 2025-04-13 09:04 | Outpatient (BNVA) | payer MEDICARE, SELFPAY | PROVIDERS: PCP Internal Medicine; Visit Provider Internal Medicine Medical Oncology | DX: Z86.73 Personal history of transient ischemic attack (TIA), and cerebral infarction without residual deficits (principal); Z51.81 Encounter for therapeutic drug level monitoring; Z79.01 Long term (current) use of anticoagulants | CPT/HCPCS: 85610; 99211 ==

== ENCOUNTER 2025-04-20 13:50 | Outpatient (AMB) | payer MEDICARE, SELFPAY ==
[2025-04-20 14:05] LABS: Prothrombin Time Whole Bld POC 25.3 sec (11.1-13.5); ~PT, ~INR - Anti Coag Clinic 2.1 (0.9-1.1)
--- NOTE | 2025-04-20 14:06 | MHC.OFFVISCO ---
Intake Intake Visit Reasons: Anticoagulation Allergies No Known Allergies Allergy (Verified 04/20/25 13:51) Medication List - Last Reconciled 04/20/25 by Gissel Kaur RN chlorhexidine gluconate 0.12% PO cyanocobalamin (vitamin B-12) 1,000 mcg PO DAILY metoprolol succinate ER 50 mg PO DAILY rosuvastatin 20 mg PO DAILY tadalafil (Cialis) 5 mg PO DAILY 90 days warfarin See Protocol 7.5MG X3DAYS/ 5MG X4DAYS; Nursing Note NO CP,SOB,DIET/MED CHANGES,FALLS OR SX OF BLEEDING. PT.STATES NO PROBLEMS SINCE DENTAL SURGERY 1 WEEK AGO. CONTINUE PRESENT WARFARIN DOSE AND FOLLOW-UP IN 3 WEEKS GOOD UNDERSTANDING OF DOSING INSTR. Anti-Coag Initial Assessment Social Hx Patient Tobacco Use Status: Never used Tobacco Tobacco use type: Cigarette alcohol intake: current Alcohol intake frequency: a few times a month Coding Level of Care Code Est Patient Level 1 Diagnoses Current use of anticoagulant therapy Z79.01 Results AMB INR Fingerstick AMB INR Fingerstick 2.1 Last Edit by Gissel Kaur RN on 04/20/25 14:03 Assessment & Plan Assessment & Plan (1) Current use of anticoagulant therapy: Code(s): Z79.01 - alf (current) use of anticoagulants Category: Medical
--- OUTSIDE RECORDS SUMMARY | 2025-04-20 16:54 | XMS_ITS | Clinical Summary ---
Author Organization [facility] Address [address] [place] [address] Care Team Providers Care Customer Energy Specialist Name Role Phone MyahJorge lowe Primary Care [...] OUT OF STATE - PPO Care Teams Customer Energy Specialist Relationship Specialty Start Date End Date Jorge Glasgow DO [address] [place] [address] PCP - General Internal Medicine 11/03/19
--- OUTSIDE RECORDS SUMMARY | 2025-04-20 16:54 | XMS_ITS ---
Author Name Masood De Jesus Address Unknown Organization [facility] Care Team Providers Care Interpreter Translator Name Role Phone Unavailable Primary Care Physician Unavailab le History Of Present Illness This is a 70 year old male who is an established patient who is being seen for an evaluation of skin lesions.Location: body throughoutQuality: asymptomaticDuration: yearsPertinent Negatives: no history of previous skin cancer, no family history of melanoma, and no family history of non-melanoma skin cancerAdditional Visit Reasons: education and counseling about sun exposure, evaluation for suspicious growths, and evaluation of current neviAdditional History: Patient presents for a complete skinexam and denies any concerns today. Medications Medication Generic Name RxNorm Strength Strength Unit Route Dose Dose Form Frequency Date Started Date Ended Status Indication Sig finasteride finaster myron 336698 5 mg Oral 1 table t QD active metoprolol succinate metoprol ol succinat e 6130192 50 mg Oral 1 capsu maame sabakl e,ER 24hr QD active warfarin warfarin 278419 5 mg Oral 1 table t QD active Problems Problem Code Type Status Date of Diagnosis Date of Resolution Disorder of the skin and subcutaneous tissue, unspecified L98.9(ICD- 10) Diagnosis active 07/05/2019 Other seborrheic dermatitis L21.8(ICD- 10) Diagnosis active 07/05/2019 Melanocytic nevi, unspecified D22.9(ICD- 10) Diagnosis active 07/05/2019 Hemangioma of skin and subcutaneous tissue D18.01(ICD -10) Diagnosis active 07/05/2019 Family history of malignant neoplasm of other organs or systems Z80.8(ICD- 10) Diagnosis active 07/05/2019 Actinic keratosis (disorder) 191964141( SNOMED) Diagnosis active 08/10/2021 Melanocytic nevus of trunk (disorder) 319759961( SNOMED) Diagnosis active 08/10/2021 Scar conditions and fibrosis of skin (disorder) 671557259( SNOMED) Diagnosis active 08/10/2021 Seborrheic keratosis (disorder) 023541557( SNOMED) Diagnosis active 08/10/2021 Disorder of pigmentation (disorder) 053178060( SNOMED) Diagnosis active 08/10/2021 Hemangioma of skin and subcutaneous tissue (disorder) 220324593( SNOMED) Diagnosis active 08/10/2021 Asteatosis cutis (disorder) 21364050(S NOMED) Diagnosis active 08/10/2021 Patient encounter status (finding) 985600681( SNOMED) Diagnosis active 08/10/2021 Melanocytic nevus (disorder) 623495444( SNOMED) Diagnosis active 04/15/2025 Seborrheic keratosis (disorder) 174964480( SNOMED) Diagnosis active 04/15/2025 Disorder of pigmentation (disorder) 916001136( SNOMED) Diagnosis active 04/15/2025 Hemangioma of skin and subcutaneous tissue (disorder) 145364693( SNOMED) Diagnosis active 04/15/2025 Patient encounter status (finding) 703262721( SNOMED) Diagnosis active 04/15/2025 Arthritis (disorder) 3672601(SN OMED) Problem active Cerebrovascular accident (disorder) 149911101( SNOMED) Problem active Hearing loss (disorder) 86282380(S NOMED) Problem active Hypercholesterolemia (disorder) 81673557(S NOMED) Problem active Results No data Encounters Service provided at [facility], [address] [place] [address], [facility], [place], [place] [id number]. Office phonenumber is [phone]. Office fax number is [phone]. Encounter Diagnosis Location Date / Time Type Disc harge Status Melanocytic Nevi (D22.9)Seborrheic Keratoses (L82.1)Lentigines (L81.4)Parham Angiomas (D18.01)Skin Education (Z71.89) [facility] 04/15/2025 14:30:00 [facility] [id number] Reason For Referral No data Procedures Procedure Date Documentation of current medications (pr ocedure) 04/15/2025 12:00 am [place] Cryotherapy of skin lesion with liquid n itrogen (procedure) 08/10/2021 12:00 am [place] Documentation of current medications (pr ocedure) 07/18/2019 12:00 am UTC Documentation of past medical history (p rocedure) Replacement of heart valve w ith mechanical valve prosthesis (procedure) Documentation of past medical history (p rocedure) Documentation of past medica l history (procedure) Appendectomy, mitral valve repair Review Of Systems Provider reviewed on Apr 15, 2025.A complete review of systems was performed and was notable for joint aches, muscle weakness, neck stiffness, anxiety, and depression.No Problems With Healing, No Problems With Scarring (hypertrophic Or Keloid), No Problems With Bleeding, No Immunosuppression, No Hay Fever, No Chest Pain, No Fever Or Chills, No Night Sweats, No Unintentional Weight Loss, No Thyroid Problems, No Sore Throat, No Blurry Vision, No Abdominal Pain, No Bloody Stool, No Bloody Urine, No Headaches, No Seizures, No Shortness Of Breath, And No Wheezing. Assessment 1.Melanocytic NeviCounseling2.Seborrheic KeratosesCounseling3.LentiginesCounseling4.Parham AngiomasCounseling5.Skin EducationCounseling Plan of Care Future visit for 04/15/2026 - Follow up in 1 year for: Skin Check - 15 minutes. Other Instructions:CSE slot. Other Instructions: CSE slot. Instructions * I counseled the patient regarding the following:Instructions: Monthly self- skin checks to monitor for any changes in moles are recommended.Expectations: Benign Nevi are pigmented nests of cells within the skin. No treatment is necessary.Contact Office if: Any moles change in size, shape or color; itch, burn or bleed. * I counseled the patient regarding the following:Skin Care: Seborrheic Keratoses are benign. No treatment is necessary.Expectations: Seborrheic Keratoses are benign warty growths. Patients get more ofthem as they age. * I counseled the patient regarding the following:Expectations: Lentigines are benign pigmented lesions that occur on sun-exposed and sun-damaged skin.I recommended the following: Sunscreen * I counseled the patient regarding the following:Expectations: Parham Angiomas are benign vascular growths. No treatment is necessary. * I counseled the patient regarding the following:Sun screen (SPF 30 or greater) should be applied during peak UV exposure (between 10am and 2pm) and reapplied after exercise or swimming.The ABCDEs of melanoma were reviewed with the patient, and the importance of monthly self-examination of moles was emphasized. Should any moles change in shape or color, or itch, bleed or burn, pt will contact our office for evaluation sooner then their interval appointment.I recommended the following: SunscreenSelf-Skin Exams Social History Code Activity Start Date End Date [id number] (SNOMED) Never smoker Sex Male Sexual orientation Unspecified Gender identity Unspecified Vital Signs No data Insurances Coverage Status Coverage Type Relationship to Subscriber Member Identifier Subscriber Identifier Group Identifier Payer Identifier Active Self [id number]
--- OUTSIDE RECORDS SUMMARY | 2025-04-20 16:54 | XMS_ITS | Encounter Summary ---
Author Organization [facility] Address [address] [place] [address] Care Team Providers Care Title Manager Name Role Phone Jorge Glasgow DO Primary Care Provider Encounter Details Date Type Department Care Team (Late st Contact Info) Description 11/03/2019 Scanned Document [facility] Urologic Surgery [address] [place] [address] iMsha Solano MD [address] [place] [address] Social History Tobacco Use Types Packs/Day Years [...] on filedocumented in this encounter Care Teams Title Manager Relationship Specialty Start Date End Date Jorge Glasgow DO [address] [place] [address] PCP - General Internal Medicine 11/03/19 documented as of this encounter
== END 2025-04-20 14:09 | disposition home or self-care (01) ==
LOC: HO.ACS 13:50
PROVIDERS: PCP Internal Medicine; Visit Provider Internal Medicine Medical Oncology
DX: Z79.01 Long term (current) use of anticoagulants (principal)

== ENCOUNTER → 2025-04-20 13:50 | Outpatient (BNVA) | payer MEDICARE, SELFPAY | PROVIDERS: PCP Internal Medicine; Visit Provider Internal Medicine Medical Oncology | DX: Z51.81 Encounter for therapeutic drug level monitoring (principal); Z86.73 Personal history of transient ischemic attack (TIA), and cerebral infarction without residual deficits; Z79.01 Long term (current) use of anticoagulants | CPT/HCPCS: 85610; 99211 ==

== ENCOUNTER → 2025-05-02 07:56 | Outpatient (REF) | payer MEDICARE, SELFPAY ==
--- NOTE | 2025-05-02 07:59 | CA_ITS ---
Transthoracic Echocardiogram Patient (Last, First, Middle): Carter Pantoja A Gender: M Date of : 1955 Age: 70 Procedure Date: 05/02/2025 Procedure Type: Transthoracic Echocardiogram Location: OP Height: 180.34 cm Weight: 97.98 kg BSA: 2.18 m2 Heart Rate: bpm BP: 134 / 72 mmHg Primary School Principal: ALEENA Referring MD: Cecil David MD Plant Attendant: Cecil David MD Symptoms: I71.2 - Thoracic aortic aneurysm, without rupture Study Quality: Adequate ECG Rhythm: Sinus Conclusions: - 1. Normal LV ejection fraction 55-60% 2. Mildly dilated left atrium 3. Prior mitral valve repair with mild mitral regurgitation 4. Moderately dilated aortic root and mildly dilated ascending aorta 5. No gross pericardial effusion Findings Left Ventricle Normal left ventricular size, thickness, and systolic function. The visually estimated ejection fraction is between 55-60%. Spectral Doppler is indicative of a pseudonormal filling pattern. Right Ventricle Mildly increased right ventricular cavity size. There is normal right ventricular systolic function. Atria The left atrium is mildly dilated. There is no evidence of interatrial shunt. The right atrium is normal in size. Aortic Valve There is mild thickening of the aortic valve. There is no aortic valve stenosis. There is no aortic valve regurgitation. Mitral Valve There is mild anterior and severe posterior mitral leaflet thickening. There is mild mitral annular calcification. There is mild mitral valve regurgitation. There is no mitral valve stenosis. thickening of posterior mitral leaflet consistent with prior mitral valve repair Pulmonic Valve The pulmonic valve is likely normal. There is trace pulmonic valve regurgitation. Tricuspid Valve Normal tricuspid valve structure. Tricuspid regurgitation envelope is inadequate for calculation of right ventricular systolic pressure. Normal right atrial pressure. Great Vessels The pulmonary artery was not well visualized. There is moderate dilatation of the sinuses of Valsalva measuring 4.71 cm and mild dilatation of the ascending aorta measuring 4.10 cm. Venous The inferior vena cava is normal in size and collapses greater than 50% with inspiration. Pericardium/Pleural There is no evidence of pericardial effusion. Prior Study Comparison No significant change compared to prior study dated: 03/16/2024. Measurements 2D Linear Measurements IVSd: 0.98 0.6-0.9/0.6-1.0 cm LVIDd: 5.69 3.9-5.3/4.2-5.9 cm LVIDd Index: 2.61 2.4-3.2/2.2-3.1 cm/m2 LVIDs: 3.81 2.0-3.6 cm LVPWd: 0.99 0.7-1.1 cm LA Diam: 3.90 2.7-3.8/3.0-4.0 cm LAIDs Index: 1.79 1.5-2.3 cm/m2 LV Mass: 276.76 67-162/88-224 g LV Mass Index: 126.95 43-95/49-115 g/m2 LVOT Diam: 2.60 3.0+(-)1.3 cm 2D Systolic Function EF 4C: 58.30 >55% EF 2C: 58.00 >55% EF BiP: 58.30 >55% Mitral Valve MV VTI: 0.68 MV Pk [place]: 1.74 MV Mn [place]: 1.12 MV Pk Grad: 12.00 MV Mn Grad: 6.00 MV Pk E: 1.64 MV PK A: 1.18 MV Decel Time: 430.00 E/A: 1.40 E'Lateral: 5.44 E'Medial: 4.13 E/E' Med: 39.70 E/E' Lat: 30.10 PHT: 126.00 MVA PHT: 1.75 MVA Continuity: 1.41 Decel [place]: 3.81 Aortic Valve AoV Pk [place]: 1.24 AoV Mn [place]: 0.89 AoV VTI: 0.33 AoV Pk Grad: 6.00 Aov Mn Grad: 4.00 GWENDOLYN Cont.VTI: 2.88 LVOT LVOT Pk [place]: 0.73 LVOT Mn [place]: 0.48 LVOT VTI: 0.18 LVOT Pk Grad: 2.00 LVOT Mn Grad: 1.00 LVOT Diam: 2.60 LVOT Area: 5.31 Diastolic Function MV Pk E: 1.64 MV Pk A: 1.18 E/A: 1.40 E'Medial: 4.13 E/E' Med: 39.70 E' Laterial: 5.44 E/E' Lat: 30.10 Right Ventricle TAPSE (mm): 23.30 TVS' [place]: 10.30 Tricuspid Valve RA Press: 8.00 Great Vessels Aorta Sinus of Valsalva: 4.71 2.0-3.[address] [place]: 3.50 1.7-3.4 cm Ao Asc: 4.10 2.1-3.4 cm Updated in Other Vendor System with Status of Final Cecil David MD electronically signed on 05/02/2025 4:00:17 PM with status of Final
--- OUTSIDE RECORDS SUMMARY | 2025-05-02 08:01 | XMS_ITS | Clinical Summary ---
Author Organization [facility] Address [address] [place] [address] Care Team Providers Care Location Man Name Role Phone MyahJorge lowe Primary Care [...] 2) 2007 Influenza Vaccine 12/24/2024 COVID-19 Vaccine ( - 2024-2 6 season) 2025 RSV Vaccine 50 years and old er and Patients (1 - 1-dose 75+ series) 01/07/2032 Hepatitis B Vaccines Aged Out No long er eligible based on patient's age to complete this topic Insurance BLUE CROSS OUT OF STATE - PPO Care Teams Location Man Relationship Specialty Start Date End Date Jorge Glasgow DO [address] [place] [phone] PCP - General Internal Medicine 11/03/19
--- OUTSIDE RECORDS SUMMARY | 2025-05-02 08:01 | XMS_ITS | Encounter Summary ---
Author Organization [facility] Address [address] [place] [address] Care Team Providers Care Laundry Helper Name Role Phone Jorge Glasgow DO Primary Care Provider Encounter Details Date Type Department Care Team (Late st Contact Info) Description 11/03/2019 Scanned Document [facility] Urologic Surgery [address] [place] [address] Misha Solano MD [address] [place] [address] Social History Tobacco Use Types Packs/Day Years [...] on filedocumented in this encounter Care Teams Laundry Helper Relationship Specialty Start Date End Date Jorge Glasgow DO [address] [place] [address] PCP - General Internal Medicine 11/03/19 documented as of this encounter
== END ==
LOC: HO.CARD 07:56
PROVIDERS: PCP Internal Medicine; Visit Provider Internal Medicine Cardiovascular Disease
DX: I71.20 Thoracic aortic aneurysm, without rupture, unspecified (principal)
CPT/HCPCS: 93306

== ENCOUNTER → 2025-05-02 07:59 | Outpatient (BNV) | payer MEDICARE, SELFPAY | PROVIDERS: PCP Internal Medicine; Visit Provider Internal Medicine Cardiovascular Disease | DX: I51.7 Cardiomegaly (principal); I34.0 Nonrheumatic mitral (valve) insufficiency; I71.21 Aneurysm of the ascending aorta, without rupture | CPT/HCPCS: 93306 ==

== ENCOUNTER 2025-05-18 09:55 | Outpatient (AMB) | payer MEDICARE, SELFPAY ==
--- OUTSIDE RECORDS SUMMARY | 2025-05-18 10:04 | XMS_ITS | Clinical Summary ---
Author Organization [facility] Address [address] [place] [address] Care Team Providers Care Procurement Coordinator Name Role Phone MyahJorge lowe Primary Care [...] OUT OF STATE - PPO Care Teams Procurement Coordinator Relationship Specialty Start Date End Date Jorge Glasgow DO [address] [place] [address] PCP - General Internal Medicine 11/03/19
--- OUTSIDE RECORDS SUMMARY | 2025-05-18 10:04 | XMS_ITS | Clinical Summary ---
Author Organization [facility] Address [address] [place], [place] [address] Care Team Providers Care Plastic Block Boiler Reliner Name Role Phone Freya Zarco Unavailable Freya Zarco Primary Care Provider [phone] Sergei De Paz DIE REPAIRER STAMPING Unavailable [phone] Allergies No known active allergies Medications tamsulosin (FLOMAX) 0.4 mg cap 24 hr capsule 1 capsule(s) by mouth once a day 03/15/2020 Active metoprolol ER (TOPROL-XL) 25 MG 24 hr tablet tablet(s) oral 03/15/2020 Active warfarin (COUMADIN) 5 MG tablet tablet(s) by mouth once a day as directed 03/15/2020 Active Active Problems Problem Noted Date Diagnosed Date Malignant neoplasm of prostate 12/21/2019 Social History Tobacco Use Types Packs/Day Years Used Date Smoking Tobacco: Never Assessed Sex and Gender Information Value Date Recorded Sex Assigned at Male 07/11/2023 5:55 AM EST Legal Sex Male 11:27 PM EST Gender Identity Male 07/11/2023 5:55 AM EST Sexual Orientation Not on file Plan of Treatment Health Maintenance Due Date Last Done Comments Blood Pressure 1955 Lipid Panel 1955 SDM 1955 Depression Screening 1969 Hepatitis C Screening 1975 DTaP,Tdap,and Td Vaccines (1 - Tdap) 01/07/1976 CT Colonography 2002 Colonoscopy 2002 Colorectal Cancer Screening 2002 FIT 2002 FOBT 2002 Multitarget Stool DNA (Cologuard) 2002 Sigmoidoscopy 2002 Zoster Vaccine (1 of 2) 2007 PSA 05/24/2022 05/24/2020 Prostate Cancer Screening 05/24/2022 COVID-19 Vaccine ( season) 2025 10/16/2020, 09/25/2020 Influenza Vaccine (#1) 2025 , 03/20/2023, 03/20/2022, Additional history exists Pneumococcal Vaccine: 50+ Years Completed 02/12/2022 Meningococcal B Vaccines Aged Out No longer eligible based on patient's age to complete this topic Meningococcal Vaccines Aged Out No lo nger eligible based on patient's age to complete this topic Procedures Procedure Name Priority Date/Time Associated Diagnosis Comments PSA Routine 05/24/2020 12:50 PM EST from Last 3 Months or Most Recently Relevant to Health Maintenance Results * PSA (05/24/2020 12:50 PM EST) Prostate Specific Ag 0.12 0.000 - 4.000 ng/mL CONVERSION FROM [facility] Comment:Changes in PSA value s of less than 0.10..may represent analytic and/or physiologic variation..Measured by [employer] (ECLIA) 05/24/2020 12:5 0 PM EST 05/24/2020 8:53 PM EST Ion Sorenson MD LAB BLOOD ORDERABLES [place] Result CONVERSION FROM [facility] from Last 3 Months or Most Recently Relevant to Health Maintenance Insurance [facility] MEDICARE ADVANTAGE [facility] MEDICARE ADVANTAGE Advance Directives Documents on File Type Date Recorded Patient Game Show Host Expl anation Health Care Proxy 03/16/2020 12:00 AM Adv ance Care Planning_HEALTH CARE PROXY: HCP Health Care Proxy 02/14/2020 12:00 AM Cons ent_PATIENTSITE PROXY Care Teams Plastic Block Boiler Reliner Relationship Specialty Start Date End Date Freya Zarco [address] [address] PCP - Insurance Assigned PCP 11/14/22 Freya Zarco [address] [address] PCP - General 11/10/23 Sergei De Paz NP [address] [place] [address] Nurse Practitioner Nurse Practitioner 11/14/23
--- OUTSIDE RECORDS SUMMARY | 2025-05-18 10:04 | XMS_ITS | Encounter Summary ---
Author Organization [facility] Address [address] [place] [address] Care Team Providers Care Explosives Handler Name Role Phone Freya Zarco Unavailable Freya Zarco Primary Care Provider [phone] Sergei De Paz SURVEY COMPILER Unavailable + [phone] Encounter Details Date Type Department Care Team (Late st Contact Info) Description 11/17/2024 Telephone [facility] Radiation Oncology [address] [address] Ronald Cassidy NP [address] [place] [address] Social History Tobacco Use Types Packs/Day Years Used Date Smoking Tobacco: Never Assessed Sex and Gender Information Value Date Recorded Sex Assigned at Male 07/11/2023 5:55 AM EST Legal Sex Male 11:27 PM EST Gender Identity Male 07/11/2023 5:55 AM EST Sexual Orientation Not on file documented as of this encounter Plan of Treatment Not on file documented as of this encounter Visit Diagnoses Not on filedocumented in this encounter Care Teams Explosives Handler Relationship Specialty Start Date End Date Freya Zarco [address] [address] PCP - Insurance Assigned PCP 11/14/22 Freya Zarco [address] [address] PCP - General 11/10/23 Sergei De Paz NP [address] [place] [address] Nurse Practitioner Nurse Practitioner 11/14/23 documented as of this encounter
--- OUTSIDE RECORDS SUMMARY | 2025-05-18 10:04 | XMS_ITS | Encounter Summary ---
Author Organization [facility] Address [address] [place] [address] Care Team Providers Care Aerospace Control And Warning Systems Name Role Phone Jorge Glasgow DO Primary Care Provider Encounter Details Date Type Department Care Team (Late st Contact Info) Description 11/03/2019 Scanned Document [facility] Urologic Surgery [address] [place] [address] Misha Solano MD [address] [place] [address] Social History Tobacco Use Types Packs/Day Years [...] on filedocumented in this encounter Care Teams Aerospace Control And Warning Systems Relationship Specialty Start Date End Date Jorge Glasgow DO [address] [place] [address] PCP - General Internal Medicine 11/03/19 documented as of this encounter
[2025-05-18 10:10] LABS: Prothrombin Time Whole Bld POC 18.6 sec (11.1-13.5); ~PT, ~INR - Anti Coag Clinic 1.5 (0.9-1.1)
--- NOTE | 2025-05-18 10:18 | MHC.OFFVISCO ---
Intake Intake Visit Reasons: Anticoagulation Allergies No Known Allergies Allergy (Verified 05/18/25 10:03) Medication List - Last Reconciled 05/18/25 by Gissel Kaur, RN chlorhexidine gluconate 0.12% PO cyanocobalamin (vitamin B-12) 1,000 mcg PO DAILY metoprolol succinate ER 50 mg PO DAILY rosuvastatin 20 mg PO DAILY tadalafil (Cialis) 5 mg PO DAILY 90 days warfarin See Protocol 7.5MG X3DAYS/ 5MG X4DAYS; Nursing Note PT. CANNOT SAY FOR SURE THAT HE MISSED A DOSE, BUT THIS SEEMS LIKELY. NO CP,SOB OR SX OF BLEEDING. NO MED CHANGES. BOOST TO 1MGM TODAY AND FOLLOW-UP IN 1 WEEK NO GREENS 2 DAYS GOOD UNDERSTANDING OF DOSING INSTR. INR AND PLAN OF CARE CALLED TO [facility]) AT 10;23AM Anti-Coag Initial Assessment Social Hx Patient Tobacco Use Status: Never used Tobacco Tobacco use type: Cigarette alcohol intake: current Alcohol intake frequency: a few times a month Coding Level of Care Code Est Patient Level 1 Diagnoses Current use of anticoagulant therapy Z79.01 Assessment & Plan Assessment & Plan (1) Current use of anticoagulant therapy: Code(s): Z79.01 - prison (current) use of anticoagulants Category: Medical
== END 2025-05-18 10:24 | disposition home or self-care (01) ==
LOC: HO.ACS 09:55
PROVIDERS: PCP Internal Medicine; Visit Provider Internal Medicine Medical Oncology
DX: Z79.01 Long term (current) use of anticoagulants (principal)

== ENCOUNTER → 2025-05-18 09:55 | Outpatient (BNVA) | payer MEDICARE, SELFPAY | PROVIDERS: PCP Internal Medicine; Visit Provider Internal Medicine Medical Oncology | DX: Z51.81 Encounter for therapeutic drug level monitoring (principal); Z79.01 Long term (current) use of anticoagulants | CPT/HCPCS: 85610; 99211 ==

== ENCOUNTER 2025-05-25 10:32 | Outpatient (AMB) | payer MEDICARE, SELFPAY ==
--- NOTE | 2025-05-25 10:51 | MHC.OFFVISCO ---
Intake Intake Visit Reasons: Anticoagulation Allergies No Known Allergies Allergy (Verified 05/25/25 10:44) Medication List - Last Reconciled 05/25/25 by Linda Caruso RN chlorhexidine gluconate 0.12% PO cyanocobalamin (vitamin B-12) 1,000 mcg PO DAILY metoprolol succinate ER 50 mg PO DAILY rosuvastatin 20 mg PO DAILY tadalafil (Cialis) 5 mg PO DAILY 90 days warfarin See Protocol 7.5MG X3DAYS/ 5MG X4DAYS; Nursing Note INR: 2.5- in therapeutic range 2-3 Medications and supplements reviewed-no changes No changes in health, diet, medications, or supplements, Denies any signs and symptoms of bleeding or bruising or clotting. Bleeding, bruising, clotting discussed Nutritional guidance given Dose: 5mg x 6, 7.5 x 1 F/U INR:pt req 4 weeks Patient verbalizes understanding of instructions given Anti-Coag Initial Assessment Social Hx Patient Tobacco Use Status: Never used Tobacco Tobacco use type: Cigarette alcohol intake: current Alcohol intake frequency: a few times a month Coding Level of Care Code Est Patient Level 1 Diagnoses Current use of anticoagulant therapy Z79.01 Assessment & Plan Assessment & Plan (1) Current use of anticoagulant therapy: Code(s): Z79.01 - group home (current) use of anticoagulants Category: Medical
[2025-05-25 10:53] LABS: Prothrombin Time Whole Bld POC 30.3 sec (11.1-13.5); ~PT, ~INR - Anti Coag Clinic 2.5 (0.9-1.1)
--- OUTSIDE RECORDS SUMMARY | 2025-05-25 11:47 | XMS_ITS | Encounter Summary ---
Author Organization [facility] Address [address] [place] [address] Care Team Providers Care Director Weights And Measures Name Role Phone Freya Zarco Unavailable Freya Zarco Primary Care Provider [phone] Sergei De Paz RECRUIT INSTRUCTOR Unavailable + [phone] Encounter Details Date Type Department Care Team (Late st Contact Info) Description 11/17/2024 Telephone [facility] Radiation Oncology [address] [address] Ronald Cassidy NP [address] [place] [address] Social History Tobacco Use Types Packs/Day Years [...] on filedocumented in this encounter Care Teams Director Weights And Measures Relationship Specialty Start Date End Date Freya Zarco [address] [address] PCP - Insurance Assigned PCP 11/14/22 Freya Zarco [address] [address] PCP - General 11/10/23 Sergei De Paz NP [address] [place] [address] Nurse Practitioner Nurse Practitioner 11/14/23 documented as of this encounter
--- OUTSIDE RECORDS SUMMARY | 2025-05-25 11:47 | XMS_ITS | Encounter Summary ---
Author Organization [facility] Address [address] [place] [address] Care Team Providers Care Gas Welding Machine Operator Name Role Phone Jorge Glasgow DO Primary Care Provider Encounter Details Date Type Department Care Team (Late st Contact Info) Description 11/03/2019 Scanned Document [facility] Urologic Surgery [address] [place] [id number] Misha Solano MD [address] [place] [id number] Social History Tobacco Use Types Packs/Day Years [...] on filedocumented in this encounter Care Teams Gas Welding Machine Operator Relationship Specialty Start Date End Date Jorge Glasgow DO [address] [place] [address] PCP - General Internal Medicine 11/03/19 documented as of this encounter
--- OUTSIDE RECORDS SUMMARY | 2025-05-25 11:47 | XMS_ITS | Clinical Summary ---
Author Organization [facility]ly [facility] Address [address] [place] [address] Care Team Providers Care Director Sanitation Bureau Name Role Phone MyahJorge lowe Primary Care [...] OF STATE - PPO Care Teams Director Sanitation Bureau Relationship Specialty Start Date End Date Jorge Glasgow DO [address] [place] [id number] PCP - General Internal Medicine 11/03/19
--- OUTSIDE RECORDS SUMMARY | 2025-05-25 11:47 | XMS_ITS | Clinical Summary ---
Author Organization [facility] Address [address] [place], [place] [id number] Care Team Providers Care Comb Machine Operator Name Role Phone Freya Zarco Unavailable Freya Zarco Primary Care Provider [phone] Sergei De Pza CONSTRUCTION EQUIPMENT OPERATOR Unavailable [phone] Allergies No known active allergies Medications tamsulosin [...] 0.12 0.000 - 4.000 ng/mL CONVERSION FROM [facility] Comment:Changes in PSA value s of less than 0.10..may represent analytic and/or physiologic variation..Measured by [facility] [employer] ([employer]) 05/24/2020 12:5 0 PM EST 05/24/2020 8:53 PM EST Ion Sorenson MD LAB BLOOD ORDERABLES [place] Result CONVERSION FROM [facility] from Last 3 Months or Most Recently Relevant to Health Maintenance Insurance [facility] Advance Directives Documents on File Type Date Recorded Patient Consumer Relations Specialist Expl anation Health Care Proxy 03/16/2020 12:00 AM Adv ance Care Planning_HEALTH CARE PROXY: HCP Health Care Proxy 02/14/2020 12:00 AM Cons ent_PATIENTSITE PROXY Care Teams Comb Machine Operator Relationship Specialty Start Date End Date Freya Zarco [address] [address] PCP - Insurance Assigned PCP 11/14/22 Freya Zarco [address] [address] PCP - General 11/10/23 Sergei De Paz NP [address] [place] [address] Nurse Practitioner Nurse Practitioner 11/14/23
== END 2025-05-25 11:04 | disposition home or self-care (01) ==
LOC: HO.ACS 10:32
PROVIDERS: PCP Internal Medicine; Visit Provider Internal Medicine Medical Oncology
DX: Z79.01 Long term (current) use of anticoagulants (principal)

== ENCOUNTER → 2025-05-25 10:32 | Outpatient (BNVA) | payer MEDICARE, SELFPAY | PROVIDERS: PCP Internal Medicine; Visit Provider Internal Medicine Medical Oncology | DX: I63.9 Cerebral infarction, unspecified (principal); Z51.81 Encounter for therapeutic drug level monitoring; Z79.01 Long term (current) use of anticoagulants | CPT/HCPCS: 85610; 99211 ==